=== PATIENT | male | born 1990 | race American Indian/Alaskan Native ===

== ENCOUNTER 2021-04-13 22:26 | Inpatient (IN) | payer SELFPAY ==
[2021-04-13] MEDS ORDERED: methylPREDNISolone Sod Succinate 125 MG/2 ML INJ IV ONE (22:37)
[2021-04-13] MEDS ORDERED: ALBUTEROL 2.5 MG/3 ML NEBU IH ONE (22:37)
[2021-04-13] MEDS ORDERED: SODIUM CHLORIDE 0.9% 1000 ML 1,000 ML IV ONE (22:37)
[2021-04-13] MEDS ORDERED: MAGNESIUM SULFATE 2 GM/50 ML BAG IV ONE (22:37)
[2021-04-13] MEDS ORDERED: CEFEPIME/NS 1 GM/100 ML 1 GM/100 ML BAG IV ONE (22:37)
[2021-04-13] MEDS ORDERED: IPRATROPIUM 0.02% NEBU 2.5 ML IH ONE (22:37)
[2021-04-13] MEDS ORDERED: AZITHROMYCIN/NS 500 MG/250 ML 500 MG/250 ML BAG IV ONE (22:37)
--- NOTE | 2021-04-13 22:40 | Emergency Department Report ---
ED Shortness of Breath HPI - General Chief Complaint: Dyspnea/Respdistress Stated Complaint: SOB, Time Seen by Provider: 04/13/21 22:34 Source: patient, EMS Mode of arrival: Stretcher Limitations: No Limitations - History of Present Illness Initial Comments: Patient is a 31-year-old male who presents emergency room for shortness of breath and fever and asthmatic sounds. Patient states his symptoms started 2 days ago. Patient states symptoms are worsening. Patient states his symptoms are so bad he had to call EMS to come to the hospital. Patient states he is not vaccinated against COVID-19. Patient states that his entire family has Covid at this time. Patient states he has not been tested. Patient states he has multiple sick contacts with your family members with COVID-19. While patient was in the care of EMS and waiting to be assigned a room, EMS took the patient to the bathroom and when the patient went to the standing position h e had a syncopal episode. Syncopal episode was witnessed by EMS. EMS states the caught him and helped him to the floor. EMS states the patient did not hit his head. Patient syncopal episode and loss of consciousness was per brief few seconds. After syncopal episode, the patient was answering questions appropriately. Patient was able to stand up and ambulate to the stretcher with assistance. Patient was then placed on an ER stretcher and transferred to room 20. Report received from EMS. EMS states the patient hypoxic and placed on 2 L of oxygen. Patient was also given albuterol for wheezing. Patient ox improved with albuterol. MD Complaint: shortness of breath -: Sudden Severity: severe Consistency: constant Improves With: rest, bronchodilators Worsens With: exertion Known History Of: asthma Context: recent URI Associated Symptoms: syncope Treatments Prior to Arrival: oxygen, bronchodilator - Related Data Home Oxygen Therapy: No Allergies Allergy/AdvReac Type Severity Reaction Status Date / Time No Known Allergies Allergy Verified 04/13/21 22:40 ED Review of Systems ROS: Stated complaint: SOB, Other details as noted in HPI Constitutional: chills, fever Eyes: denies: eye pain, eye discharge, vision change ENT: denies: ear pain, throat pain Respiratory: cough, shortness of breath, SOB with exertion, SOB at rest, wheezing Cardiovascular: denies: chest pain, palpitations Endocrine: no symptoms reported Gastrointestinal: denies: abdominal pain, nausea, diarrhea Genitourinary: denies: urgency, dysuria Musculoskeletal: denies: back pain, joint swelling, arthralgia Skin: denies: rash, lesions Neurological: as per HPI. denies: headache, paresthesias Psychiatric: denies: anxiety, depression Hematological/Lymphatic: denies: easy bleeding, easy bruising ED Past Medical Hx - Past Medical History Previous Medical History?: Yes Hx Asthma: Yes - Surgical History Past Surgical History?: No - Family History Family history: no significant - Social History Smoking Status: Never Smoker Substance Use Type: None ED Physical Exam - General Limitations: No Limitations General appearance: alert, in distress - Head Head exam: Present: atraumatic, normocephalic - Eye Eye exam: Present: normal appearance - ENT ENT exam: Present: mucous membranes dry - Neck Neck exam: Present: normal inspection - Respiratory Respiratory exam: Present: respiratory distress, wheezes, accessory muscle use - Cardiovascular Cardiovascular Exam: Present: regular rate, normal rhythm. Absent: systolic murmur, diastolic murmur, rubs, gallop - GI/Abdominal GI/Abdominal exam: Present: soft, normal bowel sounds - Rectal Rectal exam: Present: deferred - Extremities Exam Extremities exam: Present: normal inspection - Back Exam Back exam: Present: normal inspection - Neurological Exam Neurological exam: Present: alert, oriented X3 - Psychiatric Psychiatric exam: Present: normal affect, normal mood - Skin Skin exam: Present: warm, normal color, diaphoretic. Absent: rash ED Course Vital Signs 04/13/21 04/13/21 04/13/21 22:27 22:36 23:00 Temperature 99.5 F 100.0 F H Pulse Rate 98 H 113 H 104 H Respiratory 17 18 13 Rate Blood Pressure 102/56 115/75 Blood Pressure 124/70 [Left] O2 Sat by Pulse 94 97 97 Oximetry 04/13/21 04/14/21 04/14/21 23:30 00:00 01:31 Temperature Pulse Rate 90 82 88 Respiratory 17 11 L 17 Rate Blood Pressure 111/59 127/76 110/67 Blood Pressure [Left] O2 Sat by Pulse 96 Oximetry 04/14/21 02:32 Temperature 98.5 F Pulse Rate 86 Respiratory 21 Rate Blood Pressure Blood Pressure 117/72 [Left] O2 Sat by Pulse 98 Oximetry - Reevaluation(s) Reevaluation #1: Patient received antibiotics, breathing treatment and steroids. Patient states he is feeling a little bit better. Patient oxygen has improved. Patient still requiring oxygen support. 04/13/21 23:45 Reevaluation #2: I discussed all results with patient. I discussed plan of care with patient. Patient agrees with plan of care and admission. Patient to be admitted to the hospitalist service. 04/14/21 02:45 - Consultations Consultation #1: Hospitalist consulted for admission. Hospitalist to admit patient. 04/14/21 02:45 ED Medical Decision Making - Lab Data Result diagrams: 04/13/21 23:02 04/13/21 23:02 - EKG Data -: EKG Interpreted by Me EKG shows normal: sinus rhythm, axis, intervals, QRS complexes, ST-T waves Rate: normal - Radiology Data Radiology results: report reviewed, image reviewed interpreted by me: Chest x-ray: Bilateral pneumonia, no pneumothorax, no foreign body, no osseous findings, XR chest 1V ap INDICATION / CLINICAL INFORMATION: Dyspnea. COMPARISON: None available. FINDINGS: SUPPORT DEVICES: None. HEART /PULMONARY VASCULATURE: Cardiac silhouette is accentuated by low lung volumes. No significant pulmonary vasculature congestion. LUNGS / PLEURA: Moderate multifocal pulmonary airspace opacities are present. No sizable pleural effusion. No pneumothorax. ADDITIONAL FINDINGS: No significant additional findings. IMPRESSION: Bilateral pulmonary airspace opacities, concerning for atypical pneumonia. CT HEAD WITHOUT CONTRAST INDICATION / CLINICAL INFORMATION: syncope. TECHNIQUE: All CT scans at this location are performed using CT dose reduction for ALARA by means of automated exposure control. COMPARISON: None available. FINDINGS: BRAIN PARENCHYMA: No acute intracranial hemorrhage. No evidence of recent infarct. No mass effect or midline shift. VENTRICULAR SYSTEM/EXTRA-AXIAL SPACES: Ventricles are normal for age. No extra- axial fluid collection. ORBITS: Normal as visualized. SKELETAL SYSTEM/SOFT TISSUES: Normal bones and soft tissues. PARANASAL SINUSES/MASTOID AIR CELLS: No significant abnormality. ADDITIONAL FINDINGS: None. IMPRESSION: 1. No acute intracranial abnormality. CTA CHEST WITH CONTRAST INDICATION / CLINICAL INFORMATION: sob. hypoxia, syncope. TECHNIQUE: Axial CT images were obtained through the chest after injection of 100 cc Omnipaque 350 IV contrast. 3 plane MIP and/or 3D reconstructions were produced. All CT scans at this location are performed using CT dose reduction for ALARA by means of automated exposure control. COMPARISON: Chest radiograph from yesterday, 04/13/2021 FINDINGS: PULMONARY ARTERIES: No central or segmental pulmonary embolus. THORACIC AORTA: No significant abnormality. HEART: No significant abnormality. ADENOPATHY: Shotty mediastinal and hilar lymph nodes, likely reactive. LUNGS/PLEURA: Moderate multifocal peripheral predominant airspace consolidation. No pleural effusion. No pneumothorax. ADDITIONAL FINDINGS: None. UPPER ABDOMEN: No acute findings. SKELETAL STRUCTURES: No significant osseous abnormality. IMPRESSION: 1. No evidence for pulmonary embolism. 2. Moderate multifocal peripheral predominant airspace consolidation, most compatible with atypical pneumonia. These findings are typical for COVID. - Medical Decision Making Patient is a 31-year-old male who presents emergency room with complaints of shortness of breath. Patient brought in by EMS. Patient found to have as thmatic breathing and hypoxia by EMS and placed on oxygen given albuterol. Patient to wheeze. While patient is waiting to be seen, EMS took the patient back immediately syncopal episode. 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 After his evaluation, the patient was placed back on oxygen due to hypoxia and the patient was given IV antibiotics, IV steroids and magnesium. Patient responded well to treatment. Patient had a CT scan to rule out intracranial process due to syncopal episode. Patient CT scan of the head was negative for acute finding. Patient had a chest x-ray which shows bilateral pneumonia. Due to acidosis and elevated D-dimer, the patient had a CT a of the chest to rule out a acute pulmonary embolism. Patient CTA showed bilateral pneumonia consistent with COVID-19 and was negative for PEs. Patient was monitored for several hours. Patient's oxygen improved but still required oxygen support. Patient admitted to the hospital service for further evaluation and treatment. Critical care time documented due to the multiple reassessments, prolonged time at the bedside, interpretation of diagnostics and labs. - Differential Diagnosis Covid, pneumonia, hypoxia, respiratory failure, asthma Critical Care Time: Yes Critical care time in (mins) excluding proc time.: 45 Critical care attestation.: If time is entered above; I have spent that time in minutes in the direct care of this critically ill patient, excluding procedure time. Critical Care Time: 45 minutes ED Disposition Clinical Impression: Shortness of breath, COVID-19, Hypoxia Syncopal episodes Qualifiers: Syncope type: unspecified Qualified Code(s): R55 - Syncope and collapse Respiratory failure Qualifiers: Chronicity: acute Respiratory failure complication: hypoxia Qualified Code(s): J96.01 - Acute respiratory failure with hypoxia Status asthmaticus Qualifiers: Asthma severity: severe Asthma persistence: unspecified Qualified Code(s): J45.902 - Unspecified asthma with status asthmaticus Acute renal failure Qualifiers: Acute renal failure type: unspecified Qualified Code(s): N17.9 - Acute kidney failure, unspecified Disposition: ADMITTED INPATIENT Is pt being admited?: Yes Does the pt Need Aspirin: No Condition: Critical Instructions: Syncope (ED) Time of Disposition: 02:51
--- NOTE | 2021-04-13 23:10 | XRay Report ---
XR chest 1V ap INDICATION / CLINICAL INFORMATION: Dyspnea. COMPARISON: None available. FINDINGS: SUPPORT DEVICES: None. HEART /PULMONARY VASCULATURE: Cardiac silhouette is accentuated by low lung volumes. No significant p ulmonary vasculature congestion. LUNGS / PLEURA: Moderate multifocal pulmonary airspace opacities are present. No sizable pleural effu antwan. No pneumothorax. ADDITIONAL FINDINGS: No significant additional findings. IMPRESSION: Bilateral pulmonary airspace opacities, concerning for atypical pneumonia. Signer Name: Gael Peters MD Signed: 04/13/2021 11:05 PM Workstation Name: [id number]
[2021-04-13 23:27] LABS: Basophils % (Auto) 0.6 % (0.0-1.8); Hematocrit 40.9 % (35.5-45.6); Hemoglobin 13.2 gm/dl (11.8-15.2); Lymphocytes % (Auto) 13.9 % (13.4-35.0); Mean Corpuscular HGB Conc 32 % (32-34); Mean Corpuscular Volume 81 fl (84-94); Monocytes # (Auto) 0.4 K/mm3 (0.0-0.8); Platelet Count 195 K/mm3 (140-440); Red Blood Count 5.09 M/mm3 (3.65-5.03); Red Cell Distribution Width 14.6 % (13.2-15.2)
[2021-04-13 23:45] LABS: Albumin 3.4 g/dL (3.9-5); Calcium 8.6 mg/dL (8.4-10.2)
--- NOTE | 2021-04-14 00:47 | Cat Scan Report ---
CT HEAD WITHOUT CONTRAST INDICATION / CLINICAL INFORMATION: syncope. TECHNIQUE: All CT scans at this location are performed using CT dose reduction for ALARA by means of automated exposure control. COMPARISON: None available. FINDINGS: BRAIN PARENCHYMA: No acute intracranial hemorrhage. No evidence of recent infarct. No mass effect or midline shift. VENTRICULAR SYSTEM/EXTRA-AXIAL SPACES: Ventricles are normal for age. No extra-axial fluid collection . ORBITS: Normal as visualized. SKELETAL SYSTEM/SOFT TISSUES: Normal bones and soft tissues. PARANASAL SINUSES/MASTOID AIR CELLS: No significant abnormality. ADDITIONAL FINDINGS: None. IMPRESSION: 1. No acute intracranial abnormality. Signer Name: Gael Peters MD Signed: 04/14/2021 12:42 AM Workstation Name: [id number]
--- NOTE | 2021-04-14 02:38 | Cat Scan Report ---
CTA CHEST WITH CONTRAST INDICATION / CLINICAL INFORMATION: sob. hypoxia, syncope. TECHNIQUE: Axial CT images were obtained through the chest after injection of 100 cc Omnipaque 350 IV contrast. 3 plane MIP and/or 3D reconstructions were produced. All CT scans at this location are per formed using CT dose reduction for ALARA by means of automated exposure control. COMPARISON: Chest radiograph from yesterday, 04/13/2021 FINDINGS: PULMONARY ARTERIES: No central or segmental pulmonary embolus. THORACIC AORTA: No significant abnormality. HEART: No significant abnormality. ADENOPATHY: Shotty mediastinal and hilar lymph nodes, likely reactive. LUNGS/PLEURA: Moderate multifocal peripheral predominant airspace consolidation. No pleural effusion. No pneumothorax. ADDITIONAL FINDINGS: None. UPPER ABDOMEN: No acute findings. SKELETAL STRUCTURES: No significant osseous abnormality. IMPRESSION: 1. No evidence for pulmonary embolism. 2. Moderate multifocal peripheral predominant airspace consolidation, most compatible with atypical p neumonia. These findings are typical for COVID. Signer Name: Gael Peters MD Signed: 04/14/2021 2:33 AM Workstation Name: [id number]
[2021-04-14 02:58] LABS: C-Reactive Protein 2.5 mg/dL (0.00-1.30)
[2021-04-14] MEDS ORDERED: HYDROmorphone 1 MG/1 ML INJ IV PRN (04:31)
[2021-04-14] MEDS ORDERED: ALBUTEROL 2.5 MG/3 ML NEBU IH PRN (04:31)
[2021-04-14] MEDS ORDERED: ONDANSETRON 4 MG/2 ML INJ IV PRN (04:31)
[2021-04-14] MEDS ORDERED: MORPHINE 2 MG/1 ML INJ IV PRN (04:31)
[2021-04-14] MEDS ORDERED: hydrALAZINE 20 MG/1 ML INJ IV PRN (04:34)
--- NOTE | 2021-04-14 04:41 | History and Physical Report ---
History of Present Illness Date of examination: 04/14/21 Date of admission: 04/14/21 02:52 Chief complaint: Dyspnea Respiratory distress History of present illness: 31-year-old male with history of asthma was brought to the hospital for progressive shortness of breath and fever for the last 2 days. Patient states symptoms are worsening. Patient states his symptoms are so bad he had to call EMS to come to the hospital. Patient states he is not vaccinated against COVID- 19. Patient states that his entire family has Covid at this time. Patient states he has not been tested. Patient states he has multiple sick contacts with your family members with COVID-19. While patient was in the care of EMS and waiting to be assigned a room, EMS took the patient to the bathroom and when the patient went to the standing position he had a syncopal episode. Syncopal episode was witnessed by EMS. EMS states the caught him and helped him to the floor. EMS states the patient did not hit his head. Patient syncopal episode and loss of consciousness was per brief few seconds. After syncopal episode, the patient was answering questions appropriately. Patient was able to stand up and ambulate to the stretcher with assistance. Patient was then placed on an ER stretcher and transferred to room 20. Report received from EMS. EMS states the patient hypoxic and placed on 2 L of oxygen. Patient was also given albuterol for wheezing. Patient ox improved with albuterol. In the emergency room patient is found to have Covid pneumonia and respiratory failure.'s were going to admit the patient, we will put the patient pneumonia pathway will consult infectious disease as well as pulmonary for evaluation Past History Past Medical History: other (Asthma) Medications and Allergies Allergies Allergy/AdvReac Type Severity Reaction Status Date / Time No Known Allergies Allergy Verified 04/13/21 22:40 Active Meds: Active Medications Acetaminophen (Acetaminophen 325 Mg Tab) 650 mg PO Q4H PRN PRN Reason: Pain MILD(1-3)/Fever >100.5/SHER Albuterol (Albuterol 2.5 Mg/3 Ml Nebu) 2.5 mg IH Q4HRT PRN PRN Reason: Shortness Of Breath Albuterol/Ipratropium (Ipratropium/Albuterol Sulfate 3 Ml Ampul.Neb) 1 ampul IH Q6HRT [facility] Ascorbic Acid (Ascorbic Acid 500 Mg Tab) 500 mg PO BID [facility] Cholecalciferol (Cholecalciferol (Vit D3) 5,000 Unit Tab) 5,000 unit PO DAILY [facility] Dexamethasone (Dexamethasone 4 Mg/Ml Vial) 6 mg IV DAILY [facility] Famotidine (Famotidine 20 Mg Tab) 20 mg PO BID [facility] Heparin Sodium (Porcine) (Heparin 5,000 Unit/1 Ml Vial) 5,000 unit SUB-Q Q8HR [facility] Hydralazine HCl (Hydralazine 20 Mg/1 Ml Inj) 10 mg IV Q6H PRN PRN Reason: Blood Pressure Hydromorphone HCl (Hydromorphone 1 Mg/1 Ml Inj) 0.5 mg IV Q3H PRN PRN Reason: Pain , Severe (7-10) Ceftriaxone Sodium (Rocephin/Ns 2 Gm/100 Ml) 2 gm in 100 mls @ 200 mls/hr IV Q24H [facility]; Protocol Azithromycin (Zithromax/Ns) 500 mg in 250 mls @ 250 mls/hr IV Q24H [facility]; Protocol Morphine Sulfate (Morphine 2 Mg/1 Ml Inj) 2 mg IV Q4H PRN PRN Reason: Pain, Moderate (4-6) Ondansetron HCl (Ondansetron 4 Mg/2 Ml Inj) 4 mg IV Q8H PRN PRN Reason: Nausea And Vomiting Sodium Chloride (Sodium Chloride 0.9% 10 Ml Flush Syringe) 10 ml IV BID [facility] Sodium Chloride (Sodium Chloride 0.9% 10 Ml Flush Syringe) 10 ml IV PRN PRN PRN Reason: LINE FLUSH Zinc Sulfate (Zinc Sulfate 220 Mg Cap) 220 mg PO BID [facility] Review of Systems All systems: negative Constitutional: lethargy Cardiovascular: shortness of breath, dyspnea on exertion Respiratory: cough, shortness of breath, dyspnea on exertion Exam - Constitutional Vitals: Temp Pulse Resp BP Pulse Ox 98.5 F 72 25 H 112/62 95 04/14/21 02:32 04/14/21 04:01 04/14/21 04:01 04/14/21 04:01 04/14/21 03:31 General appearance: Present: mild distress, well-nourished - EENT Eyes: Present: PERRL ENT: hearing intact, clear oral mucosa - Neck Neck: Present: supple, normal ROM - Respiratory Respiratory effort: normal Respiratory: bilateral: diminished, wheezing - Cardiovascular Heart Sounds: Present: S1 & S2. Absent: rub, click - Extremities Extremities: pulses symmetrical, No edema Peripheral Pulses: within normal limits - Abdominal General gastrointestinal: Present: soft, non-tender, non-distended, normal bowel sounds Male genitourinary: Present: normal - Integumentary Integumentary: Present: clear, warm, dry - Musculoskeletal Musculoskeletal: gait normal, strength equal bilaterally - Psychiatric Psychiatric: appropriate mood/affect, intact judgment & insight - Neurologic Neurologic: CNII-XII intact, moves all extremities HEART Score - HEART Score Troponin: Troponin T < 0.010 ng/mL (0.00-0.029) 04/13/21 23: Results - Labs CBC & Chem 7: 04/13/21 23:02 04/13/21 23:02 Labs: Laboratory Last Values WBC 7.3 K/mm3 (4.5-11.0) 04/13/21 23: RBC 5.09 M/mm3 (3.65-5.03) H 04/13/21 23:02 Hgb 13.2 gm/dl (11.8-15.2) 04/13/21 23:02 Hct 40.9 % (35.5-45.6) 04/13/21 23:02 MCV 81 fl (84-94) L 04/13/21 23:02 MCH 26 pg (28-32) L 04/13/21 23:02 MCHC 32 % (32-34) 04/13/21 23: RDW 14.6 % (13.2-15.2) 04/13/21 23:02 Plt Count 195 K/mm3 (140-440) 04/13/21 23:02 Lymph % (Auto) 13.9 % (13.4-35.0) 04/13/21 23: Bracken % (Auto) 6.0 % (0.0-7.3) 04/13/21 23: Eos % (Auto) 0.0 % (0.0-4.3) 04/13/21 23: Baso % (Auto) 0.6 % (0.0-1.8) 04/13/21 23: Lymph # (Auto) 1.0 K/mm3 (1.2-5.4) L 04/13/21 23:02 Bracken # (Auto) 0.4 K/mm3 (0.0-0.8) 04/13/21 23:02 Eos # (Auto) 0.0 K/mm3 (0.0-0.4) 04/13/21 23:02 Baso # (Auto) 0.0 K/mm3 (0.0-0.1) 04/13/21 23:02 Seg Neutrophils % 79.5 % (40.0-70.0) H 04/13/21 23:02 Seg Neutrophils # 5.8 K/mm3 (1.8-7.7) 04/13/21 23:02 D-Dimer 440.91 ng/mlDDU (0-234) H 04/13/21 23:02 Sodium 137 mmol/L (137-145) 04/13/21 23:02 Potassium 3.9 mmol/L (3.6-5.0) 04/13/21 23:02 Chloride 99.9 mmol/L (98-107) 04/13/21 23:02 Carbon Dioxide 22 mmol/L (22-30) 04/13/21 23:02 Anion Gap 19 mmol/L 04/13/21 23:02 BUN 15 mg/dL (9-20) 04/13/21 23:02 Creatinine 2.1 mg/dL (0.8-1.3) H 04/13/21 23:02 Estimated GFR 45 ml/min 04/13/21 23:02 BUN/Creatinine Ratio 7 % 04/13/21 23:02 Glucose 123 mg/dL (75-100) H 04/13/21 23:02 Glucose 124 mg/dL (75-100) H 04/13/21 23:02 Lactic Acid 0.90 mmol/L (0.7-2.0) 04/13/21 23:02 Calcium 8.6 mg/dL (8.4-10.2) 04/13/21 23:02 Ferritin 519.6 ng/mL (30.0-300.0) H 04/13/21 23:02 Total Bilirubin 0.50 mg/dL (0.1-1.2) 04/13/21 23:02 AST 48 units/L (5-40) H 04/13/21 23:02 ALT 32 units/L (7-56) 04/13/21 23:02 Alkaline Phosphatase 73 units/L (35-129) 04/13/21 23:02 Lactate Dehydrogenase 439 units/L (91-180) H 04/13/21 23:02 Troponin T < 0.010 ng/mL (0.00-0.029) 04/13/21 23:02 C-Reactive Protein 2.50 mg/dL (0.00-1.30) H 04/13/21 23:02 Total Protein 7.5 g/dL (6.3-8.2) 04/13/21 23:02 Albumin 3.4 g/dL (3.9-5) L 04/13/21 23:02 Albumin/Globulin Ratio 0.8 % 04/13/21 23:02 Microbiology: Microbiology 04/13/21 23:38 Peripheral/Venous Blood Culture - Preliminary Culture in Progress 04/13/21 23:02 Peripheral/Venous Blood Culture - Preliminary Culture in Progress - Imaging and Cardiology Chest x-ray: report reviewed CT scan - chest: report reviewed Assessment and Plan VTE prophylaxis?: Chemical Plan of care discussed with patient/family: Yes - Patient Problems (1) Acute respiratory failure Current Visit: Yes Status: Acute Plan to address problem: Admit the patient to the IMCU. Oxygen via nasal catheter per minute. DuoNeb by nebulizer every 4 hours. Albuterol 2.5 mg by nebulizer every 4 hours as needed. Dexamethasone 6 mg IV daily. Rocephin 2 g IV daily. Zithromax 500 mg IV daily. We will do the blood cultures sputum culture vitamin C 500 mg p.o. twice daily and zinc to 20 mg p.o. twice daily. Will consult infectious disease as we ll as pulmonary for evaluation. Follow Covid inflammatory marker (2) Pneumonia Current Visit: Yes Status: Acute Plan to address problem: Oxygen via nasal catheter per minute. DuoNeb by nebulizer every 4 hours. Albuterol 2.5 mg by nebulizer every 4 hours as needed. Dexamethasone 6 mg IV daily. Rocephin 2 g IV daily. Zithromax 500 mg IV daily. We will do the blood cultures sputum culture . Will consult infectious disease as well as pulmonary for evaluation. Follow Covid inflammatory marker (3) Acute renal failure Current Visit: Yes Status: Acute Qualifiers: Acute renal failure type: unspecified Qualified Code(s): N17.9 - Acute kidney failure, unspecified Plan to address problem: Half-normal saline at the rate of 100 cc/h. Avoid nephrotoxic drug. Renally dose medication. Recheck BMP in the morning (4) COVID-19 Current Visit: Yes Status: Acute Plan to address problem: Oxygen via nasal catheter per minute. DuoNeb by nebulizer every 4 hours. Albuterol 2.5 mg by nebulizer every 4 hours as needed. Dexamethasone 6 mg IV daily. Rocephin 2 g IV daily. Zithromax 500 mg IV daily. We will do the blood cultures sputum culture vitamin C 500 mg p.o. twice daily and zinc to 20 mg p.o. twice daily. Will consult infectious disease as well as pulmonary for evaluation. Follow Covid inflammatory marker (5) Respiratory failure Current Visit: Yes Status: Acute Qualifiers: Chronicity: acute Respiratory failure complication: hypoxia Qualified Code(s): J96.01 - Acute respiratory failure with hypoxia Plan to address problem: Oxygen via nasal catheter per minute. DuoNeb by nebulizer every 4 hours. Albuterol 2.5 mg by nebulizer every 4 hours as needed. Dexamethasone 6 mg IV daily. Rocephin 2 g IV daily. Zithromax 500 mg IV daily. We will do the blood cultures sputum culture vitamin C 500 mg p.o. twice daily and zinc to 20 mg p.o. twice daily. Will consult infectious disease as well as pulmonary for evaluation. Follow Covid inflammatory marker (6) Syncopal episodes Current Visit: Yes Status: Acute Qualifiers: Syncope type: unspecified Qualified Code(s): R55 - Syncope and collapse Plan to address problem: Half-normal saline at the rate of 100 cc/h. We will monitor the patient cl osely. (7) DVT prophylaxis Current Visit: Yes Status: Acute Plan to address problem: Heparin 5000 units subcu every 8 hours. Pepcid 20 mg p.o. twice daily for GI prophylaxis. Patient is a full code
[2021-04-14] MEDS: cefTRIAXone/NS 2 GM/100 ML 2 GM/100 ML BAG IV SCH (04:56)
[2021-04-14] MEDS: HEPARIN 5,000 UNIT/1 ML VIAL SUB-Q SCH ×3 (06:05→23:32)
[2021-04-14] MEDS: AZITHROMYCIN/NS 500 MG/250 ML 500 MG/250 ML BAG IV SCH (06:30)
[2021-04-14] MEDS: IPRATROPIUM/ALBUTEROL SULFATE 3 ML AMPUL.NEB IH SCH ×3 (08:33→19:45)
[2021-04-14] MEDS ORDERED: dexAMETHasone 4 MG/ML VIAL IV SCH (10:00)
[2021-04-14] MEDS: ASCORBIC ACID 500 MG TAB PO SCH ×2 (10:59→23:34)
[2021-04-14] MEDS: FAMOTIDINE 10 MG TAB PO SCH ×2 (10:59→23:33)
[2021-04-14] MEDS: ZINC SULFATE 220 MG CAP PO SCH ×2 (10:59→23:34)
--- NOTE | 2021-04-14 13:01 | Event Note ---
Date: 04/14/21 Consulted by IMS overnight for acute respiratory failure. Per documentation patient is on 4 liters NC. Speaking with ED nurse he is now on 3 liters. Will ask IMS to downgrade patient to COVID floor. Agree with treating empirically with steroids. If positive should be a candidate for remdesivir at least. Will follow.
--- NOTE | 2021-04-14 21:51 | Progress Note ---
Assessment and Plan Assessment and plan: 31-year-old male with history of asthma was brought to the hospital for progressive shortness of breath and fever for the last 2 days. Patient states symptoms are worsening. Patient states his symptoms are so bad he had to call EMS to come to the hospital. Patient states he is not vaccinated against COVID- 19. Patient states that his entire family has Covid at this time. Patient states he has not been tested. Patient states he has multiple sick contacts with your family members with COVID-19. While patient was in the care of EMS and waiting to be assigned a room, EMS took the patient to the bathroom and when the patient went to the standing position he had a syncopal episode. Syncopal episode was witnessed by EMS. EMS states the caught him and helped him to the floor. EMS states the patient did not hit his head. Patient syncopal episode and loss of consciousness was per brief few seconds. After syncopal episode, the patient was answering questions appropriately. Patient was able to stand up and ambulate to the stretcher with assistance. Patient was then placed on an ER stretcher and transferred to room 20. Report received from EMS. EMS states the patient hypoxic and placed on 2 L of oxygen. Patient was also given albuterol for wheezing. Patient ox improved with albuterol. In the emergency room patient is found to have Covid pneumonia and respiratory failure. (1) Acute hypoxic respiratory failure Current Visit: Yes Status: Acute Plan to address problem: Admit and place under isolation as per protocol. Oxygen via nasal catheter per minute. DuoNeb by nebulizer every 4 hours. Albuterol 2.5 mg by nebulizer every 4 hours as needed. Dexamethasone 6 mg IV daily. Rocephin 2 g IV daily. Zithromax 500 mg IV daily. We will do the blood cultures sputum culture vitamin C 500 mg p.o. twice daily and zinc to 20 mg p.o. twice daily. Will consult infectious disease as well as pulmonary for evaluation. Follow Covid inflammatory marker On 04/14, patient is currently needing O2 less than 5 L. Mentating well. Not in acute respiratory distress. He is okay to go to regular medical floor rather than IM. (2) COVID-19 pneumonia Current Visit: Yes Status: Acute Plan to address problem: Oxygen via nasal catheter per minute. DuoNeb by nebulizer every 4 hours. Albuterol 2.5 mg by nebulizer every 4 hours as needed. Dexamethasone 6 mg IV daily. Rocephin 2 g IV daily. Zithromax 500 mg IV daily. We will do the blood cultures sputum culture . Will consult infectious disease as well as pulmonary for evaluation. Follow Covid inflammatory marker 04/14, we will start remdesivir (3) D-dimer 440 CTA negative for PE but did show bilateral pneumonia. (4) acute renal insufficiency, OPHELIA Current Visit: Yes Status: Acute Qualifiers: Acute renal failure type: unspecified Qualified Code(s): N17.9 - Acute kidney failure, unspecified Plan to address problem: Creatinine 2.1 with unknown baseline. Hydrating with half-normal saline at the rate of 100 cc/h. Avoid nephrotoxic drug. Renally dose medication. Recheck BMP in the morning (5) Bronchial asthma No significant exacerbation Will place him on Symbicort and proair (6) syncopal episode in ED bathroom Current Visit: Yes Status: Acute Qualifiers: Syncope type: unspecified Qualified Code(s): R55 - Syncope and collapse Plan to address problem: Likely vasovagal after walking to bathroom to ED from dehydration, hypoxia and exertional pulmonary decompensation clear conjugated Hydrating with half-normal saline at the rate of 100 cc/h. He is mentating well currently. We will monitor the patient closely. (7) DVT prophylaxis Current Visit: Yes Status: Acute Plan to address problem: Heparin 5000 units subcu every 8 hours. Pepcid 20 mg p.o. twice daily for GI prophylaxis. Patient is a full code Discussed with the patient in detail. History Interval history: Patient is alert with acute respiratory distress. Mentating well. T-max 100. Patient says that he is doing better. Remains on supplemental O2, less than 5 L currently. Tolerating diet. Hospitalist Physical - Constitutional Vitals: Temp Pulse Resp BP Pulse Ox 97.9 F 76 20 119/78 98 04/14/21 17:04 04/14/21 19:46 04/14/21 19:46 04/14/21 18:01 04/14/21 19:46 General appearance: Present: mild distress, well-nourished - EENT Eyes: Present: PERRL, EOM intact. Absent: scleral icterus ENT: clear oral mucosa - Neck Neck: Present: supple - Respiratory Respiratory effort: normal Respiratory: bilateral: diminished - Cardiovascular Rhythm: regular - Extremities Extremities: No edema - Abdominal General gastrointestinal: soft, non-tender, non-distended, normal bowel sounds - Integumentary Integumentary: Absent: rash - Psychiatric Psychiatric: appropriate mood/affect - Neurologic Neurologic: no focal deficits, moves all extremities HEART Score - HEART Score Troponin: Troponin T < 0.010 ng/mL (0.00-0.029) 04/13/21 23:02 Results - Labs CBC & Chem 7: 04/15/21 07:38 04/15/21 07:38 Labs: Laboratory Last Values WBC 7.3 K/mm3 (4.5-11.0) 04/13/21 23: RBC 5.09 M/mm3 (3.65-5.03) H 04/13/21 23:02 Hgb 13.2 gm/dl (11.8-15.2) 04/13/21 23:02 Hct 40.9 % (35.5-45.6) 04/13/21 23:02 MCV 81 fl (84-94) L 04/13/21 23:02 MCH 26 pg (28-32) L 04/13/21 23:02 MCHC 32 % (32-34) 04/13/21 23:02 RDW 14.6 % (13.2-15.2) 04/13/21 23:02 Plt Count 195 K/mm3 (140-440) 04/13/21 23:02 Lymph % (Auto) 13.9 % (13.4-35.0) 04/13/21 23:02 Walton % (Auto) 6.0 % (0.0-7.3) 04/13/21 23:02 Eos % (Auto) 0.0 % (0.0-4.3) 04/13/21 23:02 Baso % (Auto) 0.6 % (0.0-1.8) 04/13/21 23:02 Lymph # (Auto) 1.0 K/mm3 (1.2-5.4) L 04/13/21 23: Walton # (Auto) 0.4 K/mm3 (0.0-0.8) 04/13/21 23: Eos # (Auto) 0.0 K/mm3 (0.0-0.4) 04/13/21 23:02 Baso # (Auto) 0.0 K/mm3 (0.0-0.1) 04/13/21 23:02 Seg Neutrophils % 79.5 % (40.0-70.0) H 04/13/21 23:02 Seg Neutrophils # 5.8 K/mm3 (1.8-7.7) 04/13/21 23:02 D-Dimer 440.91 ng/mlDDU (0-234) H 04/13/21 23:02 Sodium 137 mmol/L (137-145) 04/13/21 23:02 Potassium 3.9 mmol/L (3.6-5.0) 04/13/21 23:02 Chloride 99.9 mmol/L (98-107) 04/13/21 23:02 Carbon Dioxide 22 mmol/L (22-30) 04/13/21 23:02 Anion Gap 19 mmol/L 04/13/21 23:02 BUN 15 mg/dL (9-20) 04/13/21 23:02 Creatinine 2.1 mg/dL (0.8-1.3) H 04/13/21 23:02 Estimated GFR 45 ml/min 04/13/21 23:02 BUN/Creatinine Ratio 7 % 04/13/21 23:02 Glucose 123 mg/dL (75-100) H 04/13/21 23:02 Glucose 124 mg/dL (75-100) H 04/13/21 23:02 Lactic Acid 0.80 mmol/L (0.7-2.0) 04/14/21 04:24 Calcium 8.6 mg/dL (8.4-10.2) 04/13/21 23:02 Ferritin 519.6 ng/mL (30.0-300.0) H 04/13/21 23:02 Total Bilirubin 0.50 mg/dL (0.1-1.2) 04/13/21 23:02 AST 48 units/L (5-40) H 04/13/21 23:02 ALT 32 units/L (7-56) 04/13/21 23:02 Alkaline Phosphatase 73 units/L (35-129) 04/13/21 23:02 Lactate Dehydrogenase 439 units/L (91-180) H 04/13/21 23:02 Troponin T < 0.010 ng/mL (0.00-0.029) 04/13/21 23:02 C-Reactive Protein 2.50 mg/dL (0.00-1.30) H 04/13/21 23:02 Total Protein 7.5 g/dL (6.3-8.2) 04/13/21 23:02 Albumin 3.4 g/dL (3.9-5) L 04/13/21 23:02 Albumin/Globulin Ratio 0.8 % 04/13/21 23:02 Procalcitonin 7.48 ng/mL (<0.15) 04/13/21 23:02 Coronavirus (PCR) Positive (Negative) A 04/14/21 08:46 Microbiology: Microbiology 04/13/21 23:38 Peripheral/Venous Blood Culture - Preliminary Culture in Progress 04/13/21 23:02 Peripheral/Venous Blood Culture - Preliminary Culture in Progress Active Medications - Current Medications Current Medications: Generic Name Dose Route Start Last Admin Trade Name Freq PRN Reason Stop Dose Admin Acetaminophen 650 mg 04/14/21 04:31 Acetaminophen 325 Mg Tab PO Q4H PRN Pain MILD(1-3)/Fever >100.5/SHER Albuterol 2.5 mg 04/14/21 04:31 Albuterol 2.5 Mg/3 Ml Nebu IH Q4HRT PRN Shortness Of Breath Albuterol/Ipratropium 1 ampul 04/14/21 08:00 04/14/21 19:45 Ipratropium/Albuterol Sulfate 3 Ml Ampul.Neb IH 1 ampul Q6HRT [facility] Administration Ascorbic Acid 500 mg 04/14/21 10:00 04/14/21 10:59 Ascorbic Acid 500 Mg Tab PO 500 mg BID [facility] Administration Cholecalciferol 5,000 unit 04/14/21 10:00 Cholecalciferol (Vit D3) 5,000 Unit Tab PO DAILY [facility] Dexamethasone 6 mg 04/14/21 10:00 04/14/21 10:58 Dexamethasone 4 Mg/Ml Vial IV 6 mg DAILY [facility] Administration Famotidine 10 mg 04/14/21 10:00 04/14/21 10:59 Famotidine 10 Mg Tab PO 10 mg BID [facility] Administration Heparin Sodium (Porcine) 5,000 unit 04/14/21 06:00 04/14/21 16:54 Heparin 5,000 Unit/1 Ml Vial SUB-Q Not Given Q8HR [facility] Hydralazine HCl 10 mg 04/14/21 04:34 Hydralazine 20 Mg/1 Ml Inj IV Q6H PRN Blood Pressure Hydromorphone HCl 0.5 mg 04/14/21 04:31 Hydromorphone 1 Mg/1 Ml Inj IV Q3H PRN Pain , Severe (7-10) Ceftriaxone Sodium 2 gm in 100 mls @ 200 mls/hr 04/14/21 05:00 04/14/21 04:56 Rocephin/Ns 2 Gm/100 Ml IV 200 mls/hr Q24H [facility] Administration Protocol Azithromycin 500 mg in 250 mls @ 250 mls/hr 04/14/21 05:00 04/14/21 07:35 Zithromax/Ns IV Infused Q24H [facility] Infusion Protocol Morphine Sulfate 2 mg 04/14/21 04:31 Morphine 2 Mg/1 Ml Inj IV Q4H PRN Pain, Moderate (4-6) Ondansetron HCl 4 mg 04/14/21 04:31 Ondansetron 4 Mg/2 Ml Inj IV Q8H PRN Nausea And Vomiting Sodium Chloride 10 ml 04/14/21 10:00 04/14/21 10:59 Sodium Chloride 0.9% 10 Ml Flush Syringe IV 10 ml BID [facility] Administration Sodium Chloride 10 ml 04/14/21 04:31 Sodium Chloride 0.9% 10 Ml Flush Syringe IV PRN PRN LINE FLUSH Zinc Sulfate 220 mg 04/14/21 10:00 04/14/21 10:59 Zinc Sulfate 220 Mg Cap PO 220 mg BID [facility] Administration
[2021-04-15] MEDS: IPRATROPIUM/ALBUTEROL SULFATE 3 ML AMPUL.NEB IH SCH (02:31)
--- NOTE | 2021-04-15 02:52 | Progress Note ---
Assessment and Plan 31 y/o male with acute respiratory failure secondary to COVID pneumonia. 1. Suggest increasing steroids to either BID dosing on Dex or Solumedrol 40q8 2. Prone as tolerated during the day and sleep prone at night 3. Should be a candidate for Remdesivir. Not sure about actemra. From what I can find out, his oxygen was only increased for dyspnea not for desaturation so not sure if this qualifies him. 4. Suggest fluid restriction 5. Guarded prognosis given diagnosis and obesity. Subjective Date of service: 04/15/21 Interval history: Spoke with nurse via phone and states that now patient is on 10 liters. Per nursing RT increased to 10 for shortness of breath but no documentation of this. No documentation of desats. No documentation of proning. Patient is COVID positive. Morbidly obese as well. Objective - Constitutional Vitals: Vital Signs - 12hr 04/14/21 04/14/21 04/14/21 15:00 15:01 16:01 Temperature 98 F Pulse Rate 77 Pulse Rate [ Anterior Bilateral Throughout] Respiratory 17 Rate Respiratory Rate [Anterior Bilateral Throughout] Blood Pressure 112/64 117/58 Blood Pressure 112/64 [Left] O2 Sat by Pulse 97 97 97 Oximetry 04/14/21 04/14/21 04/14/21 17:01 17:04 18:01 Temperature 97.9 F Pulse Rate 75 75 75 Pulse Rate [ Anterior Bilateral Throughout] Respiratory 17 17 23 Rate Respiratory Rate [Anterior Bilateral Throughout] Blood Pressure 128/69 119/78 Blood Pressure 128/69 [Left] O2 Sat by Pulse 95 97 94 Oximetry 04/14/21 04/14/21 04/14/21 18:41 18:51 19:01 Temperature Pulse Rate 74 78 76 Pulse Rate [ Anterior Bilateral Throughout] Respiratory 18 19 12 Rate Respiratory Rate [Anterior Bilateral Throughout] Blood Pressure 119/78 119/78 110/72 Blood Pressure [Left] O2 Sat by Pulse 93 99 97 Oximetry 04/14/21 04/14/21 04/14/21 19:11 19:21 19:31 Temperature Pulse Rate 74 60 60 Pulse Rate [ Anterior Bilateral Throughout] Respiratory 16 21 11 L Rate Respiratory Rate [Anterior Bilateral Throughout] Blood Pressure 110/72 110/72 110/72 Blood Pressure [Left] O2 Sat by Pulse 98 97 98 Oximetry 04/14/21 04/14/21 04/14/21 19:41 19:46 19:51 Temperature Pulse Rate 67 79 Pulse Rate [ 76 Anterior Bilateral Throughout] Respiratory 14 15 Rate Respiratory 20 Rate [Anterior Bilateral Throughout] Blood Pressure 110/72 110/72 Blood Pressure [Left] O2 Sat by Pulse 95 98 96 Oximetry 04/14/21 04/14/21 04/14/21 20:01 20:11 20:21 Temperature Pulse Rate 78 78 71 Pulse Rate [ Anterior Bilateral Throughout] Respiratory 16 19 12 Rate Respiratory Rate [Anterior Bilateral Throughout] Blood Pressure 127/65 127/65 127/65 Blood Pressure [Left] O2 Sat by Pulse 94 96 95 Oximetry 04/14/21 04/14/21 04/14/21 20:49 21:49 23:04 Temperature 97.4 F L Pulse Rate 74 Pulse Rate [ 72 Anterior Bilateral Throughout] Respiratory 20 Rate Respiratory 16 Rate [Anterior Bilateral Throughout] Blood Pressure 119/56 Blood Pressure [Left] O2 Sat by Pulse 99 100 Oximetry 04/15/21 04/15/21 00:00 02:00 Temperature Pulse Rate Pulse Rate [ 75 Anterior Bilateral Throughout] Respiratory Rate Respiratory 16 Rate [Anterior Bilateral Throughout] Blood Pressure Blood Pressure [Left] O2 Sat by Pulse 99 Oximetry - Labs CBC & Chem 7: 04/13/21 23:02 04/13/21 23:02 Labs: Abnormal lab results 04/13/21 04/13/21 04/14/21 Range/Units 23:02 23:02 08:46 Ferritin 519.6 H (30.0-300.0) ng/mL Lactate Dehydrogenase 439 H (91-180) units/L C-Reactive Protein 2.50 H (0.00-1.30) mg/dL Coronavirus (PCR) Positive A (Negative) Medications & Allergies - Medications Allergies/Adverse Reactions: Allergies No Known Allergies Allergy (Verified 04/13/21 22:40) Active Medications: Generic Name Dose Route Start Last Admin Trade Name Freq PRN Reason Stop Dose Admin Acetaminophen 650 mg 04/14/21 04:31 Acetaminophen 325 Mg Tab PO Q4H PRN Pain MILD(1-3)/Fever >100.5/SHER Albuterol 2.5 mg 04/14/21 04:31 Albuterol 2.5 Mg/3 Ml Nebu IH Q4HRT PRN Shortness Of Breath Albuterol/Ipratropium 1 ampul 04/14/21 08:00 04/15/21 02:31 Ipratropium/Albuterol Sulfate 3 Ml Ampul.Neb IH 1 ampul Q6HRT [facility] Administration Ascorbic Acid 500 mg 04/14/21 10:00 04/14/21 23:34 Ascorbic Acid 500 Mg Tab PO 500 mg BID [facility] Administration Cholecalciferol 5,000 unit 04/14/21 10:00 Cholecalciferol (Vit D3) 5,000 Unit Tab PO DAILY [facility] Dexamethasone 6 mg 04/14/21 10:00 04/14/21 10:58 Dexamethasone 4 Mg/Ml Vial IV 6 mg DAILY [facility] Administration Famotidine 10 mg 04/14/21 10:00 04/14/21 23:33 Famotidine 10 Mg Tab PO 10 mg BID [facility] Administration Heparin Sodium (Porcine) 5,000 unit 04/14/21 06:00 04/14/21 23:32 Heparin 5,000 Unit/1 Ml Vial SUB-Q Not Given Q8HR [facility] Hydralazine HCl 10 mg 04/14/21 04:34 Hydralazine 20 Mg/1 Ml Inj IV Q6H PRN Blood Pressure Ceftriaxone Sodium 2 gm in 100 mls @ 200 mls/hr 04/14/21 05:00 04/14/21 04:56 Rocephin/Ns 2 Gm/100 Ml IV 200 mls/hr Q24H [facility] Administration Protocol Azithromycin 500 mg in 250 mls @ 250 mls/hr 04/14/21 05:00 04/14/21 07:35 Zithromax/Ns IV Infused Q24H [facility] Infusion Protocol Morphine Sulfate 2 mg 04/14/21 04:31 Morphine 2 Mg/1 Ml Inj IV Q4H PRN Pain, Moderate (4-6) Ondansetron HCl 4 mg 04/14/21 04:31 Ondansetron 4 Mg/2 Ml Inj IV Q8H PRN Nausea And Vomiting Sodium Chloride 10 ml 04/14/21 10:00 04/14/21 23:34 Sodium Chloride 0.9% 10 Ml Flush Syringe IV 10 ml BID [facility] Administration Sodium Chloride 10 ml 04/14/21 04:31 Sodium Chloride 0.9% 10 Ml Flush Syringe IV PRN PRN LINE FLUSH Zinc Sulfate 220 mg 04/14/21 10:00 04/14/21 23:34 Zinc Sulfate 220 Mg Cap PO 220 mg BID [facility] Administration HEART Score - HEART Score Troponin: Troponin T < 0.010 ng/mL (0.00-0.029) 04/13/21 23:02
[2021-04-15] MEDS: cefTRIAXone/NS 2 GM/100 ML 2 GM/100 ML BAG IV SCH ×2 (05:18→05:45)
[2021-04-15] MEDS: HEPARIN 5,000 UNIT/1 ML VIAL SUB-Q SCH ×3 (05:19→22:15)
[2021-04-15] MEDS: AZITHROMYCIN/NS 500 MG/250 ML 500 MG/250 ML BAG IV SCH ×2 (05:19→05:45)
[2021-04-15 07:56] LABS: Basophils # (Auto) 0.1 K/mm3 (0.0-0.1); Basophils % (Auto) 0.8 % (0.0-1.8); Hemoglobin 14.2 gm/dl (11.8-15.2); Lymphocytes # (Auto) 0.9 K/mm3 (1.2-5.4); Lymphocytes % (Auto) 6.8 % (13.4-35.0); Monocytes # (Auto) 0.6 K/mm3 (0.0-0.8); Monocytes % (Auto) 4.2 % (0.0-7.3)
[2021-04-15 08:11] LABS: Alanine Aminotransferase 37 units/L (7-56); Albumin 3.8 g/dL (3.9-5); BUN/Creatinine Ratio 12; Blood Urea Nitrogen 15 mg/dL (9-20); Calcium 9.5 mg/dL (8.4-10.2); Hemolysis Index 3
[2021-04-15 08:27] LABS: Hematocrit 44.6 % (35.5-45.6); Mean Corpuscular HGB Conc 32 % (32-34); Mean Corpuscular Volume 82 fl (84-94); Red Blood Count 5.44 M/mm3 (3.65-5.03); Red Cell Distribution Width 15.3 % (13.2-15.2)
[2021-04-15 08:33] LABS: Platelet Count 267 K/mm3 (140-440)
[2021-04-15] MEDS ORDERED: REMDESIVIR 200 MG in SODIUM CHLORIDE 0.9% 250ML 250 ML IV ONE (08:48)
--- NOTE | 2021-04-15 09:37 | Electrocardiograph Report ---
[facility] Test Date: 2021-04-14 Test Time: 00:16:45 Pat Name: HUI MOSLEY Department: Room: A351 Gender: M [employer] Relationship Manager: KALI : 1990 Requested By: MUNIRA JACKSON III Order Number: [id number] Reading MD: Harmeet Jalloh Measurements Intervals Kyle Rate: 91 P: 38 PA: 152 QRS: 58 QRSD: 88 T: 8 QT: 365 QTc: 449 Interpretive Statements Sinus rhythm No previous ECG available for comparison Electronically Signed On 04-15-2021 9:37:09 EST by Harmeet Jalloh
[2021-04-15] MEDS ORDERED: SODIUM CHLORIDE IV SCH (10:00)
[2021-04-15] MEDS: FAMOTIDINE 10 MG TAB PO SCH ×2 (10:59→22:14)
[2021-04-15] MEDS: CHOLECALCIFEROL (VIT D3) 5,000 UNIT TAB PO SCH ×2 (10:59→11:08)
[2021-04-15] MEDS: methylPREDNISolone Sod Succinate 40 MG/1 ML INJ IV SCH ×3 (10:59→22:14)
[2021-04-15] MEDS: ZINC SULFATE 220 MG CAP PO SCH ×2 (11:00→22:14)
[2021-04-15] MEDS: ASCORBIC ACID 500 MG TAB PO SCH ×2 (11:00→22:15)
[2021-04-15] MEDS ORDERED: SODIUM CHLORIDE 0.9% 1000 ML 1,000 ML ONE (11:13)
[2021-04-15] MEDS: ACETAMINOPHEN 325 MG TAB PO PRN (18:10)
[2021-04-15] MEDS ORDERED: ZOLPIDEM 5 MG TAB PO PRN (18:24)
--- NOTE | 2021-04-15 18:29 | Progress Note ---
Assessment and Plan Assessment and plan: 31-year-old male with history of asthma was brought to the hospital for progressive shortness of breath and fever for the last 2 days. Patient states symptoms are worsening. Patient states his symptoms are so bad he had to call EMS to come to the hospital. Patient states he is not vaccinated against COVID- 19. Patient states that his entire family has Covid at this time. Patient states he has not been tested. Patient states he has multiple sick contacts with your family members with COVID-19. While patient was in the care of EMS and waiting to be assigned a room, EMS took the patient to the bathroom and when the patient went to the standing position he had a syncopal episode. Syncopal episode was witnessed by EMS. EMS states the caught him and helped him to the floor. EMS states the patient did not hit his head. Patient syncopal episode and loss of consciousness was per brief few seconds. After syncopal episode, the patient was answering questions appropriately. Patient was able to stand up and ambulate to the stretcher with assistance. Patient was then placed on an ER stretcher and transferred to room 20. Report received from EMS. EMS states the patient hypoxic and placed on 2 L of oxygen. Patient was also given albuterol for wheezing. Patient ox improved with albuterol. In the emergency room patient is found to have Covid pneumonia and respiratory failure. (1) Acute hypoxic respiratory failure Current Visit: Yes Status: Acute Plan to address problem: Patient is anxious and keeping O2 only intermittently, if he does use Ventimask. Currently O2 increased to 8 L, RT reporting saturating well. Decadron changed to Solu-Medrol. May have mild asthma exacerbation but no overt wheezing. (2) COVID-19 pneumonia Current Visit: Yes Status: Acute Plan to address problem: Oxygen via nasal catheter per minute. DuoNeb by nebulizer every 4 hours. Albuterol 2.5 mg by nebulizer every 4 hours as needed. Dexamethasone 6 mg IV daily. Rocephin 2 g IV daily. Zithromax 500 mg IV daily. We will do the blood cultures sputum culture . Will consult infectious disease as well as pulmonary for evaluation. Follow Covid inflammatory marker Tested positive for COVID-19 by PCR test. Continue isolation as per protocol, supplemental vitamins, supportive measures, incentive spirometry as tolerated, Decadron changed to Solu-Medrol and started remdesivir. Empiric antibiotic th erapy with Rocephin and azithromycin since procalcitonin elevated. Initial WBC 7.3 and afebrile. Subsequent WBC 13.5 likely related to steroid use. Continue supplemental oxygen and wean as tolerated. Pulmonary consulted. (3) D-dimer 440 CTA negative for PE but did show bilateral pneumonia. (4) acute renal insufficiency, OPHELIA, resolving Current Visit: Yes Status: Acute Qualifiers: Acute renal failure type: unspecified Qualified Code(s): N17.9 - Acute kidney failure, unspecified Plan to address problem: Creatinine 2.1 with unknown baseline. Hydrating with half-normal saline at the rate of 100 cc/h. Creatinine today 1.3. Avoid nephrotoxic drug. Renally dose medication. Recheck BMP in the morning (5) Bronchial asthma No significant exacerbation ProAir 2 puffs 4 times daily, steroid inhalers not available. On Solu-Medrol (6) syncopal episode in ED bathroom Current Visit: Yes Status: Acute Qualifiers: Syncope type: unspecified Qualified Code(s): R55 - Syncope and collapse Plan to address problem: Likely vasovagal after walking to bathroom to ED from dehydration, hypoxia and exertional pulmonary decompensation clear conjugated Hydrating with half-normal saline at the rate of 100 cc/h. He is mentating well currently. We will monitor the patient closely. (7) anxiety/insomnia Ordered Sirisha (8) morbid obesity At higher risk for poor outcomes DVT prophylaxis Current Visit: Yes Status: Acute Plan to address problem: Heparin 5000 units subcu every 8 hours. Pepcid 20 mg p.o. twice daily for GI prophylaxis. Patient is a full code Discussed with the patient, nursing staff and RT in detail. History Interval history: Patient remains very anxious and not keeping supplemental oxygen. He prefers using Ventimask but uses only intermittently. Supplemental O2 increased to 8 L, is saturating well. He continues to have dry cough but no significant wheezes. He is anorexic and has diarrhea. Patient reports dyspnea on exertion. Afebrile with stable BP. Patient is complaining of lack of sleep since 2 nights and wants a sleep aid. Hospitalist Physical - Constitutional Vitals: Temp Pulse Resp BP Pulse Ox 98.8 F 113 H 24 97/70 100 04/15/21 11:27 04/15/21 11:27 04/15/21 11:27 04/15/21 11:27 04/15/21 16:56 General appearance: Present: mild distress, obese (Morbid obesity BMI 44) - EENT Eyes: Present: PERRL, EOM intact ENT: clear oral mucosa - Neck Neck: Present: supple - Respiratory Respiratory effort: other (Anxious, mild respiratory distress but no significant increase in activity of accessory muscles.) Respiratory: bilateral: wheezing (Coarse breath sounds bilaterally but no significant wheezes or rales.) - Cardiovascular Rhythm: regular - Extremities Extremities: No edema - Abdominal General gastrointestinal: soft, non-tender, normal bowel sounds, other (Obese) - Integumentary Integumentary: Absent: rash - Psychiatric Psychiatric: other (Anxious) - Neurologic Neurologic: no focal deficits, moves all extremities HEART Score - HEART Score Troponin: Troponin T < 0.010 ng/mL (0.00-0.029) 04/13/21 23:02 Results - Labs CBC & Chem 7: 04/15/21 07:38 04/15/21 07:38 Labs: Laboratory Last Values WBC 13.5 K/mm3 (4.5-11.0) H 04/15/21 07:38 RBC 5.44 M/mm3 (3.65-5.03) H 04/15/21 07:38 Hgb 14.2 gm/dl (11.8-15.2) 04/15/21 07:38 Hct 44.6 % (35.5-45.6) 04/15/21 07:38 MCV 82 fl (84-94) L 04/15/21 07:38 MCH 26 pg (28-32) L 04/15/21 07:38 MCHC 32 % (32-34) 04/15/21 07:38 RDW 15.3 % (13.2-15.2) H 04/15/21 07:38 Plt Count 267 K/mm3 (140-440) 04/15/21 07:38 Lymph % (Auto) 6.8 % (13.4-35.0) L 04/15/21 07:38 [place] % (Auto) 4.2 % (0.0-7.3) 04/15/21 07:38 Eos % (Auto) 0.0 % (0.0-4.3) 04/15/21 07:38 Baso % (Auto) 0.8 % (0.0-1.8) 04/15/21 07:38 Lymph # (Auto) 0.9 K/mm3 (1.2-5.4) L 04/15/21 07:38 [place] # (Auto) 0.6 K/mm3 (0.0-0.8) 04/15/21 07:38 Eos # (Auto) 0.0 K/mm3 (0.0-0.4) 04/15/21 07:38 Baso # (Auto) 0.1 K/mm3 (0.0-0.1) 04/15/21 07:38 Seg Neutrophils % 88.2 % (40.0-70.0) H 04/15/21 07:38 Seg Neutrophils # 11.9 K/mm3 (1.8-7.7) H 04/15/21 07:38 D-Dimer 440.91 ng/mlDDU (0-234) H 04/13/21 23:02 Sodium 143 mmol/L (137-145) 04/15/21 07:38 Potassium 4.0 mmol/L (3.6-5.0) 04/15/21 07:38 Chloride 105.2 mmol/L (98-107) 04/15/21 07:38 Carbon Dioxide 20 mmol/L (22-30) L 04/15/21 07:38 Anion Gap 22 mmol/L 04/15/21 07:38 BUN 15 mg/dL (9-20) 04/15/21 07:38 Creatinine 1.3 mg/dL (0.8-1.3) 04/15/21 07:38 Estimated GFR > 60 ml/min 04/15/21 07:38 BUN/Creatinine Ratio 12 % 04/15/21 07:38 Glucose 137 mg/dL (75-100) H 04/15/21 07:38 Lactic Acid 0.80 mmol/L (0.7-2.0) 04/14/21 04:24 Calcium 9.5 mg/dL (8.4-10.2) 04/15/21 07:38 Ferritin 519.6 ng/mL (30.0-300.0) H 04/13/21 23:02 Total Bilirubin 0.50 mg/dL (0.1-1.2) 04/15/21 07:38 AST 47 units/L (5-40) H 04/15/21 07:38 ALT 37 units/L (7-56) 04/15/21 07:38 Alkaline Phosphatase 80 units/L (35-129) 04/15/21 07:38 Lactate Dehydrogenase 439 units/L (91-180) H 04/13/21 23:02 Troponin T < 0.010 ng/mL (0.00-0.029) 04/13/21 23:02 C-Reactive Protein 0.90 mg/dL (0.00-1.30) 04/15/21 07:38 Total Protein 8.3 g/dL (6.3-8.2) H 04/15/21 07:38 Albumin 3.8 g/dL (3.9-5) L 04/15/21 07:38 Albumin/Globulin Ratio 0.8 % 04/15/21 07:38 Procalcitonin 7.48 ng/mL (<0.15) 04/13/21 23:02 Coronavirus (PCR) Positive (Negative) A 04/14/21 08:46 Microbiology: Microbiology 04/13/21 23:38 Peripheral/Venous Blood Culture - Preliminary NO GROWTH AFTER 24 HOURS 04/13/21 23:02 Peripheral/Venous Blood Culture - Preliminary NO GROWTH AFTER 24 HOURS Tse/IV: Voiding Method Toilet Active Medications - Current Medications Current Medications: Generic Name Dose Route Start Last Admin Trade Name Freq PRN Reason Stop Dose Admin Acetaminophen 650 mg 04/14/21 04:31 04/15/21 18:10 Acetaminophen 325 Mg Tab PO 650 mg Q4H PRN Administration Pain MILD(1-3)/Fever >100.5/SHER Albuterol 2 puff 04/15/21 20:00 Albuterol 8.5 Gm Mdi Inhalation IH QIDRT [facility] Ascorbic Acid 500 mg 04/14/21 10:00 04/15/21 11:00 Ascorbic Acid 500 Mg Tab PO 500 mg BID [facility] Administration Cholecalciferol 5,000 unit 04/14/21 10:00 04/15/21 11:08 Cholecalciferol (Vit D3) 5,000 Unit Tab PO 5,000 unit DAILY [facility] Administration Famotidine 10 mg 04/14/21 10:00 04/15/21 10:59 Famotidine 10 Mg Tab PO 10 mg BID [facility] Administration Heparin Sodium (Porcine) 5,000 unit 04/14/21 06:00 04/15/21 17:38 Heparin 5,000 Unit/1 Ml Vial SUB-Q Not Given Q8HR [facility] Hydralazine HCl 10 mg 04/14/21 04:34 Hydralazine 20 Mg/1 Ml Inj IV Q6H PRN Blood Pressure Ceftriaxone Sodium 2 gm in 100 mls @ 200 mls/hr 04/14/21 05:00 04/15/21 05:45 Rocephin/Ns 2 Gm/100 Ml IV Not Given Q24H [facility] Protocol Azithromycin 500 mg in 250 mls @ 250 mls/hr 04/14/21 05:00 04/15/21 05:45 Zithromax/Ns IV Not Given Q24H [facility] Protocol REMDESIVIR 100 mg/ Sodium 250 mls @ 500 mls/hr 04/16/21 21:00 Chloride IV 04/19/21 21:29 Q24HR@2100 [facility] Sodium Chloride 0 mls @ 200 mls/hr 04/15/21 10:00 Premix 50 Ml IV ONCE [facility] Sodium Chloride 0 mls @ 200 mls/hr 04/16/21 21:00 Premix 50 Ml IV 04/19/21 21:14 Q24H [facility] Lorazepam 1 mg 04/15/21 19:00 Lorazepam 1 Mg Tab PO BID [facility] Methylprednisolone Sodium Succinate 40 mg 04/15/21 09:00 04/15/21 18:09 Methylprednisolone Sod Succinate 40 Mg/1 Ml Inj IV 40 mg Q8HR [facility] Administration Ondansetron HCl 4 mg 04/14/21 04:31 Ondansetron 4 Mg/2 Ml Inj IV Q8H PRN Nausea And Vomiting Sodium Chloride 10 ml 04/14/21 10:00 04/15/21 11:00 Sodium Chloride 0.9% 10 Ml Flush Syringe IV 10 ml BID [facility] Administration Sodium Chloride 10 ml 04/14/21 04:31 Sodium Chloride 0.9% 10 Ml Flush Syringe IV PRN PRN LINE FLUSH Zinc Sulfate 220 mg 04/14/21 10:00 04/15/21 11:00 Zinc Sulfate 220 Mg Cap PO 220 mg BID [facility] Administration Zolpidem Tartrate 10 mg 04/15/21 18:24 Zolpidem 5 Mg Tab PO QHS PRN Sleep
[2021-04-15] MEDS: LORazepam 1 MG TAB PO SCH ×2 (19:27→22:31)
[2021-04-16] MEDS: ALBUTEROL 8.5 GM MDI INHALATION IH SCH ×2 (00:20→07:42)
[2021-04-16] MEDS: AZITHROMYCIN/NS 500 MG/250 ML 500 MG/250 ML BAG IV SCH (04:43)
[2021-04-16] MEDS: cefTRIAXone/NS 2 GM/100 ML 2 GM/100 ML BAG IV SCH (04:43)
[2021-04-16] MEDS: methylPREDNISolone Sod Succinate 40 MG/1 ML INJ IV SCH ×3 (06:10→22:31)
[2021-04-16] MEDS: HEPARIN 5,000 UNIT/1 ML VIAL SUB-Q SCH ×3 (06:10→22:31)
[2021-04-16] MEDS: ASCORBIC ACID 500 MG TAB PO SCH ×2 (09:46→22:31)
[2021-04-16] MEDS: FAMOTIDINE 10 MG TAB PO SCH ×2 (09:46→22:31)
[2021-04-16] MEDS: LORazepam 1 MG TAB PO SCH ×2 (09:46→22:35)
[2021-04-16] MEDS: CHOLECALCIFEROL (VIT D3) 5,000 UNIT TAB PO SCH (09:46)
[2021-04-16] MEDS: ZINC SULFATE 220 MG CAP PO SCH ×2 (09:47→22:31)
--- NOTE | 2021-04-16 10:04 | Consultation ---
History of Present Illness - Reason for Consult Consult date: 04/16/21 - History of Present Illness 31-year-old man past medical history asthma presented to hospital complaining of shortness of breath and fever which started 2 days prior to admission. His symptoms are worsening set, and he called EMS from the hospital. He is not vaccinated against Covid. Everyone else in his family currently has COVID, and he has not yet been tested. Patient has syncopal episode after EMS presented to his house. Low-grade temperature white count of 13.5. Covid positive. Normal renal function. Elevated procalcitonin. Blood cultures no growth so far. Currently on ceftriaxone and azithromycin. Requiring Venturi mask. Imaging personally reviewed: Chest CTA: No evidence of pulmonary embolism. Moderate multifocal pneumonia Review of systems: Deferred to reduce to the risk of transmission of COVID-19 Past History Past Medical History: other (Asthma) Past Surgical History: No surgical history Social history: no significant social history Family history: other (COVID) Medications and Allergies Allergies Allergy/AdvReac Type Severity Reaction Status Date / Time No Known Allergies Allergy Verified 04/13/21 22:40 Home Medications Medication Instructions Recorded Confirmed Last Taken Type No Known Home Medications [No 04/15/21 04/15/21 Unknown History Reported Home Medications] Active Meds: Active Medications Acetaminophen (Acetaminophen 325 Mg Tab) 650 mg PO Q4H PRN PRN Reason: Pain MILD(1-3)/Fever >100.5/SHER Last Admin: 04/15/21 18:10 Dose: 650 mg Documented by: Albuterol (Albuterol 8.5 Gm Mdi Inhalation) 2 puff IH QIDRT [facility] Last Admin: 04/16/21 07:42 Dose: Not Given Documented by: Ascorbic Acid (Ascorbic Acid 500 Mg Tab) 500 mg PO BID [facility] Last Admin: 04/16/21 09:46 Dose: 500 mg Documented by: Cholecalciferol (Cholecalciferol (Vit D3) 5,000 Unit Tab) 5,000 unit PO DAILY [facility] Last Admin: 04/16/21 09:46 Dose: 5,000 unit Documented by: Famotidine (Famotidine 10 Mg Tab) 10 mg PO BID [facility] Last Admin: 04/16/21 09:46 Dose: 10 mg Documented by: Heparin Sodium (Porcine) (Heparin 5,000 Unit/1 Ml Vial) 5,000 unit SUB-Q Q8HR [facility] Last Admin: 04/16/21 06:10 Dose: 5,000 unit Documented by: Hydralazine HCl (Hydralazine 20 Mg/1 Ml Inj) 10 mg IV Q6H PRN PRN Reason: Blood Pressure Ceftriaxone Sodium (Rocephin/Ns 2 Gm/100 Ml) 2 gm in 100 mls @ 200 mls/hr IV Q24H [facility]; Protocol Last Admin: 04/16/21 04:43 Dose: 200 mls/hr Documented by: Azithromycin (Zithromax/Ns) 500 mg in 250 mls @ 250 mls/hr IV Q24H [facility]; Pr otocol Last Admin: 04/16/21 04:43 Dose: 250 mls/hr Documented by: REMDESIVIR 100 mg/ Sodium (Chloride) 250 mls @ 500 mls/hr IV Q24HR@2100 [facility] Stop: 04/19/21 21:29 Sodium Chloride (Premix 50 Ml) 0 mls @ 200 mls/hr IV ONCE [facility] Sodium Chloride (Premix 50 Ml) 0 mls @ 200 mls/hr IV Q24H [facility] Stop: 04/19/21 21:14 Lorazepam (Lorazepam 1 Mg Tab) 1 mg PO BID [facility] Last Admin: 04/16/21 09:46 Dose: 1 mg Documented by: Methylprednisolone Sodium Succinate (Methylprednisolone Sod Succinate 40 Mg/1 Ml Inj) 40 mg IV Q8HR [facility] Last Admin: 04/16/21 06:10 Dose: 40 mg Documented by: Ondansetron HCl (Ondansetron 4 Mg/2 Ml Inj) 4 mg IV Q8H PRN PRN Reason: Nausea And Vomiting Sodium Chloride (Sodium Chloride 0.9% 10 Ml Flush Syringe) 10 ml IV BID [facility] Last Admin: 04/16/21 09:47 Dose: 10 ml Documented by: Sodium Chloride (Sodium Chloride 0.9% 10 Ml Flush Syringe) 10 ml IV PRN PRN PRN Reason: LINE FLUSH Zinc Sulfate (Zinc Sulfate 220 Mg Cap) 220 mg PO BID [facility] Last Admin: 04/16/21 09:47 Dose: 220 mg Documented by: Zolpidem Tartrate (Zolpidem 5 Mg Tab) 10 mg PO QHS PRN PRN Reason: Sleep Physical Examination - Physical Exam Narrative exam: Physical exam deferred to reduce risk of transmission of COVID-19. Please refer to primary team's note. - Constitutional Vitals: Vital Signs Temp Pulse Resp BP Pulse Ox 97.9 F 77 16 135/67 100 04/16/21 04:32 04/16/21 04:32 04/16/21 04:32 04/16/21 04:32 04/16/21 07:42 Temperature -Last 24 Hours Temperature 97.9 F Temperature 99.0 F Temperature 100.3 F Temperature 98.8 F Results - Labs CBC & Chem 7: 04/15/21 07:38 04/15/21 07:38 Assessment and Plan Cultures: Blood culture no growth so far A/P: 31 yo M PMHx asthma presented with: #Severe COVID-19 pneumonia: Patient presented with a week of symptoms, chest x- ray with diffuse bilateral infiltrates, admission O2 sats decreased on room air. Inflammatory markers elevated #Acute hypoxemic respiratory failure: Likely secondary to COVID-19 infection. Currently on venti-mask #morbid obesity: associated with worse covid outcomess Recommendations: -Dexamethasone 6 mg IV/PO daily for 10 days -Remdesivir 200 mg IV q day x 1 followed by 100 mg IV q day x 4 days -CRP too low for tocilizumab at present. -Obtain q48-72h inflammatory markers - ferritin, Ddimer, CRP, LDH -Continue ceftriaxone 2 gm IV qday and azithromycin 500 mg PO qday for 5 days given elevated procalcitonin -Anticoagulation per hospital protocol -Proning as able Thank you for the consult, we will continue to follow. Vin Ramon MD [facility] O: [phone] F: [phone]
[2021-04-16 10:24] LABS: Alanine Aminotransferase 42 units/L (7-56); Albumin 3.1 g/dL (3.9-5); BUN/Creatinine Ratio 16; Blood Urea Nitrogen 16 mg/dL (9-20); Calcium 8.7 mg/dL (8.4-10.2); Hemolysis Index 6
--- NOTE | 2021-04-16 18:05 | Progress Note ---
Assessment and Plan Assessment and plan: 31-year-old male with history of asthma was brought to the hospital for progressive shortness of breath and fever for the last 2 days. Patient states symptoms are worsening. Patient states his symptoms are so bad he had to call EMS to come to the hospital. Patient states he is not vaccinated against COVID- 19. Patient states that his entire family has Covid at this time. Patient states he has not been tested. Patient states he has multiple sick contacts with your family members with COVID-19. While patient was in the care of EMS and waiting to be assigned a room, EMS took the patient to the bathroom and when the patient went to the standing position he had a syncopal episode. Syncopal episode was witnessed by EMS. EMS states the caught him and helped him to the floor. EMS states the patient did not hit his head. Patient syncopal episode and loss of consciousness was per brief few seconds. After syncopal episode, the patient was answering questions appropriately. Patient was able to stand up and ambulate to the stretcher with assistance. Patient was then placed on an ER stretcher and transferred to room 20. Report received from EMS. EMS states the patient hypoxic and placed on 2 L of oxygen. Patient was also given albuterol for wheezing. Patient ox improved with albuterol. In the emergency room patient is found to have Covid pneumonia and respiratory failure. (1) Acute hypoxic respiratory failure Current Visit: Yes Status: Acute Plan to address problem: 04/15: Patient is anxious and keeping O2 only intermittently, Ventimask. Currently O2 increased to 8 L, RT reporting saturating well. Decadron changed to Solu-Medrol. May have mild asthma exacerbation but no overt wheezing. 04/16: Anxiety improved with Ativan. Able to keep his Ventimask in place. FiO2 0.35-0.50 currently. Saturating 98 200%. HR 70-80. RR 16-20. In moderate respiratory distress but no significant use of accessory muscles of respiration. Mentation is normal to stable. ABG 7.38, 38.6, 79, on FiO2 50%. Evaluated by ID today and felt not a candidate for Actemra since CRP low 2.5 and 0.9. We will continue to monitor closely for respiratory decompensation. (2) COVID-19 pneumonia Current Visit: Yes Status: Acute Plan to address problem: Oxygen via nasal catheter per minute. DuoNeb by nebulizer every 4 hours. Albuterol 2.5 mg by nebulizer every 4 hours as needed. Dexamethasone 6 mg IV daily. Rocephin 2 g IV daily. Zithromax 500 mg IV daily. We will do the blood cultures sputum culture . Will consult infectious disease as well as pulmonary for evaluation. Follow Covid inflammatory marker Tested positive for COVID-19 by PCR test. Continue isolation as per protocol, supplemental vitamins, supportive measures, incentive spirometry as tolerated, Decadron changed to Solu-Medrol and started remdesivir. Empiric antibiotic therapy with Rocephin and azithromycin since procalcitonin elevated. Initial WBC 7.3 and afebrile. Subsequent WBC 13.5 likely related to steroid use. Continue supplemental oxygen and wean as tolerated. Pulmonary and ID consulted. 04/16: Patient has a low-grade fever, 100.3. Blood cultures negative. On empiric azithromycin and Rocephin since procalcitonin elevated. ID following. (3) D-dimer 440 CTA negative for PE but did show bilateral pneumonia. (4) acute renal insufficiency, OPHELIA, resolving Current Visit: Yes Status: Acute Qualifiers: Acute renal failure type: unspecified Qualified Code(s): N17.9 - Acute kidney failure, unspecified Plan to address problem: Creatinine 2.1 with unknown baseline. Hydrating with half-normal saline at the rate of 100 cc/h. Creatinine today 1.3. Avoid nephrotoxic drug. Renally dose medication. Recheck BMP in the morning (5) Bronchial asthma No significant exacerbation ProAir 2 puffs 4 times daily, steroid inhalers not available in pharmacy. On Solu-Medrol (6) syncopal episode in ED bathroom Current Visit: Yes Status: Acute Qualifiers: Syncope type: unspecified Qualified Code(s): R55 - Syncope and collapse Plan to address problem: Likely vasovagal after walking to bathroom to ED from dehydration, hypoxia and exertional pulmonary decompensation clear conjugated Hydrating with half-normal saline at the rate of 100 cc/h. He is mentating well currently. We will monitor the patient closely. (7) anxiety/insomnia Ordered Atraven and Delien and patient reports significant relief (8) morbid obesity At higher risk for poor outcomes DVT prophylaxis Current Visit: Yes Status: Acute Plan to address problem: Heparin 5000 units subcu every 8 hours. Pepcid 20 mg p.o. twice daily for GI prophylaxis. Patient is a full code Discussed with the patient in detail and nursing staff. History Interval history: Patient remains on a Ventimask, currently FiO2 50%. Saturating 98-100%. Has low- grade fever today, 100.3, RR 16-20, HR 70-80. BP normal. He remains in mild to moderate respiratory distress but mentating well. Anxiety better with Ativan. Slept well with Ambien last night. Appetite remains poor but seems to improving. Hospitalist Physical - Constitutional Vitals: Temp Pulse Resp BP Pulse Ox 97.9 F 77 16 135/67 100 04/16/21 04:32 04/16/21 04:32 04/16/21 04:32 04/16/21 04:32 04/16/21 07:42 General appearance: Present: mild distress (Mild to moderate respiratory distress), obese (Morbid obesity BMI 44) - EENT Eyes: Present: EOM intact ENT: clear oral mucosa - Neck Neck: Present: supple - Respiratory Respiratory effort: labored (Mild to moderate respiratory distress, no signifi cant use of accessory muscles) Respiratory: bilateral: diminished, wheezing (Coarse breath sounds without significant wheezes) - Cardiovascular Rhythm: regular - Extremities Extremities: No edema - Abdominal General gastrointestinal: soft, non-tender, non-distended, normal bowel sounds, other (Obese) - Integumentary Integumentary: Absent: rash - Psychiatric Psychiatric: other (Anxiety improved with Ativan currently calm) - Neurologic Neurologic: no focal deficits, moves all extremities HEART Score - HEART Score Troponin: Troponin T < 0.010 ng/mL (0.00-0.029) 04/13/21 23:02 Results - Labs CBC & Chem 7: 04/15/21 07:38 04/16/21 09:32 Labs: Laboratory Last Values WBC 13.5 K/mm3 (4.5-11.0) H 04/15/21 07:38 RBC 5.44 M/mm3 (3.65-5.03) H 04/15/21 07:38 Hgb 14.2 gm/dl (11.8-15.2) 04/15/21 07:38 Hct 44.6 % (35.5-45.6) 04/15/21 07:38 MCV 82 fl (84-94) L 04/15/21 07:38 MCH 26 pg (28-32) L 04/15/21 07:38 MCHC 32 % (32-34) 04/15/21 07:38 RDW 15.3 % (13.2-15.2) H 04/15/21 07:38 Plt Count 267 K/mm3 (140-440) 04/15/21 07:38 Lymph % (Auto) 6.8 % (13.4-35.0) L 04/15/21 07:38 [place] % (Auto) 4.2 % (0.0-7.3) 04/15/21 07:38 Eos % (Auto) 0.0 % (0.0-4.3) 04/15/21 07:38 Baso % (Auto) 0.8 % (0.0-1.8) 04/15/21 07:38 Lymph # (Auto) 0.9 K/mm3 (1.2-5.4) L 04/15/21 07:38 [place] # (Auto) 0.6 K/mm3 (0.0-0.8) 04/15/21 07:38 Eos # (Auto) 0.0 K/mm3 (0.0-0.4) 04/15/21 07:38 Baso # (Auto) 0.1 K/mm3 (0.0-0.1) 04/15/21 07:38 Seg Neutrophils % 88.2 % (40.0-70.0) H 04/15/21 07:38 Seg Neutrophils # 11.9 K/mm3 (1.8-7.7) H 04/15/21 07:38 D-Dimer 440.91 ng/mlDDU (0-234) H 04/13/21 23:02 ABG pH 7.387 (7.320-7.450) 04/16/21 14:32 POC ABG pCO2 38.6 mmHg (32.0-48.0) 04/16/21 14:32 POC ABG pO2 79.1 mmHg (83-108) L 04/16/21 14:32 POC ABG HCO3 22.7 04/16/21 14:32 ABG O2 Saturation 95.9 (0-100) 04/16/21 14:32 POC ABG Base Excess -2.0 04/16/21 14:32 ABG Hemoglobin 13.8 (12.0-17.5) 04/16/21 14:32 ABG Oxyhemoglobin 95.5 (94-98) 04/16/21 14:32 ABG Methemoglobin 0.3 (0.0-1.5) 04/16/21 14:32 ABG Sodium 139.8 mmol/L (136.0-145.0) 04/16/21 14:32 ABG Potassium 4.2 mmol/L (3.40-4.50) 04/16/21 14:32 ABG Chloride 108.0 mmol/L (98-107) H 04/16/21 14:32 ABG Glucose 142 mg/dL (65-95) H 04/16/21 14:32 Carboxyhemoglobin 0.1 (0.5-1.5) L 04/16/21 14:32 FiO2 % 50.0 04/16/21 14:32 Sodium 144 mmol/L (137-145) 04/16/21 09:32 Potassium 5.0 mmol/L (3.6-5.0) D 04/16/21 09:32 Chloride 108.8 mmol/L (98-107) H 04/16/21 09:32 Carbon Dioxide 20 mmol/L (22-30) L 04/16/21 09:32 Anion Gap 20 mmol/L 04/16/21 09:32 BUN 16 mg/dL (9-20) 04/16/21 09:32 Creatinine 1.0 mg/dL (0.8-1.3) 04/16/21 09:32 Estimated GFR > 60 ml/min 04/16/21 09:32 BUN/Creatinine Ratio 16 % 04/16/21 09:32 Glucose 153 mg/dL (75-100) H 04/16/21 09:32 Lactic Acid 0.80 mmol/L (0.7-2.0) 04/14/21 04:24 Calcium 8.7 mg/dL (8.4-10.2) 04/16/21 09:32 Ferritin 519.6 ng/mL (30.0-300.0) H 04/13/21 23:02 Total Bilirubin 0.30 mg/dL (0.1-1.2) 04/16/21 09:32 AST 61 units/L (5-40) H 04/16/21 09:32 ALT 42 units/L (7-56) 04/16/21 09:32 Alkaline Phosphatase 65 units/L (35-129) 04/16/21 09:32 Lactate Dehydrogenase 439 units/L (91-180) H 04/13/21 23:02 Troponin T < 0.010 ng/mL (0.00-0.029) 04/13/21 23:02 C-Reactive Protein 0.90 mg/dL (0.00-1.30) 04/15/21 07:38 Total Protein 6.2 g/dL (6.3-8.2) L D 04/16/21 09:32 Albumin 3.1 g/dL (3.9-5) L 04/16/21 09:32 Albumin/Globulin Ratio 1.0 % 04/16/21 09:32 Procalcitonin 7.48 ng/mL (<0.15) 04/13/21 23:02 Arterial Blood Glucose 142 mg/dL (65-95) H 04/16/21 14:32 Arterial Blood Ionized Calcium 5.1 mg/dL (4.6-5.3) 04/16/21 14:32 Coronavirus (PCR) Positive (Negative) A 04/14/21 08:46 Microbiology: Microbiology 04/13/21 23:38 Peripheral/Venous Blood Culture - Preliminary NO GROWTH AFTER 48 HOURS 04/13/21 23:02 Peripheral/Venous Blood Culture - Preliminary NO GROWTH AFTER 48 HOURS Tse/IV: Voiding Method Urinal Active Medications - Current Medications Current Medications: Generic Name Dose Route Start Last Admin Trade Name Freq PRN Reason Stop Dose Admin Acetaminophen 650 mg 04/14/21 04:31 04/15/21 18:10 Acetaminophen 325 Mg Tab PO 650 mg Q4H PRN Administration Pain MILD(1-3)/Fever >100.5/SHER Albuterol 2 puff 04/16/21 10:09 Albuterol 8.5 Gm Mdi Inhalation IH Q4H PRN Wheezing Ascorbic Acid 500 mg 04/14/21 10:00 04/16/21 09:46 Ascorbic Acid 500 Mg Tab PO 500 mg BID [facility] Administration Cholecalciferol 5,000 unit 04/14/21 10:00 04/16/21 09:46 Cholecalciferol (Vit D3) 5,000 Unit Tab PO 5,000 unit DAILY [facility] Administration Enoxaparin Sodium 40 mg 04/16/21 22:00 Enoxaparin 60 Mg/0.6 Ml Inj SUB-Q BID [facility] Protocol Famotidine 10 mg 04/14/21 10:00 04/16/21 09:46 Famotidine 10 Mg Tab PO 10 mg BID [facility] Administration Heparin Sodium (Porcine) 5,000 unit 04/14/21 06:00 04/16/21 06:10 Heparin 5,000 Unit/1 Ml Vial SUB-Q 5,000 unit Q8HR [facility] Administration Hydralazine HCl 10 mg 04/14/21 04:34 Hydralazine 20 Mg/1 Ml Inj IV Q6H PRN Blood Pressure Ceftriaxone Sodium 2 gm in 100 mls @ 200 mls/hr 04/14/21 05:00 04/16/21 04:43 Rocephin/Ns 2 Gm/100 Ml IV 200 mls/hr Q24H [facility] Administration Protocol Azithromycin 500 mg in 250 mls @ 250 mls/hr 04/14/21 05:00 04/16/21 04:43 Zithromax/Ns IV 250 mls/hr Q24H [facility] Administration Protocol REMDESIVIR 100 mg/ Sodium 250 mls @ 500 mls/hr 04/16/21 21:00 Chloride IV 04/19/21 21:29 Q24HR@2100 [facility] Sodium Chloride 0 mls @ 200 mls/hr 04/15/21 10:00 Premix 50 Ml IV ONCE [facility] Sodium Chloride 0 mls @ 200 mls/hr 04/16/21 21:00 Premix 50 Ml IV 04/19/21 21:14 Q24H [facility] Lorazepam 1 mg 04/15/21 19:00 04/16/21 09:46 Lorazepam 1 Mg Tab PO 1 mg BID [facility] Administration Methylprednisolone Sodium Succinate 40 mg 04/15/21 09:00 04/16/21 06:10 Methylprednisolone Sod Succinate 40 Mg/1 Ml Inj IV 40 mg Q8HR [facility] Administration Ondansetron HCl 4 mg 04/14/21 04:31 Ondansetron 4 Mg/2 Ml Inj IV Q8H PRN Nausea And Vomiting Sodium Chloride 10 ml 04/14/21 10:00 04/16/21 09:47 Sodium Chloride 0.9% 10 Ml Flush Syringe IV 10 ml BID [facility] Administration Sodium Chloride 10 ml 04/14/21 04:31 Sodium Chloride 0.9% 10 Ml Flush Syringe IV PRN PRN LINE FLUSH Zinc Sulfate 220 mg 04/14/21 10:00 04/16/21 09:47 Zinc Sulfate 220 Mg Cap PO 220 mg BID [facility] Administration Zolpidem Tartrate 10 mg 04/15/21 18:24 Zolpidem 5 Mg Tab PO QHS PRN Sleep
[2021-04-16] MEDS ORDERED: SODIUM CHLORIDE IV SCH (21:00)
[2021-04-16] MEDS ORDERED: ENOXAPARIN 60 MG/0.6 ML INJ SUB-Q SCH (22:00)
[2021-04-17] MEDS: REMDESIVIR 100 MG in SODIUM CHLORIDE 0.9% 250ML 250 ML IV SCH ×3 (02:28→22:01)
[2021-04-17] MEDS: SODIUM CHLORIDE 0.9% 50 ML IVPB IV SCH ×2 (02:28→22:02)
[2021-04-17] MEDS: AZITHROMYCIN/NS 500 MG/250 ML 500 MG/250 ML BAG IV SCH (05:47)
[2021-04-17] MEDS: cefTRIAXone/NS 2 GM/100 ML 2 GM/100 ML BAG IV SCH (05:48)
[2021-04-17 06:19] LABS: Mean Corpuscular HGB Conc 31 % (32-34); Mean Corpuscular Volume 81 fl (84-94); Platelet Count 345 K/mm3 (140-440); Red Blood Count 5.55 M/mm3 (3.65-5.03); Red Cell Distribution Width 15.1 % (13.2-15.2)
[2021-04-17] MEDS: methylPREDNISolone Sod Succinate 40 MG/1 ML INJ IV SCH ×3 (06:20→21:20)
[2021-04-17 06:31] LABS: Hemoglobin 13.9 gm/dl (11.8-15.2)
[2021-04-17 06:40] LABS: Alanine Aminotransferase 38 units/L (7-56); Albumin 2.8 g/dL (3.9-5); BUN/Creatinine Ratio 16; Blood Urea Nitrogen 18 mg/dL (9-20); Calcium 9.3 mg/dL (8.4-10.2); Hemolysis Index 23
[2021-04-17] MEDS: ALBUTEROL 8.5 GM MDI INHALATION IH PRN (09:50)
[2021-04-17] MEDS: CHOLECALCIFEROL (VIT D3) 5,000 UNIT TAB PO SCH (09:52)
[2021-04-17] MEDS: ZINC SULFATE 220 MG CAP PO SCH ×2 (09:52→21:20)
[2021-04-17] MEDS: FAMOTIDINE 20 MG TAB PO SCH ×2 (09:53→21:20)
[2021-04-17] MEDS: LORazepam 1 MG TAB PO SCH ×2 (09:53→21:20)
[2021-04-17] MEDS: ENOXAPARIN 40 MG/0.4 ML INJ SUB-Q SCH ×2 (09:53→21:20)
[2021-04-17] MEDS: ASCORBIC ACID 500 MG TAB PO SCH ×2 (09:53→21:20)
[2021-04-17 11:01] LABS: Total Cells Counted 100
[2021-04-17 11:02] LABS: Hypochromasia Few; Myelocytes # (Manual) 0.1 K/mm3; Platelet Clumps Rare; Platelet Estimate Consistent w Auto
--- NOTE | 2021-04-17 11:22 | Progress Note ---
Assessment and Plan 31 y/o male with acute respiratory failure secondary to COVID pneumonia. 04/17/21: Please document if patient is proning or refusing to do so. COntinue IV steroids with solumedrol. Wean FiO2 for sats >88%. May consider some lasix therapy tomorrow. Not a candidate for Actemra 1. Suggest increasing steroids to either BID dosing on Dex or Solumedrol 40q8 2. Prone as tolerated during the day and sleep prone at night 3. Should be a candidate for Remdesivir. Not sure about actemra. From what I can find out, his oxygen was only increased for dyspnea not for desaturation so not sure if this qualifies him. 4. Suggest fluid restriction 5. Guarded prognosis given diagnosis and obesity. Subjective Date of service: 04/17/21 Interval history: Still on venti mask. Good sats. IMS ordered an ABG yesterday, not sure why. No documentation of proning. Objective Vital Signs - 12hr 04/17/21 04/17/21 04:14 09:50 Temperature 98.7 F Pulse Rate 84 Pulse Rate [ 123 H Anterior Bilateral Throughout] Respiratory 20 Rate Respiratory 18 Rate [Anterior Bilateral Throughout] Blood Pressure 127/86 O2 Sat by Pulse 99 97 Oximetry CBC and BMP: 04/17/21 04:27 04/17/21 04:27 ABG, PT/INR, D-dimer: ABG ABG pH 7.387 (7.320-7.450) 04/16/21 14:32 POC ABG pCO2 38.6 mmHg (32.0-48.0) 04/16/21 14:32 POC ABG pO2 79.1 mmHg (83-108) L 04/16/21 14:32 POC ABG HCO3 22.7 04/16/21 14:32 ABG O2 Saturation 95.9 (0-100) 04/16/21 14:32 PT/INR, D-dimer D-Dimer 339.80 ng/mlDDU (0-234) H 04/17/21 04:27 Abnormal lab findings: Abnormal Labs 04/13/21 04/13/21 04/13/21 23:02 23:02 23:02 WBC RBC 5.09 H MCV 81 L MCH 26 L MCHC RDW Lymph % (Auto) Lymph # (Auto) 1.0 L Seg Neutrophils % 79.5 H Seg Neuts % (Manual) Seg Neutrophils # Seg Neutrophils # Man Lymphocytes # (Manual) D-Dimer 440.91 H POC ABG pO2 ABG Chloride ABG Glucose Carboxyhemoglobin Chloride Carbon Dioxide Creatinine 2.1 H Glucose 123 H Ferritin AST 48 H Lactate Dehydrogenase C-Reactive Protein Total Protein Albumin 3.4 L Arterial Blood Glucose Coronavirus (PCR) 04/13/21 04/13/21 04/14/21 23:02 23:02 08:46 WBC RBC MCV MCH MCHC RDW Lymph % (Auto) Lymph # (Auto) Seg Neutrophils % Seg Neuts % (Manual) Seg Neutrophils # Seg Neutrophils # Man Lymphocytes # (Manual) D-Dimer POC ABG pO2 ABG Chloride ABG Glucose Carboxyhemoglobin Chloride Carbon Dioxide Creatinine Glucose 124 H Ferritin 519.6 H AST Lactate Dehydrogenase 439 H C-Reactive Protein 2.50 H Total Protein Albumin Arterial Blood Glucose Coronavirus (PCR) Positive A 04/15/21 04/15/21 04/16/21 07:38 07:38 09:32 WBC 13.5 H RBC 5.44 H MCV 82 L MCH 26 L MCHC RDW 15.3 H Lymph % (Auto) 6.8 L Lymph # (Auto) 0.9 L Seg Neutrophils % 88.2 H Seg Neuts % (Manual) Seg Neutrophils # 11.9 H Seg Neutrophils # Man Lymphocytes # (Manual) D-Dimer POC ABG pO2 ABG Chloride ABG Glucose Carboxyhemoglobin Chloride 108.8 H Carbon Dioxide 20 L 20 L Creatinine Glucose 137 H 153 H Ferritin AST 47 H 61 H Lactate Dehydrogenase C-Reactive Protein Total Protein 8.3 H 6.2 L D Albumin 3.8 L 3.1 L Arterial Blood Glucose Coronavirus (PCR) 04/16/21 04/17/21 04/17/21 14:32 04:27 04:27 WBC 14.0 H RBC 5.55 H MCV 81 L MCH 25 L MCHC 31 L RDW Lymph % (Auto) Lymph # (Auto) Seg Neutrophils % Seg Neuts % (Manual) 91.0 H Seg Neutrophils # Seg Neutrophils # Man 12.7 H Lymphocytes # (Manual) 0.0 L D-Dimer POC ABG pO2 79.1 L ABG Chloride 108.0 H ABG Glucose 142 H Carboxyhemoglobin 0.1 L Chloride 107.8 H Carbon Dioxide 20 L Creatinine Glucose 150 H Ferritin AST 47 H Lactate Dehydrogenase C-Reactive Protein Total Protein Albumin 2.8 L Arterial Blood Glucose 142 H Coronavirus (PCR) 04/17/21 04:27 WBC RBC MCV MCH MCHC RDW Lymph % (Auto) Lymph # (Auto) Seg Neutrophils % Seg Neuts % (Manual) Seg Neutrophils # Seg Neutrophils # Man Lymphocytes # (Manual) D-Dimer 339.80 H POC ABG pO2 ABG Chloride ABG Glucose Carboxyhemoglobin Chloride Carbon Dioxide Creatinine Glucose Ferritin AST Lactate Dehydrogenase C-Reactive Protein Total Protein Albumin Arterial Blood Glucose Coronavirus (PCR)
--- NOTE | 2021-04-17 12:23 | Progress Note ---
Assessment and Plan Cultures: Blood culture no growth so far A/P: 31 yo M PMHx asthma presented with: #Severe COVID-19 pneumonia: Patient presented with a week of symptoms, chest x- ray with diffuse bilateral infiltrates, admission O2 sats decreased on room air. Inflammatory markers elevated #Acute hypoxemic respiratory failure: Likely secondary to COVID-19 infection. Currently on venti-mask #Transaminitis: improving. Likely secondary to COVID. #morbid obesity: associated with worse covid outcomes Recommendations: -Dexamethasone 6 mg IV/PO daily for 10 days -Remdesivir 200 mg IV q day x 1 followed by 100 mg IV q day x 4 days -CRP too low for tocilizumab at present/now normal. -Obtain q48-72h inflammatory markers - ferritin, Ddimer, CRP, LDH -Continue ceftriaxone 2 gm IV qday and azithromycin 500 mg PO qday for 5 days given elevated procalcitonin -Anticoagulation per hospital protocol -Proning as able All labs reviewed. Thank you for the consult, we will continue to follow. Vin Ramon MD [facility] ([facility] O: [phone] F: [phone] Subjective Date of service: 04/17/21 Interval history: Afebrile overnight, white count 14. Currently requiring Venturi mask. Improving inflammatory markers. Objective - Exam Narrative Exam: Physical exam deferred to reduce risk of transmission of COVID-19. Please refer to primary team's note. - Constitutional Vitals: Vital Signs Temp Pulse Resp BP Pulse Ox 98.7 F 123 H 18 127/86 97 04/17/21 04:14 04/17/21 09:50 04/17/21 09:50 04/17/21 04:14 04/17/21 09:50 Temperature -Last 24 Hours Temperature 98.7 F Temperature 98.6 F Temperature 99.2 F - Labs CBC & Chem 7: 04/17/21 04:27 04/17/21 04:27 Labs: Abnormal lab results 04/16/21 04/17/21 04/17/21 Range/Units 14:32 04:27 04:27 WBC 14.0 H (4.5-11.0) K/mm3 RBC 5.55 H (3.65-5.03) M/mm3 MCV 81 L (84-94) fl MCH 25 L (28-32) pg MCHC 31 L (32-34) % Seg Neuts % (Manual) 91.0 H (40.0-70.0) % Seg Neutrophils # Man 12.7 H (1.8-7.7) K/mm3 Lymphocytes # (Manual) 0.0 L (1.2-5.4) K/mm3 D-Dimer (0-234) ng/mlDDU POC ABG pO2 79.1 L (83-108) mmHg ABG Chloride 108.0 H (98-107) mmol/L ABG Glucose 142 H (65-95) mg/dL Carboxyhemoglobin 0.1 L (0.5-1.5) Chloride 107.8 H (98-107) mmol/L Carbon Dioxide 20 L (22-30) mmol/L Glucose 150 H (75-100) mg/dL AST 47 H (5-40) units/L Albumin 2.8 L (3.9-5) g/dL Arterial Blood Glucose 142 H (65-95) mg/dL 04/17/21 Range/Units 04:27 WBC (4.5-11.0) K/mm3 RBC (3.65-5.03) M/mm3 MCV (84-94) fl MCH (28-32) pg MCHC (32-34) % Seg Neuts % (Manual) (40.0-70.0) % Seg Neutrophils # Man (1.8-7.7) K/mm3 Lymphocytes # (Manual) (1.2-5.4) K/mm3 D-Dimer 339.80 H (0-234) ng/mlDDU POC ABG pO2 (83-108) mmHg ABG Chloride (98-107) mmol/L ABG Glucose (65-95) mg/dL Carboxyhemoglobin (0.5-1.5) Chloride (98-107) mmol/L Carbon Dioxide (22-30) mmol/L Glucose (75-100) mg/dL AST (5-40) units/L Albumin (3.9-5) g/dL Arterial Blood Glucose (65-95) mg/dL
--- NOTE | 2021-04-17 15:35 | Progress Note ---
Assessment and Plan Brief history: 31-year-old male with history of asthma was brought to the hospital by EMS for progressive shortness of breath and fever for the last 2 days. Patient states he is not vaccinated against COVID-19. While patient was in the care of EMS and waiting to be assigned a room, EMS took the patient to the bathroom and when the patient went to the standing position he had a syncopal episode. EMS states the caught him and helped him to the floor and did not hit his head. EMS states the patient did not hit his head. In the emergency room patient is found to have Covid pneumonia and respiratory failure. Assessment and plan: -- Acute hypoxic respiratory failure Due to COVID-19 pneumonia, remains on Ventimask's Albuterol inhalers as needed, empiric steroid Continue to treat for COVID-19 pneumonia -- COVID-19 pneumonia Tested positive for COVID-19 by PCR test. Continue isolation as per protocol, supplemental vitamins, supportive measures, incentive spirometry as tolerated, Decadron changed to Solu-Medrol and started remdesivir. Empiric antibiotic therapy with Rocephin and azithromycin since procalcitonin elevated. Continue supplemental oxygen and wean as tolerated. Pulmonary and ID consulted. -- D-dimer 440 CTA negative for PE but did show bilateral pneumonia. -- acute renal insufficiency, OPHELIA, resolving presented with Creatinine 2.1 with unknown baseline. Hydrating with half-normal saline at the rate of 100 cc/h. Avoid nephrotoxic drug. Renally dose medication. follow BMP -- Bronchial asthma No significant exacerbation ProAir 2 puffs 4 times daily, steroid inhalers not available in pharmacy. On Solu-Medrol -- syncopal episode in ED bathroom Likely vasovagal after walking to bathroom to ED from dehydration, hypoxia and exertional pulmonary decompensation clear conjugated Hydrating with half-normal saline at the rate of 100 cc/h. He is mentating well currently. We will monitor the patient closely. -- anxiety/insomnia Ordered Josselyn and Codey and patient reports significant relief -- morbid obesity At higher risk for poor outcomes --DVT prophylaxis Heparin 5000 units subcu every 8 hours. Pepcid 20 mg p.o. twice daily for GI prophylaxis. Patient is a full code Discussed with the patient in detail and nursing staff. Daily clinical course: 04/15: Patient is anxious and keeping O2 only intermittently, Ventimask. Currently O2 increased to 8 L, RT reporting saturating well. Decadron changed to Solu-Medrol. May have mild asthma exacerbation but no overt wheezing. Oxygen via nasal catheter per minute. Albuterol 2.5 mg by nebulizer every 4 hours as needed. Dexamethasone 6 mg IV daily. Rocephin 2 g IV daily. Zithromax 500 mg IV daily. We will do the blood cultures sputum culture . Will consult infectious disease as well as pulmonary for evaluation. Follow Covid inflammatory marker 04/16: Anxiety improved with Ativan. Able to keep his Ventimask in place. FiO2 0.35-0.50 currently. Saturating 98 200%. HR 70-80. RR 16-20. In moderate respiratory distress but no significant use of accessory muscles of respiration. Mentation is normal to stable. ABG 7.38, 38.6, 79, on FiO2 50%. Evaluated by ID today and felt not a candidate for Actemra since CRP low 2.5 and 0.9. We will continue to monitor closely for respiratory decompensation. Patient has a low-grade fever, 100.3. Blood cultures negative. On empiric azithromycin and Rocephin since procalcitonin elevated. ID following. 04/17: Remains on 15 L Ventimask, ID and pulmonary following. Noted to have low- grade temp but clinically seems to be improving. Wean off O2 as tolerated Subjective Date of service: 04/17/21 Interval history: Patient remains on a Ventimask 15L, Saturating 98-100%. vitals noted, no acute o/n event Appetite seems to improving Objective - Exam Narrative Exam: Limited physical exam due to COVID-19 pandemic to minimize transmission of the disease and to preserve PPE. Vital reviewed and stable. GENERAL: well-developed well-nourished lying on bed appeared to be in no discomfort. HEENT: Normocephalic. Atraumatic. NECK: Supple. CHEST/LUNGS: breathing on ventimask. HEART/CARDIOVASCULAR: Heart rate stable on telemetry ABDOMEN: Visibly not distended SKIN: There is no rash NEURO: No focal motor deficit. Follows command. MUSCULOSKELETAL: No joint effusion EXTRIMITY: No swelling, no cyanosis or clubbing. PSYCH: Cooperative. - Constitutional Vitals: Vital Signs - 12hr 04/17/21 04/17/21 04:14 09:50 Temperature 98.7 F Pulse Rate 84 Pulse Rate [ 123 H Anterior Bilateral Throughout] Respiratory 20 Rate Respiratory 18 Rate [Anterior Bilateral Throughout] Blood Pressure 127/86 O2 Sat by Pulse 99 97 Oximetry - Labs CBC & Chem 7: 04/17/21 04:27 04/18/21 04:43 Labs: Abnormal lab results 04/17/21 04/17/21 04/17/21 Range/Units 04:27 04:27 04:27 WBC 14.0 H (4.5-11.0) K/mm3 RBC 5.55 H (3.65-5.03) M/mm3 MCV 81 L (84-94) fl MCH 25 L (28-32) pg MCHC 31 L (32-34) % Seg Neuts % (Manual) 91.0 H (40.0-70.0) % Seg Neutrophils # Man 12.7 H (1.8-7.7) K/mm3 Lymphocytes # (Manual) 0.0 L (1.2-5.4) K/mm3 D-Dimer 339.80 H (0-234) ng/mlDDU Chloride 107.8 H (98-107) mmol/L Carbon Dioxide 20 L (22-30) mmol/L Glucose 150 H (75-100) mg/dL AST 47 H (5-40) units/L Albumin 2.8 L (3.9-5) g/dL HEART Score - HEART Score Troponin: Troponin T < 0.010 ng/mL (0.00-0.029) 04/13/21 23:02
[2021-04-18] MEDS: methylPREDNISolone Sod Succinate 40 MG/1 ML INJ IV SCH ×3 (05:30→22:36)
[2021-04-18] MEDS: AZITHROMYCIN/NS 500 MG/250 ML 500 MG/250 ML BAG IV SCH (05:30)
[2021-04-18] MEDS: cefTRIAXone/NS 2 GM/100 ML 2 GM/100 ML BAG IV SCH (05:31)
[2021-04-18 06:41] LABS: Alanine Aminotransferase 37 units/L (7-56); Albumin 3.1 g/dL (3.9-5); BUN/Creatinine Ratio 20; Blood Urea Nitrogen 20 mg/dL (9-20); Calcium 9.2 mg/dL (8.4-10.2); Hemolysis Index 24
[2021-04-18] MEDS: ALBUTEROL 8.5 GM MDI INHALATION IH PRN (08:47)
[2021-04-18] MEDS: FAMOTIDINE 20 MG TAB PO SCH ×2 (09:55→22:36)
[2021-04-18] MEDS: ASCORBIC ACID 500 MG TAB PO SCH ×2 (09:55→22:36)
[2021-04-18] MEDS: ZINC SULFATE 220 MG CAP PO SCH ×2 (09:55→22:36)
[2021-04-18] MEDS: LORazepam 1 MG TAB PO SCH ×2 (09:55→22:36)
[2021-04-18] MEDS: CHOLECALCIFEROL (VIT D3) 5,000 UNIT TAB PO SCH (09:55)
[2021-04-18] MEDS: ENOXAPARIN 40 MG/0.4 ML INJ SUB-Q SCH ×2 (09:55→22:38)
--- NOTE | 2021-04-18 10:57 | Progress Note ---
Assessment and Plan Cultures: Blood culture no growth so far A/P: 31 yo M PMHx asthma presented with: #Severe COVID-19 pneumonia: Patient presented with a week of symptoms, chest x- ray with diffuse bilateral infiltrates, admission O2 sats decreased on room air. Inflammatory markers elevated #Acute hypoxemic respiratory failure: Likely secondary to COVID-19 infection. Currently on venti-mask #Transaminitis: improving. Likely secondary to COVID. #morbid obesity: associated with worse covid outcomes Recommendations: -Dexamethasone 6 mg IV/PO daily for 10 days -Remdesivir 200 mg IV q day x 1 followed by 100 mg IV q day x 4 days -CRP too low for tocilizumab at present/now normal. -Obtain q48-72h inflammatory markers - ferritin, Ddimer, CRP, LDH -Continue ceftriaxone 2 gm IV qday and azithromycin 500 mg PO qday for 5 days given elevated procalcitonin -Anticoagulation per hospital protocol -Proning as able All labs reviewed. Thank you for the consult, we will continue to follow. Vin Ramon MD [facility] ([facility] O: [phone] F: [phone] Subjective Date of service: 04/18/21 Interval history: Afebrile, white count remains elevated at 14. On Venturi mask, 15L. Objective - Exam Narrative Exam: Physical exam deferred to reduce risk of transmission of COVID-19. Please refer to primary team's note. - Constitutional Vitals: Vital Signs Temp Pulse Resp BP Pulse Ox 98.4 F 96 H 18 129/90 96 04/18/21 04:22 04/18/21 08:47 04/18/21 08:47 04/18/21 04:22 04/18/21 04:22 Temperature -Last 24 Hours Temperature 98.4 F Temperature 98.5 F Temperature 97.9 F - Labs CBC & Chem 7: 04/17/21 04:27 04/18/21 04:43 Labs: Abnormal lab results 04/17/21 04/18/21 04/18/21 Range/Units 04:27 04:42 04:43 Seg Neuts % (Manual) 91.0 H (40.0-70.0) % Seg Neutrophils # Man 12.7 H (1.8-7.7) K/mm3 Lymphocytes # (Manual) 0.0 L (1.2-5.4) K/mm3 Sodium 147 H (137-145) mmol/L Chloride 111.3 H (98-107) mmol/L Carbon Dioxide 21 L (22-30) mmol/L Glucose 151 H (75-100) mg/dL C-Reactive Protein 1.40 H (0.00-1.30) mg/dL Albumin 3.1 L (3.9-5) g/dL
--- NOTE | 2021-04-18 11:56 | Progress Note ---
Assessment and Plan 31 y/o male with acute respiratory failure secondary to COVID pneumonia. 04/18/21: will give 20 of lasix IV x1 today. Please check BMP in am. Continue with steroids. Will speak with nursing about proning order and proper documentation if patient is refusing. 04/17/21: Please document if patient is proning or refusing to do so. COntinue IV steroids with solumedrol. Wean FiO2 for sats >88%. May consider some lasix therapy tomorrow. Not a candidate for Actemra 1. Suggest increasing steroids to either BID dosing on Dex or Solumedrol 40q8 2. Prone as tolerated during the day and sleep prone at night 3. Should be a candidate for Remdesivir. Not sure about actemra. From what I can find out, his oxygen was only increased for dyspnea not for desaturation so not sure if this qualifies him. 4. Suggest fluid restriction 5. Guarded prognosis given diagnosis and obesity. Subjective Date of service: 04/18/21 Interval history: Still on venti with good sats. No documentation of proning. Objective Vital Signs - 12hr 04/18/21 04/18/21 04:22 08:47 Temperature 98.4 F Pulse Rate 95 H Pulse Rate [ 96 H Anterior Bilateral Throughout] Respiratory 18 Rate Respiratory 18 Rate [Anterior Bilateral Throughout] Blood Pressure 129/90 O2 Sat by Pulse 96 Oximetry CBC and BMP: 04/17/21 04:27 04/18/21 04:43 ABG, PT/INR, D-dimer: ABG ABG pH 7.387 (7.320-7.450) 04/16/21 14:32 POC ABG pCO2 38.6 mmHg (32.0-48.0) 04/16/21 14:32 POC ABG pO2 79.1 mmHg (83-108) L 04/16/21 14:32 POC ABG HCO3 22.7 04/16/21 14:32 ABG O2 Saturation 95.9 (0-100) 04/16/21 14:32 PT/INR, D-dimer D-Dimer 339.80 ng/mlDDU (0-234) H 04/17/21 04:27 Abnormal lab findings: Abnormal Labs 04/13/21 04/13/21 04/13/21 23:02 23:02 23:02 WBC RBC 5.09 H MCV 81 L MCH 26 L MCHC RDW Lymph % (Auto) Lymph # (Auto) 1.0 L Seg Neutrophils % 79.5 H Seg Neuts % (Manual) Seg Neutrophils # Seg Neutrophils # Man Lymphocytes # (Manual) D-Dimer 440.91 H POC ABG pO2 ABG Chloride ABG Glucose Carboxyhemoglobin Sodium Chloride Carbon Dioxide Creatinine 2.1 H Glucose 123 H Ferritin AST 48 H Lactate Dehydrogenase C-Reactive Protein Total Protein Albumin 3.4 L Arterial Blood Glucose Coronavirus (PCR) 04/13/21 04/13/21 04/14/21 23:02 23:02 08:46 WBC RBC MCV MCH MCHC RDW Lymph % (Auto) Lymph # (Auto) Seg Neutrophils % Seg Neuts % (Manual) Seg Neutrophils # Seg Neutrophils # Man Lymphocytes # (Manual) D-Dimer POC ABG pO2 ABG Chloride ABG Glucose Carboxyhemoglobin Sodium Chloride Carbon Dioxide Creatinine Glucose 124 H Ferritin 519.6 H AST Lactate Dehydrogenase 439 H C-Reactive Protein 2.50 H Total Protein Albumin Arterial Blood Glucose Coronavirus (PCR) Positive A 04/15/21 04/15/21 04/16/21 07:38 07:38 09:32 WBC 13.5 H RBC 5.44 H MCV 82 L MCH 26 L MCHC RDW 15.3 H Lymph % (Auto) 6.8 L Lymph # (Auto) 0.9 L Seg Neutrophils % 88.2 H Seg Neuts % (Manual) Seg Neutrophils # 11.9 H Seg Neutrophils # Man Lymphocytes # (Manual) D-Dimer POC ABG pO2 ABG Chloride ABG Glucose Carboxyhemoglobin Sodium Chloride 108.8 H Carbon Dioxide 20 L 20 L Creatinine Glucose 137 H 153 H Ferritin AST 47 H 61 H Lactate Dehydrogenase C-Reactive Protein Total Protein 8.3 H 6.2 L D Albumin 3.8 L 3.1 L Arterial Blood Glucose Coronavirus (PCR) 04/16/21 04/17/21 04/17/21 14:32 04:27 04:27 WBC 14.0 H RBC 5.55 H MCV 81 L MCH 25 L MCHC 31 L RDW Lymph % (Auto) Lymph # (Auto) Seg Neutrophils % Seg Neuts % (Manual) 91.0 H Seg Neutrophils # Seg Neutrophils # Man 12.7 H Lymphocytes # (Manual) 0.0 L D-Dimer POC ABG pO2 79.1 L ABG Chloride 108.0 H ABG Glucose 142 H Carboxyhemoglobin 0.1 L Sodium Chloride 107.8 H Carbon Dioxide 20 L Creatinine Glucose 150 H Ferritin AST 47 H Lactate Dehydrogenase C-Reactive Protein Total Protein Albumin 2.8 L Arterial Blood Glucose 142 H Coronavirus (PCR) 04/17/21 04/18/21 04/18/21 04:27 04:42 04:43 WBC RBC MCV MCH MCHC RDW Lymph % (Auto) Lymph # (Auto) Seg Neutrophils % Seg Neuts % (Manual) Seg Neutrophils # Seg Neutrophils # Man Lymphocytes # (Manual) D-Dimer 339.80 H POC ABG pO2 ABG Chloride ABG Glucose Carboxyhemoglobin Sodium 147 H Chloride 111.3 H Carbon Dioxide 21 L Creatinine Glucose 151 H Ferritin AST Lactate Dehydrogenase C-Reactive Protein 1.40 H Total Protein Albumin 3.1 L Arterial Blood Glucose Coronavirus (PCR)
[2021-04-18] MEDS ORDERED: FUROSEMIDE 20 MG/2 ML INJ IV NR (12:30)
--- NOTE | 2021-04-18 17:03 | Progress Note ---
Assessment and Plan Brief history: 31-year-old male with history of asthma was brought to the hospital by EMS for progressive shortness of breath and fever for the last 2 days. Patient states he is not vaccinated against COVID-19. While patient was in the care of EMS and waiting to be assigned a room, EMS took the patient to the bathroom and when the patient went to the standing position he had a syncopal episode. EMS states the caught him and helped him to the floor and did not hit his head. EMS states the patient did not hit his head. In the emergency room patient is found to have Covid pneumonia and respiratory failure. Assessment and plan: -- Acute hypoxic respiratory failure Due to COVID-19 pneumonia, remains on Ventimask's Albuterol inhalers as needed, empiric steroid Continue to treat for COVID-19 pneumonia -- COVID-19 pneumonia Tested positive for COVID-19 by PCR test. Continue isolation as per protocol, supplemental vitamins, supportive measures, incentive spirometry as tolerated, Decadron changed to Solu-Medrol and started remdesivir. Empiric antibiotic therapy with Rocephin and azithromycin since procalcitonin elevated. Continue supplemental oxygen and wean as tolerated. Pulmonary and ID consulted. -- D-dimer 440 CTA negative for PE but did show bilateral pneumonia. -- acute renal insufficiency, OPHELIA, resolving presented with Creatinine 2.1 with unknown baseline. Hydrating with half-normal saline at the rate of 100 cc/h. Avoid nephrotoxic drug. Renally dose medication. follow BMP -- Bronchial asthma No significant exacerbation ProAir 2 puffs 4 times daily, steroid inhalers not available in pharmacy. On Solu-Medrol -- syncopal episode in ED bathroom Likely vasovagal after walking to bathroom to ED from dehydration, hypoxia and exertional pulmonary decompensation clear conjugated Hydrating with half-normal saline at the rate of 100 cc/h. He is mentating well currently. We will monitor the patient closely. -- anxiety/insomnia Ordered Josselyn and Codey and patient reports significant relief -- morbid obesity At higher risk for poor outcomes --DVT prophylaxis Heparin 5000 units subcu every 8 hours. Pepcid 20 mg p.o. twice daily for GI prophylaxis. Patient is a full code Discussed with the patient in detail and nursing staff. Daily clinical course: 04/15: Patient is anxious and keeping O2 only intermittently, Ventimask. Currently O2 increased to 8 L, RT reporting saturating well. Decadron changed to Solu-Medrol. May have mild asthma exacerbation but no overt wheezing. Oxygen via nasal catheter per minute. Albuterol 2.5 mg by nebulizer every 4 hours as needed. Dexamethasone 6 mg IV daily. Rocephin 2 g IV daily. Zithromax 500 mg IV daily. We will do the blood cultures sputum culture . Will consult infectious disease as well as pulmonary for evaluation. Follow Covid inflammatory marker 04/16: Anxiety improved with Ativan. Able to keep his Ventimask in place. FiO2 0.35-0.50 currently. Saturating 98 200%. HR 70-80. RR 16-20. In moderate respiratory distress but no significant use of accessory muscles of respiration. Mentation is normal to stable. ABG 7.38, 38.6, 79, on FiO2 50%. Evaluated by ID today and felt not a candidate for Actemra since CRP low 2.5 and 0.9. We will continue to monitor closely for respiratory decompensation. Patient has a low-grade fever, 100.3. Blood cultures negative. On empiric azithromycin and Rocephin since procalcitonin elevated. ID following. 04/17: Remains on 15 L Ventimask, ID and pulmonary following. Noted to have low- grade temp but clinically seems to be improving. Wean off O2 as tolerated 04/18: cont solumedrol for 10 days and Remdesivir 200 mg IV q day x 1 followed by 100 mg IV q day x 4 days -CRP too low for tocilizumab at present/now normal. -Obtain q48-72h inflammatory markers - ferritin, Ddimer, CRP, LDH -Continue ceftriaxone 2 gm IV qday and azithromycin 500 mg PO qday for 5 days given elevated procalcitonin -remains on 15L venti mask Subjective Date of service: 04/18/21 Interval history: Patient remains on a Ventimask 15L, Saturating 98-100%. vitals noted, no acute o/n event Appetite seems to improving Objective - Exam Narrative Exam: Limited physical exam due to COVID-19 pandemic to minimize transmission of the disease and to preserve PPE. Vital reviewed and stable. GENERAL: well-developed well-nourished lying on bed appeared to be in no discomfort. HEENT: Normocephalic. Atraumatic. NECK: Supple. CHEST/LUNGS: breathing on ventimask. HEART/CARDIOVASCULAR: Heart rate stable on telemetry ABDOMEN: Visibly not distended SKIN: There is no rash NEURO: No focal motor deficit. Follows command. MUSCULOSKELETAL: No joint effusion EXTRIMITY: No swelling, no cyanosis or clubbing. PSYCH: Cooperative. - Constitutional Vitals: Vital Signs - 12hr 04/18/21 04/18/21 08:47 11:29 Temperature 97.9 F Pulse Rate 90 Pulse Rate [ 96 H Anterior Bilateral Throughout] Respiratory 18 Rate Respiratory 18 Rate [Anterior Bilateral Throughout] Blood Pressure 126/78 O2 Sat by Pulse 95 Oximetry - Labs CBC & Chem 7: 04/17/21 04:27 04/18/21 04:43 Labs: Abnormal lab results 04/18/21 04/18/21 Range/Units 04:42 04:43 Sodium 147 H (137-145) mmol/L Chloride 111.3 H (98-107) mmol/L Carbon Dioxide 21 L (22-30) mmol/L Glucose 151 H (75-100) mg/dL C-Reactive Protein 1.40 H (0.00-1.30) mg/dL Albumin 3.1 L (3.9-5) g/dL HEART Score - HEART Score Troponin: Troponin T < 0.010 ng/mL (0.00-0.029) 04/13/21 23:02
[2021-04-18] MEDS: REMDESIVIR 100 MG in SODIUM CHLORIDE 0.9% 250ML 250 ML IV SCH (21:06)
[2021-04-18] MEDS: SODIUM CHLORIDE 0.9% 50 ML IVPB IV SCH (22:38)
[2021-04-19] MEDS: methylPREDNISolone Sod Succinate 40 MG/1 ML INJ IV SCH ×3 (06:07→21:08)
[2021-04-19] MEDS: LORazepam 1 MG TAB PO SCH ×2 (09:31→21:08)
[2021-04-19] MEDS: FAMOTIDINE 20 MG TAB PO SCH ×2 (09:31→21:08)
[2021-04-19] MEDS: CHOLECALCIFEROL (VIT D3) 5,000 UNIT TAB PO SCH (09:31)
[2021-04-19] MEDS: ZINC SULFATE 220 MG CAP PO SCH ×2 (09:31→21:08)
[2021-04-19] MEDS: ASCORBIC ACID 500 MG TAB PO SCH ×2 (09:31→21:08)
[2021-04-19] MEDS: ENOXAPARIN 40 MG/0.4 ML INJ SUB-Q SCH ×2 (09:31→21:08)
--- NOTE | 2021-04-19 09:54 | Progress Note ---
Assessment and Plan 31 y/o male with acute respiratory failure secondary to COVID pneumonia. 04/19/21: Will give lasix 40 IV today. Chemistry is ok. Order placed to RT for more aggressive weaning. Still no documentation of proning or refusal. 04/18/21: will give 20 of lasix IV x1 today. Please check BMP in am. Continue with steroids. Will speak with nursing about proning order and proper documentation if patient is refusing. 04/17/21: Please document if patient is proning or refusing to do so. COntinue IV steroids with solumedrol. Wean FiO2 for sats >88%. May consider some lasix therapy tomorrow. Not a candidate for Actemra 1. Suggest increasing steroids to either BID dosing on Dex or Solumedrol 40q8 2. Prone as tolerated during the day and sleep prone at night 3. Should be a candidate for Remdesivir. Not sure about actemra. From what I can find out, his oxygen was only increased for dyspnea not for desaturation so not sure if this qualifies him. 4. Suggest fluid restriction 5. Guarded prognosis given diagnosis and obesity. Subjective Date of service: 04/19/21 Interval history: Responded to lasix but still positive. No weaning of venti mask Objective Vital Signs - 12hr 04/18/21 04/19/21 04/19/21 22:00 00:37 04:54 Temperature 97.5 F L 98.7 F Pulse Rate 72 87 Respiratory 16 18 Rate Blood Pressure 124/83 Blood Pressure 145/94 [Left] O2 Sat by Pulse 97 97 98 Oximetry CBC and BMP: 04/17/21 04:27 04/18/21 04:43 ABG, PT/INR, D-dimer: ABG ABG pH 7.387 (7.320-7.450) 04/16/21 14:32 POC ABG pCO2 38.6 mmHg (32.0-48.0) 04/16/21 14:32 POC ABG pO2 79.1 mmHg (83-108) L 04/16/21 14:32 POC ABG HCO3 22.7 04/16/21 14:32 ABG O2 Saturation 95.9 (0-100) 04/16/21 14:32 PT/INR, D-dimer D-Dimer 339.80 ng/mlDDU (0-234) H 04/17/21 04:27 Abnormal lab findings: Abnormal Labs 04/13/21 04/13/21 04/13/21 23:02 23:02 23:02 WBC RBC 5.09 H MCV 81 L MCH 26 L MCHC RDW Lymph % (Auto) Lymph # (Auto) 1.0 L Seg Neutrophils % 79.5 H Seg Neuts % (Manual) Seg Neutrophils # Seg Neutrophils # Man Lymphocytes # (Manual) D-Dimer 440.91 H POC ABG pO2 ABG Chloride ABG Glucose Carboxyhemoglobin Sodium Chloride Carbon Dioxide Creatinine 2.1 H Glucose 123 H Ferritin AST 48 H Lactate Dehydrogenase C-Reactive Protein Total Protein Albumin 3.4 L Arterial Blood Glucose Coronavirus (PCR) 04/13/21 04/13/21 04/14/21 23:02 23:02 08:46 WBC RBC MCV MCH MCHC RDW Lymph % (Auto) Lymph # (Auto) Seg Neutrophils % Seg Neuts % (Manual) Seg Neutrophils # Seg Neutrophils # Man Lymphocytes # (Manual) D-Dimer POC ABG pO2 ABG Chloride ABG Glucose Carboxyhemoglobin Sodium Chloride Carbon Dioxide Creatinine Glucose 124 H Ferritin 519.6 H AST Lactate Dehydrogenase 439 H C-Reactive Protein 2.50 H Total Protein Albumin Arterial Blood Glucose Coronavirus (PCR) Positive A 04/15/21 04/15/21 04/16/21 07:38 07:38 09:32 WBC 13.5 H RBC 5.44 H MCV 82 L MCH 26 L MCHC RDW 15.3 H Lymph % (Auto) 6.8 L Lymph # (Auto) 0.9 L Seg Neutrophils % 88.2 H Seg Neuts % (Manual) Seg Neutrophils # 11.9 H Seg Neutrophils # Man Lymphocytes # (Manual) D-Dimer POC ABG pO2 ABG Chloride ABG Glucose Carboxyhemoglobin Sodium Chloride 108.8 H Carbon Dioxide 20 L 20 L Creatinine Glucose 137 H 153 H Ferritin AST 47 H 61 H Lactate Dehydrogenase C-Reactive Protein Total Protein 8.3 H 6.2 L D Albumin 3.8 L 3.1 L Arterial Blood Glucose Coronavirus (PCR) 04/16/21 04/17/21 04/17/21 14:32 04:27 04:27 WBC 14.0 H RBC 5.55 H MCV 81 L MCH 25 L MCHC 31 L RDW Lymph % (Auto) Lymph # (Auto) Seg Neutrophils % Seg Neuts % (Manual) 91.0 H Seg Neutrophils # Seg Neutrophils # Man 12.7 H Lymphocytes # (Manual) 0.0 L D-Dimer POC ABG pO2 79.1 L ABG Chloride 108.0 H ABG Glucose 142 H Carboxyhemoglobin 0.1 L Sodium Chloride 107.8 H Carbon Dioxide 20 L Creatinine Glucose 150 H Ferritin AST 47 H Lactate Dehydrogenase C-Reactive Protein Total Protein Albumin 2.8 L Arterial Blood Glucose 142 H Coronavirus (PCR) 04/17/21 04/18/21 04/18/21 04:27 04:42 04:43 WBC RBC MCV MCH MCHC RDW Lymph % (Auto) Lymph # (Auto) Seg Neutrophils % Seg Neuts % (Manual) Seg Neutrophils # Seg Neutrophils # Man Lymphocytes # (Manual) D-Dimer 339.80 H POC ABG pO2 ABG Chloride ABG Glucose Carboxyhemoglobin Sodium 147 H Chloride 111.3 H Carbon Dioxide 21 L Creatinine Glucose 151 H Ferritin AST Lactate Dehydrogenase C-Reactive Protein 1.40 H Total Protein Albumin 3.1 L Arterial Blood Glucose Coronavirus (PCR)
[2021-04-19] MEDS ORDERED: FUROSEMIDE 40 MG/4 ML INJ IV SCH (10:00)
--- NOTE | 2021-04-19 11:36 | Progress Note ---
Assessment and Plan Cultures: Blood culture no growth so far A/P: 31 yo M PMHx asthma presented with: #Severe COVID-19 pneumonia: Patient presented with a week of symptoms, chest x- ray with diffuse bilateral infiltrates, admission O2 sats decreased on room air. Inflammatory markers elevated #Acute hypoxemic respiratory failure: Likely secondary to COVID-19 infection. Currently on venti-mask #Transaminitis: improving. Likely secondary to COVID. #morbid obesity: associated with worse covid outcomes Recommendations: -Dexamethasone 6 mg IV/PO daily for 10 days -Remdesivir 200 mg IV q day x 1 followed by 100 mg IV q day x 4 days -CRP too low for tocilizumab at present/now normal. -Obtain q48-72h inflammatory markers - ferritin, Ddimer, CRP, LDH -Continue ceftriaxone 2 gm IV qday and azithromycin 500 mg PO qday for 5 days given elevated procalcitonin -Anticoagulation per hospital protocol -Proning as able All labs reviewed. Thank you for the consult, we will continue to follow. Vin Ramon MD [facility] ([facility] O: [phone] F: [phone] Subjective Date of service: 04/19/21 Interval history: Afebrile, no acute changes. Currently on Venturi mask. Objective - Exam Narrative Exam: Physical exam deferred to reduce risk of transmission of COVID-19. Please refer to primary team's note. - Constitutional Vitals: Vital Signs Temp Pulse Resp BP Pulse Ox 98.7 F 87 18 124/83 96 04/19/21 04:54 04/19/21 04:54 04/19/21 04:54 04/19/21 04:54 04/19/21 09:25 Temperature -Last 24 Hours Temperature 98.7 F Temperature 97.5 F Temperature 98.3 F Temperature 98.1 F - Labs CBC & Chem 7: 04/17/21 04:27 04/18/21 04:43
--- NOTE | 2021-04-19 15:05 | Progress Note ---
Assessment and Plan Brief history: 31-year-old male with history of asthma was brought to the hospital by EMS for progressive shortness of breath and fever for the last 2 days. Patient states he is not vaccinated against COVID-19. While patient was in the care of EMS and waiting to be assigned a room, EMS took the patient to the bathroom and when the patient went to the standing position he had a syncopal episode. EMS states the caught him and helped him to the floor and did not hit his head. EMS states the patient did not hit his head. In the emergency room patient is found to have Covid pneumonia and respiratory failure. Assessment and plan: -- Acute hypoxic respiratory failure Due to COVID-19 pneumonia, remains on Ventimask's Albuterol inhalers as needed, empiric steroid Continue to treat for COVID-19 pneumonia -- COVID-19 pneumonia Tested positive for COVID-19 by PCR test. Continue isolation as per protocol, supplemental vitamins, supportive measures, incentive spirometry as tolerated, Decadron changed to Solu-Medrol and started remdesivir. Empiric antibiotic therapy with Rocephin and azithromycin since procalcitonin elevated. Continue supplemental oxygen and wean as tolerated. Pulmonary and ID consulted. -- D-dimer 440 CTA negative for PE but did show bilateral pneumonia. -- acute renal insufficiency, OPHELIA, resolving presented with Creatinine 2.1 with unknown baseline. Hydrating with half-normal saline at the rate of 100 cc/h. Avoid nephrotoxic drug. Renally dose medication. follow BMP -- Bronchial asthma No significant exacerbation ProAir 2 puffs 4 times daily, steroid inhalers not available in pharmacy. On Solu-Medrol -- syncopal episode in ED bathroom Likely vasovagal after walking to bathroom to ED from dehydration, hypoxia and exertional pulmonary decompensation clear conjugated Hydrating with half-normal saline at the rate of 100 cc/h. He is mentating well currently. We will monitor the patient closely. -- anxiety/insomnia Ordered Josselyn and Codey and patient reports significant relief -- morbid obesity At higher risk for poor outcomes --DVT prophylaxis Heparin 5000 units subcu every 8 hours. Pepcid 20 mg p.o. twice daily for GI prophylaxis. Patient is a full code Discussed with the patient in detail and nursing staff. Daily clinical course: 04/15: Patient is anxious and keeping O2 only intermittently, Ventimask. Currently O2 increased to 8 L, RT reporting saturating well. Decadron changed to Solu-Medrol. May have mild asthma exacerbation but no overt wheezing. Oxygen via nasal catheter per minute. Albuterol 2.5 mg by nebulizer every 4 hours as needed. Dexamethasone 6 mg IV daily. Rocephin 2 g IV daily. Zithromax 500 mg IV daily. We will do the blood cultures sputum culture . Will consult infectious disease as well as pulmonary for evaluation. Follow Covid inflammatory marker 04/16: Anxiety improved with Ativan. Able to keep his Ventimask in place. FiO2 0.35-0.50 currently. Saturating 98 200%. HR 70-80. RR 16-20. In moderate respiratory distress but no significant use of accessory muscles of respiration. Mentation is normal to stable. ABG 7.38, 38.6, 79, on FiO2 50%. Evaluated by ID today and felt not a candidate for Actemra since CRP low 2.5 and 0.9. We will continue to monitor closely for respiratory decompensation. Patient has a low-grade fever, 100.3. Blood cultures negative. On empiric azithromycin and Rocephin since procalcitonin elevated. ID following. 04/17: Remains on 15 L Ventimask, ID and pulmonary following. Noted to have low- grade temp but clinically seems to be improving. Wean off O2 as tolerated 04/18: cont solumedrol for 10 days and Remdesivir 200 mg IV q day x 1 followed by 100 mg IV q day x 4 days -CRP too low for tocilizumab at present/now normal. -Obtain q48-72h inflammatory markers - ferritin, Ddimer, CRP, LDH -Continue ceftriaxone 2 gm IV qday and azithromycin 500 mg PO qday for 5 days given elevated procalcitonin -remains on 15L venti mask 04/19: Patient stable with faint 10 L Ventimask, wean off oxygen as tolerated, complete 5 days of remdesivir along with Rocephin and Zithromax. Continue Solu- Medrol. Subjective Date of service: 04/19/21 Interval history: Patient remains on a Ventimask 15L, Saturating 98-100%. vitals noted, no acute o/n event Appetite seems to improving Objective - Exam Narrative Exam: Limited physical exam due to COVID-19 pandemic to minimize transmission of the disease and to preserve PPE. Vital reviewed and stable. GENERAL: well-developed well-nourished lying on bed appeared to be in no discomfort. HEENT: Normocephalic. Atraumatic. NECK: Supple. CHEST/LUNGS: breathing on ventimask. HEART/CARDIOVASCULAR: Heart rate stable on telemetry ABDOMEN: Visibly not distended SKIN: There is no rash NEURO: No focal motor deficit. Follows command. MUSCULOSKELETAL: No joint effusion EXTRIMITY: No swelling, no cyanosis or clubbing. PSYCH: Cooperative. - Constitutional Vitals: Vital Signs - 12hr 04/19/21 04/19/21 04/19/21 04:54 09:25 10:00 Temperature 98.7 F Pulse Rate 87 Respiratory 18 Rate Blood Pressure 124/83 O2 Sat by Pulse 98 96 95 Oximetry 04/19/21 11:49 Temperature 98.4 F Pulse Rate 77 Respiratory 20 Rate Blood Pressure 137/71 O2 Sat by Pulse 94 Oximetry - Labs CBC & Chem 7: 04/17/21 04:27 04/18/21 04:43 HEART Score - HEART Score Troponin: Troponin T < 0.010 ng/mL (0.00-0.029) 04/13/21 23:02
[2021-04-19] MEDS: REMDESIVIR 100 MG in SODIUM CHLORIDE 0.9% 250ML 250 ML IV SCH (21:01)
[2021-04-19] MEDS: SODIUM CHLORIDE 0.9% 50 ML IVPB IV SCH (21:56)
[2021-04-20] MEDS: ACETAMINOPHEN 325 MG TAB PO PRN ×2 (04:33→08:10)
[2021-04-20] MEDS: methylPREDNISolone Sod Succinate 40 MG/1 ML INJ IV SCH ×3 (05:07→21:31)
[2021-04-20] MEDS: LORazepam 1 MG TAB PO SCH ×2 (09:52→21:31)
[2021-04-20] MEDS: CHOLECALCIFEROL (VIT D3) 5,000 UNIT TAB PO SCH (09:52)
[2021-04-20] MEDS: ZINC SULFATE 220 MG CAP PO SCH ×2 (09:52→21:31)
[2021-04-20] MEDS: ASCORBIC ACID 500 MG TAB PO SCH ×2 (09:52→21:31)
[2021-04-20] MEDS: FAMOTIDINE 20 MG TAB PO SCH ×2 (09:52→21:31)
[2021-04-20] MEDS: ENOXAPARIN 40 MG/0.4 ML INJ SUB-Q SCH ×2 (09:52→21:31)
--- NOTE | 2021-04-20 10:57 | Progress Note ---
Assessment and Plan Cultures: Blood culture no growth so far A/P: 31 yo M PMHx asthma presented with: #Severe COVID-19 pneumonia: Patient presented with a week of symptoms, chest x- ray with diffuse bilateral infiltrates, admission O2 sats decreased on room air. Inflammatory markers elevated #Acute hypoxemic respiratory failure: Likely secondary to COVID-19 infection. Currently on venturi-mask #Transaminitis: improving. Likely secondary to COVID. #morbid obesity: associated with worse covid outcomes Recommendations: -Steroids per pulmonary, recommend 10 days. -Completed Remdesivir -CRP too low for tocilizumab at present/now normal. -Obtain q48-72h inflammatory markers - ferritin, Ddimer, CRP, LDH -Completed empiric antibiotics given elevated procalcitonin -Anticoagulation per hospital protocol -Proning as able All labs reviewed. Thank you for the consult, we will continue to follow. Dr. Montes taking over Friday Vin Ramon MD [facility] ([facility]) O: [phone] F: [phone] Subjective Date of service: 04/20/21 Interval history: Afebrile, no acute change. Remains on Venturi mask Objective - Exam Narrative Exam: Physical exam deferred to reduce risk of transmission of COVID-19. Please refer to primary team's note. - Constitutional Vitals: Vital Signs Temp Pulse Resp BP Pulse Ox 98.1 F 94 H 18 127/77 93 04/20/21 04:40 04/20/21 04:40 04/20/21 04:40 04/20/21 04:40 04/20/21 10:00 Temperature -Last 24 Hours Temperature 98.1 F Temperature 97.5 F Temperature 98.4 F - Labs CBC & Chem 7: 04/17/21 04:27 04/18/21 04:43 Labs: Abnormal lab results 04/19/21 Range/Units 23:32 POC Glucose 171 H (70-105) mg/dL
--- NOTE | 2021-04-20 11:20 | Progress Note ---
Assessment and Plan Brief history: 31-year-old male with history of asthma was brought to the hospital by EMS for progressive shortness of breath and fever for the last 2 days. Patient states he is not vaccinated against COVID-19. While patient was in the care of EMS and waiting to be assigned a room, EMS took the patient to the bathroom and when the patient went to the standing position he had a syncopal episode. EMS states the caught him and helped him to the floor and did not hit his head. EMS states the patient did not hit his head. In the emergency room patient is found to have Covid pneumonia and respiratory failure. Assessment and plan: -- Acute hypoxic respiratory failure Due to COVID-19 pneumonia, remains on Ventimask's Albuterol inhalers as needed, empiric steroid Continue to treat for COVID-19 pneumonia -- COVID-19 pneumonia Tested positive for COVID-19 by PCR test. Continue isolation as per protocol, supplemental vitamins, supportive measures, incentive spirometry as tolerated, Decadron changed to Solu-Medrol and started remdesivir. s/p Empiric antibiotic therapy with Rocephin and azithromycin since procalcitonin elevated. Completed remdesivir, not a candidate for Actemra Continue supplemental oxygen and wean as tolerated. Pulmonary and ID consulted. -- D-dimer 440 CTA negative for PE but did show bilateral pneumonia. -- acute renal insufficiency, OPHELIA, resolving presented with Creatinine 2.1 with unknown baseline. Hydrating with half-normal saline at the rate of 100 cc/h. Avoid nephrotoxic drug. Renally dose medication. follow BMP -- Bronchial asthma No significant exacerbation ProAir 2 puffs 4 times daily, steroid inhalers not available in pharmacy. On Solu-Medrol -- syncopal episode in ED bathroom Likely vasovagal after walking to bathroom to ED from dehydration, hypoxia and exertional pulmonary decompensation clear conjugated Hydrating with half-normal saline at the rate of 100 cc/h. He is mentating well currently. We will monitor the patient closely. -- anxiety/insomnia Ordered Atraven and Delien and patient reports significant relief -- morbid obesity At higher risk for poor outcomes --DVT prophylaxis Heparin 5000 units subcu every 8 hours. Pepcid 20 mg p.o. twice daily for GI prophylaxis. Patient is a full code Discussed with the patient in detail and nursing staff. Daily clinical course: 04/15: Patient is anxious and keeping O2 only intermittently, Ventimask. Currently O2 increased to 8 L, RT reporting saturating well. Decadron changed to Solu-Medrol. May have mild asthma exacerbation but no overt wheezing. Oxygen via nasal catheter per minute. Albuterol 2.5 mg by nebulizer every 4 hours as needed. Dexamethasone 6 mg IV daily. Rocephin 2 g IV daily. Zithromax 500 mg IV daily. We will do the blood cultures sputum culture . Will consult infectious disease as well as pulmonary for evaluation. Follow Covid inflammatory marker 04/16: Anxiety improved with Ativan. Able to keep his Ventimask in place. FiO2 0.35-0.50 currently. Saturating 98 200%. HR 70-80. RR 16-20. In moderate respiratory distress but no significant use of accessory muscles of respiration. Mentation is normal to stable. ABG 7.38, 38.6, 79, on FiO2 50%. Evaluated by ID today and felt not a candidate for Actemra since CRP low 2.5 and 0.9. We will continue to monitor closely for respiratory decompensation. Patient has a low-grade fever, 100.3. Blood cultures negative. On empiric azithromycin and Rocephin since procalcitonin elevated. ID following. 04/17: Remains on 15 L Ventimask, ID and pulmonary following. Noted to have low- grade temp but clinically seems to be improving. Wean off O2 as tolerated 04/18: cont solumedrol for 10 days and Remdesivir 200 mg IV q day x 1 followed by 100 mg IV q day x 4 days -CRP too low for tocilizumab at present/now normal. -Obtain q48-72h inflammatory markers - ferritin, Ddimer, CRP, LDH -Continue ceftriaxone 2 gm IV qday and azithromycin 500 mg PO qday for 5 days given elevated procalcitonin -remains on 15L venti mask 04/19: Patient stable with faint 10 L Ventimask, wean off oxygen as tolerated, complete 5 days of remdesivir along with Rocephin and Zithromax. Continue Solu- Medrol. 04/20: Completed Zithromax Rocephin and remdesivir. Continue Solu-Medrol IV per pulmonary. Continue to wean off O2 as tolerated, remains on 15 L Ventimask's. Subjective Date of service: 04/20/21 Interval history: Patient remains on a Ventimask 15L, Saturating 98-100%. vitals noted, no acute o/n event Appetite seems to improving Objective - Exam Narrative Exam: Limited physical exam due to COVID-19 pandemic to minimize transmission of the disease and to preserve PPE. Vital reviewed and stable. GENERAL: well-developed well-nourished lying on bed appeared to be in no discomfort. HEENT: Normocephalic. Atraumatic. NECK: Supple. CHEST/LUNGS: breathing on ventimask. HEART/CARDIOVASCULAR: Heart rate stable on telemetry ABDOMEN: Visibly not distended SKIN: There is no rash NEURO: No focal motor deficit. Follows command. MUSCULOSKELETAL: No joint effusion EXTRIMITY: No swelling, no cyanosis or clubbing. PSYCH: Cooperative. - Constitutional Vitals: Vital Signs - 12hr 04/20/21 04/20/21 04:40 10:00 Temperature 98.1 F Pulse Rate 94 H Respiratory 18 Rate Blood Pressure 127/77 O2 Sat by Pulse 96 93 Oximetry - Labs CBC & Chem 7: 04/17/21 04:27 04/18/21 04:43 Labs: Abnormal lab results 04/19/21 Range/Units 23:32 POC Glucose 171 H (70-105) mg/dL HEART Score - HEART Score Troponin: Troponin T < 0.010 ng/mL (0.00-0.029) 04/13/21 23:02
--- NOTE | 2021-04-20 12:59 | Progress Note ---
Assessment and Plan 31 y/o male with acute respiratory failure secondary to COVID pneumonia. 04/20/21: Hold on lasix today. No chemistry checked yesterday or this morning. Suggest checking one tomorrow. Will speak with RT about weaning process. Guarded prognosis 04/19/21: Will give lasix 40 IV today. Chemistry is ok. Order placed to RT for more aggressive weaning. Still no documentation of proning or refusal. 04/18/21: will give 20 of lasix IV x1 today. Please check BMP in am. Continue with steroids. Will speak with nursing about proning order and proper documentation if patient is refusing. 04/17/21: Please document if patient is proning or refusing to do so. COntinue IV steroids with solumedrol. Wean FiO2 for sats >88%. May consider some lasix therapy tomorrow. Not a candidate for Actemra 1. Suggest increasing steroids to either BID dosing on Dex or Solumedrol 40q8 2. Prone as tolerated during the day and sleep prone at night 3. Should be a candidate for Remdesivir. Not sure about actemra. From what I can find out, his oxygen was only increased for dyspnea not for desaturation so not sure if this qualifies him. 4. Suggest fluid restriction 5. Guarded prognosis given diagnosis and obesity. Subjective Date of service: 04/20/21 Interval history: Still no weaning, still no documentation of proning or refusal Objective Vital Signs - 12hr 04/20/21 04/20/21 04/20/21 04:40 10:00 11:58 Temperature 98.1 F 97.3 F L Pulse Rate 94 H 78 Respiratory 18 18 Rate Blood Pressure 127/77 120/82 O2 Sat by Pulse 96 98 99 Oximetry CBC and BMP: 04/17/21 04:27 04/18/21 04:43 ABG, PT/INR, D-dimer: ABG ABG pH 7.387 (7.320-7.450) 04/16/21 14:32 POC ABG pCO2 38.6 mmHg (32.0-48.0) 04/16/21 14:32 POC ABG pO2 79.1 mmHg (83-108) L 04/16/21 14:32 POC ABG HCO3 22.7 04/16/21 14:32 ABG O2 Saturation 95.9 (0-100) 04/16/21 14:32 PT/INR, D-dimer D-Dimer 339.80 ng/mlDDU (0-234) H 04/17/21 04:27 Abnormal lab findings: Abnormal Labs 04/13/21 04/13/21 04/13/21 23:02 23:02 23:02 WBC RBC 5.09 H MCV 81 L MCH 26 L MCHC RDW Lymph % (Auto) Lymph # (Auto) 1.0 L Seg Neutrophils % 79.5 H Seg Neuts % (Manual) Seg Neutrophils # Seg Neutrophils # Man Lymphocytes # (Manual) D-Dimer 440.91 H POC ABG pO2 ABG Chloride ABG Glucose Carboxyhemoglobin Sodium Chloride Carbon Dioxide Creatinine 2.1 H Glucose 123 H POC Glucose Ferritin AST 48 H Lactate Dehydrogenase C-Reactive Protein Total Protein Albumin 3.4 L Arterial Blood Glucose Coronavirus (PCR) 04/13/21 04/13/21 04/14/21 23:02 23:02 08:46 WBC RBC MCV MCH MCHC RDW Lymph % (Auto) Lymph # (Auto) Seg Neutrophils % Seg Neuts % (Manual) Seg Neutrophils # Seg Neutrophils # Man Lymphocytes # (Manual) D-Dimer POC ABG pO2 ABG Chloride ABG Glucose Carboxyhemoglobin Sodium Chloride Carbon Dioxide Creatinine Glucose 124 H POC Glucose Ferritin 519.6 H AST Lactate Dehydrogenase 439 H C-Reactive Protein 2.50 H Total Protein Albumin Arterial Blood Glucose Coronavirus (PCR) Positive A 04/15/21 04/15/21 04/16/21 07:38 07:38 09:32 WBC 13.5 H RBC 5.44 H MCV 82 L MCH 26 L MCHC RDW 15.3 H Lymph % (Auto) 6.8 L Lymph # (Auto) 0.9 L Seg Neutrophils % 88.2 H Seg Neuts % (Manual) Seg Neutrophils # 11.9 H Seg Neutrophils # Man Lymphocytes # (Manual) D-Dimer POC ABG pO2 ABG Chloride ABG Glucose Carboxyhemoglobin Sodium Chloride 108.8 H Carbon Dioxide 20 L 20 L Creatinine Glucose 137 H 153 H POC Glucose Ferritin AST 47 H 61 H Lactate Dehydrogenase C-Reactive Protein Total Protein 8.3 H 6.2 L D Albumin 3.8 L 3.1 L Arterial Blood Glucose Coronavirus (PCR) 04/16/21 04/17/21 04/17/21 14:32 04:27 04:27 WBC 14.0 H RBC 5.55 H MCV 81 L MCH 25 L MCHC 31 L RDW Lymph % (Auto) Lymph # (Auto) Seg Neutrophils % Seg Neuts % (Manual) 91.0 H Seg Neutrophils # Seg Neutrophils # Man 12.7 H Lymphocytes # (Manual) 0.0 L D-Dimer POC ABG pO2 79.1 L ABG Chloride 108.0 H ABG Glucose 142 H Carboxyhemoglobin 0.1 L Sodium Chloride 107.8 H Carbon Dioxide 20 L Creatinine Glucose 150 H POC Glucose Ferritin AST 47 H Lactate Dehydrogenase C-Reactive Protein Total Protein Albumin 2.8 L Arterial Blood Glucose 142 H Coronavirus (PCR) 04/17/21 04/18/21 04/18/21 04:27 04:42 04:43 WBC RBC MCV MCH MCHC RDW Lymph % (Auto) Lymph # (Auto) Seg Neutrophils % Seg Neuts % (Manual) Seg Neutrophils # Seg Neutrophils # Man Lymphocytes # (Manual) D-Dimer 339.80 H POC ABG pO2 ABG Chloride ABG Glucose Carboxyhemoglobin Sodium 147 H Chloride 111.3 H Carbon Dioxide 21 L Creatinine Glucose 151 H POC Glucose Ferritin AST Lactate Dehydrogenase C-Reactive Protein 1.40 H Total Protein Albumin 3.1 L Arterial Blood Glucose Coronavirus (PCR) 04/19/21 23:32 WBC RBC MCV MCH MCHC RDW Lymph % (Auto) Lymph # (Auto) Seg Neutrophils % Seg Neuts % (Manual) Seg Neutrophils # Seg Neutrophils # Man Lymphocytes # (Manual) D-Dimer POC ABG pO2 ABG Chloride ABG Glucose Carboxyhemoglobin Sodium Chloride Carbon Dioxide Creatinine Glucose POC Glucose 171 H Ferritin AST Lactate Dehydrogenase C-Reactive Protein Total Protein Albumin Arterial Blood Glucose Coronavirus (PCR)
[2021-04-21] MEDS: methylPREDNISolone Sod Succinate 40 MG/1 ML INJ IV SCH ×3 (05:09→21:19)
[2021-04-21] MEDS: FAMOTIDINE 20 MG TAB PO SCH ×2 (10:20→21:19)
[2021-04-21] MEDS: ENOXAPARIN 40 MG/0.4 ML INJ SUB-Q SCH ×2 (10:20→21:19)
[2021-04-21] MEDS: ASCORBIC ACID 500 MG TAB PO SCH ×2 (10:20→21:19)
[2021-04-21] MEDS: CHOLECALCIFEROL (VIT D3) 5,000 UNIT TAB PO SCH (10:20)
[2021-04-21] MEDS: ZINC SULFATE 220 MG CAP PO SCH ×2 (10:20→21:19)
[2021-04-21] MEDS: LORazepam 1 MG TAB PO SCH ×2 (10:20→21:22)
--- NOTE | 2021-04-21 12:09 | Progress Note ---
Assessment and Plan 31 y/o male with acute respiratory failure secondary to COVID pneumonia. 04/21/2021: Seems to be fairly stable on Ventimask. Denied any shortness of breath. No chemistries were done. Will order BMP for tomorrow. 04/20/21: Hold on lasix today. No chemistry checked yesterday or this morning. Suggest checking one tomorrow. Will speak with RT about weaning process. Guarded prognosis 04/19/21: Will give lasix 40 IV today. Chemistry is ok. Order placed to RT for more aggressive weaning. Still no documentation of proning or refusal. 04/18/21: will give 20 of lasix IV x1 today. Please check BMP in am. Continue with steroids. Will speak with nursing about proning order and proper documentation if patient is refusing. 04/17/21: Please document if patient is proning or refusing to do so. COntinue IV steroids with solumedrol. Wean FiO2 for sats >88%. May consider some lasix therapy tomorrow. Not a candidate for Actemra 1. Suggest increasing steroids to either BID dosing on Dex or Solumedrol 40q8 2. Prone as tolerated during the day and sleep prone at night 3. Should be a candidate for Remdesivir. Not sure about actemra. From what I can find out, his oxygen was only increased for dyspnea not for desaturation so not sure if this qualifies him. 4. Suggest fluid restriction 5. Guarded prognosis given diagnosis and obesity. Subjective Date of service: 04/21/21 Interval history: No new complaints. Currently on Ventimask at 40% Objective - Exam Narrative Exam: Physical exam deferred to reduce risk of transmission of COVID-19. Please refer to primary team's note. Vital Signs - 12hr 04/21/21 04/21/21 04/21/21 04:53 07:28 07:29 Temperature 99.0 F Pulse Rate 79 81 Respiratory 20 18 Rate Blood Pressure O2 Sat by Pulse 96 98 98 Oximetry 04/21/21 04/21/21 10:00 11:10 Temperature 98.7 F Pulse Rate 81 Respiratory 22 Rate Blood Pressure 126/86 O2 Sat by Pulse 97 97 Oximetry CBC and BMP: 04/17/21 04:27 04/18/21 04:43 ABG, PT/INR, D-dimer: ABG ABG pH 7.387 (7.320-7.450) 04/16/21 14:32 POC ABG pCO2 38.6 mmHg (32.0-48.0) 04/16/21 14:32 POC ABG pO2 79.1 mmHg (83-108) L 04/16/21 14:32 POC ABG HCO3 22.7 04/16/21 14:32 ABG O2 Saturation 95.9 (0-100) 04/16/21 14:32 PT/INR, D-dimer D-Dimer 339.80 ng/mlDDU (0-234) H 04/17/21 04:27 Abnormal lab findings: Abnormal Labs 04/13/21 04/13/21 04/13/21 23:02 23:02 23:02 WBC RBC 5.09 H MCV 81 L MCH 26 L MCHC RDW Lymph % (Auto) Lymph # (Auto) 1.0 L Seg Neutrophils % 79.5 H Seg Neuts % (Manual) Seg Neutrophils # Seg Neutrophils # Man Lymphocytes # (Manual) D-Dimer 440.91 H POC ABG pO2 ABG Chloride ABG Glucose Carboxyhemoglobin Sodium Chloride Carbon Dioxide Creatinine 2.1 H Glucose 123 H POC Glucose Ferritin AST 48 H Lactate Dehydrogenase C-Reactive Protein Total Protein Albumin 3.4 L Arterial Blood Glucose Coronavirus (PCR) 04/13/21 04/13/21 04/14/21 23:02 23:02 08:46 WBC RBC MCV MCH MCHC RDW Lymph % (Auto) Lymph # (Auto) Seg Neutrophils % Seg Neuts % (Manual) Seg Neutrophils # Seg Neutrophils # Man Lymphocytes # (Manual) D-Dimer POC ABG pO2 ABG Chloride ABG Glucose Carboxyhemoglobin Sodium Chloride Carbon Dioxide Creatinine Glucose 124 H POC Glucose Ferritin 519.6 H AST Lactate Dehydrogenase 439 H C-Reactive Protein 2.50 H Total Protein Albumin Arterial Blood Glucose Coronavirus (PCR) Positive A 04/15/21 04/15/21 04/16/21 07:38 07:38 09:32 WBC 13.5 H RBC 5.44 H MCV 82 L MCH 26 L MCHC RDW 15.3 H Lymph % (Auto) 6.8 L Lymph # (Auto) 0.9 L Seg Neutrophils % 88.2 H Seg Neuts % (Manual) Seg Neutrophils # 11.9 H Seg Neutrophils # Man Lymphocytes # (Manual) D-Dimer POC ABG pO2 ABG Chloride ABG Glucose Carboxyhemoglobin Sodium Chloride 108.8 H Carbon Dioxide 20 L 20 L Creatinine Glucose 137 H 153 H POC Glucose Ferritin AST 47 H 61 H Lactate Dehydrogenase C-Reactive Protein Total Protein 8.3 H 6.2 L D Albumin 3.8 L 3.1 L Arterial Blood Glucose Coronavirus (PCR) 04/16/21 04/17/21 04/17/21 14:32 04:27 04:27 WBC 14.0 H RBC 5.55 H MCV 81 L MCH 25 L MCHC 31 L RDW Lymph % (Auto) Lymph # (Auto) Seg Neutrophils % Seg Neuts % (Manual) 91.0 H Seg Neutrophils # Seg Neutrophils # Man 12.7 H Lymphocytes # (Manual) 0.0 L D-Dimer POC ABG pO2 79.1 L ABG Chloride 108.0 H ABG Glucose 142 H Carboxyhemoglobin 0.1 L Sodium Chloride 107.8 H Carbon Dioxide 20 L Creatinine Glucose 150 H POC Glucose Ferritin AST 47 H Lactate Dehydrogenase C-Reactive Protein Total Protein Albumin 2.8 L Arterial Blood Glucose 142 H Coronavirus (PCR) 04/17/21 04/18/21 04/18/21 04:27 04:42 04:43 WBC RBC MCV MCH MCHC RDW Lymph % (Auto) Lymph # (Auto) Seg Neutrophils % Seg Neuts % (Manual) Seg Neutrophils # Seg Neutrophils # Man Lymphocytes # (Manual) D-Dimer 339.80 H POC ABG pO2 ABG Chloride ABG Glucose Carboxyhemoglobin Sodium 147 H Chloride 111.3 H Carbon Dioxide 21 L Creatinine Glucose 151 H POC Glucose Ferritin AST Lactate Dehydrogenase C-Reactive Protein 1.40 H Total Protein Albumin 3.1 L Arterial Blood Glucose Coronavirus (PCR) 04/19/21 23:32 WBC RBC MCV MCH MCHC RDW Lymph % (Auto) Lymph # (Auto) Seg Neutrophils % Seg Neuts % (Manual) Seg Neutrophils # Seg Neutrophils # Man Lymphocytes # (Manual) D-Dimer POC ABG pO2 ABG Chloride ABG Glucose Carboxyhemoglobin Sodium Chloride Carbon Dioxide Creatinine Glucose POC Glucose 171 H Ferritin AST Lactate Dehydrogenase C-Reactive Protein Total Protein Albumin Arterial Blood Glucose Coronavirus (PCR)
--- NOTE | 2021-04-21 14:06 | Progress Note ---
Assessment and Plan Brief history: 31-year-old male with history of asthma was brought to the hospital by EMS for progressive shortness of breath and fever for the last 2 days. Patient states he is not vaccinated against COVID-19. While patient was in the care of EMS and waiting to be assigned a room, EMS took the patient to the bathroom and when the patient went to the standing position he had a syncopal episode. EMS states the caught him and helped him to the floor and did not hit his head. EMS states the patient did not hit his head. In the emergency room patient is found to have Covid pneumonia and respiratory failure. Assessment and plan: -- Acute hypoxic respiratory failure Due to COVID-19 pneumonia, remains on Ventimask's Albuterol inhalers as needed, empiric steroid Continue to treat for COVID-19 pneumonia -- COVID-19 pneumonia Tested positive for COVID-19 by PCR test. Continue isolation as per protocol, supplemental vitamins, supportive measures, incentive spirometry as tolerated, Decadron changed to Solu-Medrol and started remdesivir. s/p Empiric antibiotic therapy with Rocephin and azithromycin since procalcitonin elevated. Completed remdesivir, not a candidate for Actemra Continue supplemental oxygen and wean as tolerated. Pulmonary and ID consulted. -- D-dimer 440 CTA negative for PE but did show bilateral pneumonia. -- acute renal insufficiency, OPHELIA, resolving presented with Creatinine 2.1 with unknown baseline. Hydrating with half-normal saline at the rate of 100 cc/h. Avoid nephrotoxic drug. Renally dose medication. follow BMP -- Bronchial asthma No significant exacerbation ProAir 2 puffs 4 times daily, steroid inhalers not available in pharmacy. On Solu-Medrol -- syncopal episode in ED bathroom Likely vasovagal after walking to bathroom to ED from dehydration, hypoxia and exertional pulmonary decompensation clear conjugated Hydrating with half-normal saline at the rate of 100 cc/h. He is mentating well currently. We will monitor the patient closely. -- anxiety/insomnia Ordered Atraven and Delien and patient reports significant relief -- morbid obesity At higher risk for poor outcomes --DVT prophylaxis Heparin 5000 units subcu every 8 hours. Pepcid 20 mg p.o. twice daily for GI prophylaxis. Patient is a full code Discussed with the patient in detail and nursing staff. Daily clinical course: 04/15: Patient is anxious and keeping O2 only intermittently, Ventimask. Currently O2 increased to 8 L, RT reporting saturating well. Decadron changed to Solu-Medrol. May have mild asthma exacerbation but no overt wheezing. Oxygen via nasal catheter per minute. Albuterol 2.5 mg by nebulizer every 4 hours as needed. Dexamethasone 6 mg IV daily. Rocephin 2 g IV daily. Zithromax 500 mg IV daily. We will do the blood cultures sputum culture . Will consult infectious disease as well as pulmonary for evaluation. Follow Covid inflammatory marker 04/16: Anxiety improved with Ativan. Able to keep his Ventimask in place. FiO2 0.35-0.50 currently. Saturating 98 200%. HR 70-80. RR 16-20. In moderate respiratory distress but no significant use of accessory muscles of respiration. Mentation is normal to stable. ABG 7.38, 38.6, 79, on FiO2 50%. Evaluated by ID today and felt not a candidate for Actemra since CRP low 2.5 and 0.9. We will continue to monitor closely for respiratory decompensation. Patient has a low-grade fever, 100.3. Blood cultures negative. On empiric azithromycin and Rocephin since procalcitonin elevated. ID following. 04/17: Remains on 15 L Ventimask, ID and pulmonary following. Noted to have low- grade temp but clinically seems to be improving. Wean off O2 as tolerated 04/18: cont solumedrol for 10 days and Remdesivir 200 mg IV q day x 1 followed by 100 mg IV q day x 4 days -CRP too low for tocilizumab at present/now normal. -Obtain q48-72h inflammatory markers - ferritin, Ddimer, CRP, LDH -Continue ceftriaxone 2 gm IV qday and azithromycin 500 mg PO qday for 5 days given elevated procalcitonin -remains on 15L venti mask 04/19: Patient stable with faint 10 L Ventimask, wean off oxygen as tolerated, complete 5 days of remdesivir along with Rocephin and Zithromax. Continue Solu- Medrol. 04/20: Completed Zithromax Rocephin and remdesivir. Continue Solu-Medrol IV per pulmonary. Continue to wean off O2 as tolerated, remains on 15 L Ventimask's. 04/21; continue to wean off O2 as tolerated, vitals noted and stable. DC planning when O2 requirement less than 5 L/min Subjective Date of service: 04/21/21 Interval history: Patient remains on a Ventimask 15L, Saturating 98-100%. vitals noted, no acute o/n event Appetite seems to improving Objective - Exam Narrative Exam: Limited physical exam due to COVID-19 pandemic to minimize transmission of the disease and to preserve PPE. Vital reviewed and stable. GENERAL: well-developed well-nourished lying on bed appeared to be in no discomfort. HEENT: Normocephalic. Atraumatic. NECK: Supple. CHEST/LUNGS: breathing on ventimask. HEART/CARDIOVASCULAR: Heart rate stable on telemetry ABDOMEN: Visibly not distended SKIN: There is no rash NEURO: No focal motor deficit. Follows command. MUSCULOSKELETAL: No joint effusion EXTRIMITY: No swelling, no cyanosis or clubbing. PSYCH: Cooperative. - Constitutional Vitals: Vital Signs - 12hr 04/21/21 04/21/21 04/21/21 04:53 07:28 07:29 Temperature 99.0 F Pulse Rate 79 81 Respiratory 20 18 Rate Blood Pressure O2 Sat by Pulse 96 98 98 Oximetry 04/21/21 04/21/21 10:00 11:10 Temperature 98.7 F Pulse Rate 81 Respiratory 22 Rate Blood Pressure 126/86 O2 Sat by Pulse 97 97 Oximetry - Labs CBC & Chem 7: 04/17/21 04:27 04/22/21 00:22 HEART Score - HEART Score Troponin: Troponin T < 0.010 ng/mL (0.00-0.029) 04/13/21 23:02
[2021-04-22 01:23] LABS: BUN/Creatinine Ratio 26; Blood Urea Nitrogen 26 mg/dL (9-20); Hemolysis Index 5
[2021-04-22] MEDS: methylPREDNISolone Sod Succinate 40 MG/1 ML INJ IV SCH ×3 (05:48→21:47)
--- NOTE | 2021-04-22 10:22 | Progress Note ---
Assessment and Plan Brief history: 31-year-old male with history of asthma was brought to the hospital by EMS for progressive shortness of breath and fever for the last 2 days. Patient states he is not vaccinated against COVID-19. While patient was in the care of EMS and waiting to be assigned a room, EMS took the patient to the bathroom and when the patient went to the standing position he had a syncopal episode. EMS states the caught him and helped him to the floor and did not hit his head. EMS states the patient did not hit his head. In the emergency room patient is found to have Covid pneumonia and respiratory failure. Assessment and plan: -- Acute hypoxic respiratory failure Due to COVID-19 pneumonia, remains on Ventimask's Albuterol inhalers as needed, empiric steroid Continue to treat for COVID-19 pneumonia -- COVID-19 pneumonia Tested positive for COVID-19 by PCR test. Continue isolation as per protocol, supplemental vitamins, supportive measures, incentive spirometry as tolerated, Decadron changed to Solu-Medrol and started remdesivir. s/p Empiric antibiotic therapy with Rocephin and azithromycin since procalcitonin was elevated. Completed remdesivir, not a candidate for Actemra Continue supplemental oxygen and wean as tolerated. Pulmonary and ID consulted. -- D-dimer 440 CTA negative for PE but did show bilateral pneumonia. -- acute renal insufficiency, OPHELIA, resolving presented with Creatinine 2.1 with unknown baseline. Hydrating with half-normal saline at the rate of 100 cc/h. Avoid nephrotoxic drug. Renally dose medication. follow BMP -- Bronchial asthma No significant exacerbation ProAir 2 puffs 4 times daily, steroid inhalers not available in pharmacy. On Solu-Medrol -- syncopal episode in ED bathroom Likely vasovagal after walking to bathroom to ED from dehydration, hypoxia and exertional pulmonary decompensation clear conjugated Hydrating with half-normal saline at the rate of 100 cc/h. He is mentating well currently. We will monitor the patient closely. -- anxiety/insomnia Ordered Atraven and Delien and patient reports significant relief -- morbid obesity At higher risk for poor outcomes --DVT prophylaxis Heparin 5000 units subcu every 8 hours. Pepcid 20 mg p.o. twice daily for GI prophylaxis. Patient is a full code Discussed with the patient in detail and nursing staff. Daily clinical course: 04/15: Patient is anxious and keeping O2 only intermittently, Ventimask. Currently O2 increased to 8 L, RT reporting saturating well. Decadron changed to Solu-Medrol. May have mild asthma exacerbation but no overt wheezing. Oxygen via nasal catheter per minute. Albuterol 2.5 mg by nebulizer every 4 hours as needed. Dexamethasone 6 mg IV daily. Rocephin 2 g IV daily. Zithromax 500 mg IV daily. We will do the blood cultures sputum culture . Will consult infectious disease as well as pulmonary for evaluation. Follow Covid inflammatory marker 04/16: Anxiety improved with Ativan. Able to keep his Ventimask in place. FiO2 0.35-0.50 currently. Saturating 98 200%. HR 70-80. RR 16-20. In moderate respiratory distress but no significant use of accessory muscles of respiration. Mentation is normal to stable. ABG 7.38, 38.6, 79, on FiO2 50%. Evaluated by ID today and felt not a candidate for Actemra since CRP low 2.5 and 0.9. We will continue to monitor closely for respiratory decompensation. Patient has a low-grade fever, 100.3. Blood cultures negative. On empiric azithromycin and Rocephin since procalcitonin elevated. ID following. 04/17: Remains on 15 L Ventimask, ID and pulmonary following. Noted to have low- grade temp but clinically seems to be improving. Wean off O2 as tolerated 04/18: cont solumedrol for 10 days and Remdesivir 200 mg IV q day x 1 followed by 100 mg IV q day x 4 days -CRP too low for tocilizumab at present/now normal. -Obtain q48-72h inflammatory markers - ferritin, Ddimer, CRP, LDH -Continue ceftriaxone 2 gm IV qday and azithromycin 500 mg PO qday for 5 days given elevated procalcitonin -remains on 15L venti mask 04/19: Patient stable with faint 10 L Ventimask, wean off oxygen as tolerated, complete 5 days of remdesivir along with Rocephin and Zithromax. Continue Solu- Medrol. 04/20: Completed Zithromax Rocephin and remdesivir. Continue Solu-Medrol IV per pulmonary. Continue to wean off O2 as tolerated, remains on 15 L Ventimask's. 04/21; continue to wean off O2 as tolerated, vitals noted and stable. DC planning when O2 requirement less than 5 L/min 04/22: Patient remains on 15-12L O2. cont to wean off as tolerated. cont sup portive care. Subjective Date of service: 04/22/21 Interval history: Patient seen and examined Patient remains on a Ventimask 12L, Saturating 98-100%. vitals noted, no acute o/n event Appetite seems to improving Objective - Exam Narrative Exam: Limited physical exam due to COVID-19 pandemic to minimize transmission of the disease and to preserve PPE. Vital reviewed and stable. GENERAL: well-developed well-nourished lying on bed appeared to be in no di scomfort. HEENT: Normocephalic. Atraumatic. NECK: Supple. CHEST/LUNGS: breathing on ventimask. HEART/CARDIOVASCULAR: Heart rate stable on telemetry ABDOMEN: Visibly not distended SKIN: There is no rash NEURO: No focal motor deficit. Follows command. MUSCULOSKELETAL: No joint effusion EXTRIMITY: No swelling, no cyanosis or clubbing. PSYCH: Cooperative. - Constitutional Vitals: Vital Signs - 12hr 04/22/21 04:34 Temperature 97.6 F Pulse Rate 62 Respiratory 18 Rate Blood Pressure 114/79 O2 Sat by Pulse 97 Oximetry - Labs CBC & Chem 7: 04/17/21 04:27 04/22/21 00:22 Labs: Abnormal lab results 04/22/21 Range/Units 00:22 BUN 26 H (9-20) mg/dL Glucose 173 H (75-100) mg/dL HEART Score - HEART Score Troponin: Troponin T < 0.010 ng/mL (0.00-0.029) 04/13/21 23:02
[2021-04-22] MEDS: ZINC SULFATE 220 MG CAP PO SCH ×2 (10:25→21:48)
[2021-04-22] MEDS: ASCORBIC ACID 500 MG TAB PO SCH ×2 (10:25→21:48)
[2021-04-22] MEDS: LORazepam 1 MG TAB PO SCH ×2 (10:25→21:48)
[2021-04-22] MEDS: FAMOTIDINE 20 MG TAB PO SCH ×2 (10:25→21:48)
[2021-04-22] MEDS: CHOLECALCIFEROL (VIT D3) 5,000 UNIT TAB PO SCH (10:25)
[2021-04-22] MEDS: ENOXAPARIN 40 MG/0.4 ML INJ SUB-Q SCH ×2 (10:25→21:47)
[2021-04-23] MEDS: methylPREDNISolone Sod Succinate 40 MG/1 ML INJ IV SCH ×3 (05:24→22:46)
[2021-04-23] MEDS: ACETAMINOPHEN 325 MG TAB PO PRN ×2 (05:45→22:46)
[2021-04-23] MEDS: FAMOTIDINE 20 MG TAB PO SCH ×2 (09:29→22:47)
[2021-04-23] MEDS: LORazepam 1 MG TAB PO SCH ×2 (09:29→22:47)
[2021-04-23] MEDS: ZINC SULFATE 220 MG CAP PO SCH ×2 (09:29→22:47)
[2021-04-23] MEDS: ASCORBIC ACID 500 MG TAB PO SCH ×2 (09:29→22:46)
[2021-04-23] MEDS: CHOLECALCIFEROL (VIT D3) 5,000 UNIT TAB PO SCH (09:29)
[2021-04-23] MEDS: ENOXAPARIN 40 MG/0.4 ML INJ SUB-Q SCH ×2 (09:29→22:48)
--- NOTE | 2021-04-23 10:06 | Progress Note ---
Assessment and Plan Cultures: Blood culture no growth 04/14/2021 COVID-19 PCR: Positive A/P: 31 yo M PMHx asthma presented with: #Severe COVID-19 pneumonia: Patient presented with a week of symptoms, chest x- ray with diffuse bilateral infiltrates, admission O2 sats decreased on room air. Inflammatory markers elevated #Acute hypoxemic respiratory failure: secondary to COVID-19 infection. Currently on venturi-mask #Transaminitis: improving. Likely secondary to COVID. #Morbid obesity: associated with worse covid outcomes Recommendations: -Steroids per pulmonary, recommend 10 days at least -Completed Remdesivir, antibiotics -CRP improved -Anticoagulation per hospital protocol -Continue oxygen weaning as tolerated ID will sign off. Please call with questions. Juan Montes MD, FACP, [facility] ([facility]) O: [phone] F: [phone] Subjective Date of service: 04/23/21 Interval history: No fever. Remains on Venturi mask. Objective - Exam Narrative Exam: Physical Exam (reviewed in chart to minimize risk of transmission) Constitutional: deferred Head, Ears, Nose: deferred Eyes: deferred Neck: deferred Oral: deferred Cardiovascular: deferred Respiratory: deferred GI: deferred Musculoskeletal: deferred Skin: deferred Hem/Lymphatic: deferred Psych: deferred Neurological: deferred - Constitutional Vitals: Vital Signs Temp Pulse Resp BP Pulse Ox 97.3 F L 65 20 136/75 96 04/23/21 05:33 04/23/21 05:33 04/23/21 08:16 04/23/21 05:33 04/23/21 08:16 Temperature -Last 24 Hours Temperature 97.3 F Temperature 97.7 F Temperature 98.1 F Temperature 97.8 F - Labs CBC & Chem 7: 04/17/21 04:27 04/22/21 00:22
--- NOTE | 2021-04-23 11:05 | Progress Note ---
Assessment and Plan 31 y/o male with acute respiratory failure secondary to COVID pneumonia. 04/23/21: Suggest lasix today. Please continue to wean FiO2 and encourage proning. Weight loss. Steroids for 10 says. 04/20/21: Hold on lasix today. No chemistry checked yesterday or this morning. Suggest checking one tomorrow. Will speak with RT about weaning process. Guarded prognosis 04/19/21: Will give lasix 40 IV today. Chemistry is ok. Order placed to RT for more aggressive weaning. Still no documentation of proning or refusal. 04/18/21: will give 20 of lasix IV x1 today. Please check BMP in am. Continue with steroids. Will speak with nursing about proning order and proper documentation if patient is refusing. 04/17/21: Please document if patient is proning or refusing to do so. COntinue IV steroids with solumedrol. Wean FiO2 for sats >88%. May consider some lasix therapy tomorrow. Not a candidate for Actemra 1. Suggest increasing steroids to either BID dosing on Dex or Solumedrol 40q8 2. Prone as tolerated during the day and sleep prone at night 3. Should be a candidate for Remdesivir. Not sure about actemra. From what I can find out, his oxygen was only increased for dyspnea not for desaturation so not sure if this qualifies him. 4. Suggest fluid restriction 5. Guarded prognosis given diagnosis and obesity. Subjective Date of service: 04/23/21 Interval history: No acute events. Still on venti but at 12 now. Still with sats in the high 90's. Objective Vital Signs - 12hr 04/23/21 04/23/21 05:33 08:16 Temperature 97.3 F L Pulse Rate 65 Respiratory 18 20 Rate Blood Pressure 136/75 O2 Sat by Pulse 100 96 Oximetry CBC and BMP: 04/17/21 04:27 04/22/21 00:22 ABG, PT/INR, D-dimer: ABG ABG pH 7.387 (7.320-7.450) 04/16/21 14:32 POC ABG pCO2 38.6 mmHg (32.0-48.0) 04/16/21 14:32 POC ABG pO2 79.1 mmHg (83-108) L 04/16/21 14:32 POC ABG HCO3 22.7 04/16/21 14:32 ABG O2 Saturation 95.9 (0-100) 04/16/21 14:32 PT/INR, D-dimer D-Dimer 339.80 ng/mlDDU (0-234) H 04/17/21 04:27 Abnormal lab findings: Abnormal Labs 04/13/21 04/13/21 04/13/21 23:02 23:02 23:02 WBC RBC 5.09 H MCV 81 L MCH 26 L MCHC RDW Lymph % (Auto) Lymph # (Auto) 1.0 L Seg Neutrophils % 79.5 H Seg Neuts % (Manual) Seg Neutrophils # Seg Neutrophils # Man Lymphocytes # (Manual) D-Dimer 440.91 H POC ABG pO2 ABG Chloride ABG Glucose Carboxyhemoglobin Sodium Chloride Carbon Dioxide BUN Creatinine 2.1 H Glucose 123 H POC Glucose Ferritin AST 48 H Lactate Dehydrogenase C-Reactive Protein Total Protein Albumin 3.4 L Arterial Blood Glucose Coronavirus (PCR) 04/13/21 04/13/21 04/14/21 23:02 23:02 08:46 WBC RBC MCV MCH MCHC RDW Lymph % (Auto) Lymph # (Auto) Seg Neutrophils % Seg Neuts % (Manual) Seg Neutrophils # Seg Neutrophils # Man Lymphocytes # (Manual) D-Dimer POC ABG pO2 ABG Chloride ABG Glucose Carboxyhemoglobin Sodium Chloride Carbon Dioxide BUN Creatinine Glucose 124 H POC Glucose Ferritin 519.6 H AST Lactate Dehydrogenase 439 H C-Reactive Protein 2.50 H Total Protein Albumin Arterial Blood Glucose Coronavirus (PCR) Positive A 04/15/21 04/15/21 04/16/21 07:38 07:38 09:32 WBC 13.5 H RBC 5.44 H MCV 82 L MCH 26 L MCHC RDW 15.3 H Lymph % (Auto) 6.8 L Lymph # (Auto) 0.9 L Seg Neutrophils % 88.2 H Seg Neuts % (Manual) Seg Neutrophils # 11.9 H Seg Neutrophils # Man Lymphocytes # (Manual) D-Dimer POC ABG pO2 ABG Chloride ABG Glucose Carboxyhemoglobin Sodium Chloride 108.8 H Carbon Dioxide 20 L 20 L BUN Creatinine Glucose 137 H 153 H POC Glucose Ferritin AST 47 H 61 H Lactate Dehydrogenase C-Reactive Protein Total Protein 8.3 H 6.2 L D Albumin 3.8 L 3.1 L Arterial Blood Glucose Coronavirus (PCR) 04/16/21 04/17/21 04/17/21 14:32 04:27 04:27 WBC 14.0 H RBC 5.55 H MCV 81 L MCH 25 L MCHC 31 L RDW Lymph % (Auto) Lymph # (Auto) Seg Neutrophils % Seg Neuts % (Manual) 91.0 H Seg Neutrophils # Seg Neutrophils # Man 12.7 H Lymphocytes # (Manual) 0.0 L D-Dimer POC ABG pO2 79.1 L ABG Chloride 108.0 H ABG Glucose 142 H Carboxyhemoglobin 0.1 L Sodium Chloride 107.8 H Carbon Dioxide 20 L BUN Creatinine Glucose 150 H POC Glucose Ferritin AST 47 H Lactate Dehydrogenase C-Reactive Protein Total Protein Albumin 2.8 L Arterial Blood Glucose 142 H Coronavirus (PCR) 04/17/21 04/18/21 04/18/21 04:27 04:42 04:43 WBC RBC MCV MCH MCHC RDW Lymph % (Auto) Lymph # (Auto) Seg Neutrophils % Seg Neuts % (Manual) Seg Neutrophils # Seg Neutrophils # Man Lymphocytes # (Manual) D-Dimer 339.80 H POC ABG pO2 ABG Chloride ABG Glucose Carboxyhemoglobin Sodium 147 H Chloride 111.3 H Carbon Dioxide 21 L BUN Creatinine Glucose 151 H POC Glucose Ferritin AST Lactate Dehydrogenase C-Reactive Protein 1.40 H Total Protein Albumin 3.1 L Arterial Blood Glucose Coronavirus (PCR) 04/19/21 04/22/21 23:32 00:22 WBC RBC MCV MCH MCHC RDW Lymph % (Auto) Lymph # (Auto) Seg Neutrophils % Seg Neuts % (Manual) Seg Neutrophils # Seg Neutrophils # Man Lymphocytes # (Manual) D-Dimer POC ABG pO2 ABG Chloride ABG Glucose Carboxyhemoglobin Sodium Chloride Carbon Dioxide BUN 26 H Creatinine Glucose 173 H POC Glucose 171 H Ferritin AST Lactate Dehydrogenase C-Reactive Protein Total Protein Albumin Arterial Blood Glucose Coronavirus (PCR)
[2021-04-23] MEDS ORDERED: FUROSEMIDE 20 MG/2 ML INJ IV ONE ×2 (12:00→15:00)
--- NOTE | 2021-04-23 13:33 | Progress Note ---
Assessment and Plan Assessment and plan: #Acute hypoxic respiratory failure #COVID-19 pneumonia -Completed remdesivir; continue empiric steroids for 10 days per infectious disease -Completed empiric azithromycin and Rocephin -Infectious disease consulted; appreciate recs -Wean oxygen as tolerated. Continue contact and droplet isolation -Pulmonology consulted; appreciate recs. Receiving IV Lasix 40 mg x 1 per pulmonology. -Continue albuterol nebs as needed -Continue to monitor #Elevated D-dimer -D-dimer 440 -CTA chest negative for pulmonary embolism. Likely secondary to Covid pneumonia #Bronchial asthma -No significant exacerbation noted during hospitalization -Continue proair inhaler with 2 puffs 4 times daily #OPHELIA-resolved -Etiology unknown. -Creatinine 1.0 (presented with creatinine 2.1) -Avoid nephrotoxic medications. Continue to monitor. #Syncope and in the ED bathroom -Likely secondary to vasovagal from dehydration, hypoxia, and exertional pulmonary decompensation #Anxiety #Insomnia -continue Ativan as needed and Ambien as needed #Morbid obesity #Weight loss counseling #Exercise counseling -BMI 44 -Counseled patient about importance of overall weight loss, dietary changes, and incorporating exercise. Patient expressed understanding. -Time: +15 minutes #Advanced care planning -Disease education conducted, care plan discussed, diagnoses discussed, prognosis discussed, and patient acknowledges understanding with care plan -Time: +30 minutes Disposition Plan: Continue medical management Total Time Spent with Patient (Minutes): 45 minutes History Interval history: No acute events overnight. Hospitalist Physical - Constitutional Vitals: Temp Pulse Resp BP Pulse Ox 97.8 F 58 L 18 128/71 97 04/23/21 11:03 04/23/21 11:03 04/23/21 11:03 04/23/21 11:03 04/23/21 11:03 General appearance: Present: no acute distress, well-nourished, obese (Morbid obesity BMI 44) - EENT Eyes: Present: PERRL, EOM intact ENT: hearing intact, clear oral mucosa - Neck Neck: Present: supple, normal ROM - Respiratory Respiratory effort: normal Respiratory: negative: diminished (On high flow nasal cannula 15 L) - Cardiovascular Rhythm: regular Heart Sounds: Present: S1 & S2 - Extremities Extremities: no ischemia, pulses intact, pulses symmetrical, normal temperature, normal color, Full ROM Peripheral Pulses: within normal limits - Abdominal General gastrointestinal: soft, non-tender, non-distended, normal bowel sounds - Integumentary Integumentary: Present: clear, warm, dry - Psychiatric Psychiatric: appropriate mood/affect, intact judgment & insight, memory intact - Neurologic Neurologic: CNII-XII intact - Allied Health Allied health notes reviewed: nursing HEART Score - HEART Score Troponin: Troponin T < 0.010 ng/mL (0.00-0.029) 04/13/21 23:02 Results - Labs CBC & Chem 7: 04/17/21 04:27 04/22/21 00:22 Labs: Laboratory Last Values WBC 14.0 K/mm3 (4.5-11.0) H 04/17/21 04:27 RBC 5.55 M/mm3 (3.65-5.03) H 04/17/21 04:27 Hgb 13.9 gm/dl (11.8-15.2) 04/17/21 04:27 Hct 45.0 % (35.5-45.6) 04/17/21 04:27 MCV 81 fl (84-94) L 04/17/21 04:27 MCH 25 pg (28-32) L 04/17/21 04:27 MCHC 31 % (32-34) L 04/17/21 04:27 RDW 15.1 % (13.2-15.2) 04/17/21 04:27 Plt Count 345 K/mm3 (140-440) 04/17/21 04:27 Lymph % (Auto) 6.8 % (13.4-35.0) L 04/15/21 07:38 Robertson % (Auto) 4.2 % (0.0-7.3) 04/15/21 07:38 Eos % (Auto) 0.0 % (0.0-4.3) 04/15/21 07:38 Baso % (Auto) 0.8 % (0.0-1.8) 04/15/21 07:38 Lymph # (Auto) 0.9 K/mm3 (1.2-5.4) L 04/15/21 07:38 Robertson # (Auto) 0.6 K/mm3 (0.0-0.8) 04/15/21 07:38 Eos # (Auto) 0.0 K/mm3 (0.0-0.4) 04/15/21 07:38 Baso # (Auto) 0.1 K/mm3 (0.0-0.1) 04/15/21 07:38 Add Manual Diff Complete 04/17/21 04:27 Total Counted 100 04/17/21 04:27 Seg Neutrophils % 88.2 % (40.0-70.0) H 04/15/21 07:38 Seg Neuts % (Manual) 91.0 % (40.0-70.0) H 04/17/21 04:27 Reactive Lymphs % (Man) 1.0 % 04/17/21 04:27 Monocytes % (Manual) 6.0 % (0.0-7.3) 04/17/21 04:27 Metamyelocytes % 1.0 % 04/17/21 04:27 Myelocytes % 1.0 % 04/17/21 04:27 Nucleated RBC % Not Reportable 04/17/21 04:27 Seg Neutrophils # 11.9 K/mm3 (1.8-7.7) H 04/15/21 07:38 Seg Neutrophils # Man 12.7 K/mm3 (1.8-7.7) H 04/17/21 04:27 Band Neutrophils # 0.0 K/mm3 04/17/21 04:27 Lymphocytes # (Manual) 0.0 K/mm3 (1.2-5.4) L 04/17/21 04:27 Abs React Lymphs (Man) 0.1 K/mm3 04/17/21 04:27 Monocytes # (Manual) 0.8 K/mm3 (0.0-0.8) 04/17/21 04:27 Eosinophils # (Manual) 0.0 K/mm3 (0.0-0.4) 04/17/21 04:27 Basophils # (Manual) 0.0 K/mm3 (0.0-0.1) 04/17/21 04:27 Metamyelocytes # 0.1 K/mm3 04/17/21 04:27 Myelocytes # 0.1 K/mm3 04/17/21 04:27 Promyelocytes # 0.0 K/mm3 04/17/21 04:27 Blast Cells # 0.0 K/mm3 04/17/21 04:27 WBC Morphology Not Reportable 04/17/21 04:27 Hypersegmented Neuts Not Reportable 04/17/21 04:27 Hyposegmented Neuts Not Reportable 04/17/21 04:27 Hypogranular Neuts Not Reportable 04/17/21 04:27 Smudge Cells Not Reportable 04/17/21 04:27 Toxic Granulation Not Reportable 04/17/21 04:27 Toxic Vacuolation Not Reportable 04/17/21 04:27 Dohle Bodies Not Reportable 04/17/21 04:27 Pelger-Huet Anomaly Not Reportable 04/17/21 04:27 Mauricio Rods Not Reportable 04/17/21 04:27 Platelet Estimate Consistent w auto 04/17/21 04:27 Clumped Platelets Rare 04/17/21 04:27 Plt Clumps, EDTA Not Reportable 04/17/21 04:27 Large Platelets Not Reportable 04/17/21 04:27 Giant Platelets Not Reportable 04/17/21 04:27 Platelet Satelliting Not Reportable 04/17/21 04:27 Plt Morphology Comment Not Reportable 04/17/21 04:27 RBC Morphology Not Reportable 04/17/21 04:27 Dimorphic RBCs Not Reportable 04/17/21 04:27 Polychromasia Not Reportable 04/17/21 04:27 Hypochromasia Few 04/17/21 04:27 Poikilocytosis Not Reportable 04/17/21 04:27 Anisocytosis Not Reportable 04/17/21 04:27 Microcytosis Not Reportable 04/17/21 04:27 Macrocytosis Not Reportable 04/17/21 04:27 Spherocytes Not Reportable 04/17/21 04:27 Pappenheimer Bodies Not Reportable 04/17/21 04:27 Sickle Cells Not Reportable 04/17/21 04:27 Target Cells Not Reportable 04/17/21 04:27 Tear Drop Cells Not Reportable 04/17/21 04:27 Ovalocytes Not Reportable 04/17/21 04:27 Helmet Cells Not Reportable 04/17/21 04:27 [place] Bodies Not Reportable 04/17/21 04:27 [place] Rings Not Reportable 04/17/21 04:27 Michele Cells Not Reportable 04/17/21 04:27 Bite Cells Not Reportable 04/17/21 04:27 Crenated Cell Not Reportable 04/17/21 04:27 Elliptocytes Not Reportable 04/17/21 04:27 Acanthocytes (Spur) Not Reportable 04/17/21 04:27 Rouleaux Not Reportable 04/17/21 04:27 Hemoglobin C Crystals Not Reportable 04/17/21 04:27 Schistocytes Not Reportable 04/17/21 04:27 Malaria parasites Not Reportable 04/17/21 04:27 Jona Bodies Not Reportable 04/17/21 04:27 Hem Pathologist Commnt No 04/17/21 04:27 D-Dimer 339.80 ng/mlDDU (0-234) H 04/17/21 04:27 ABG pH 7.387 (7.320-7.450) 04/16/21 14:32 POC ABG pCO2 38.6 mmHg (32.0-48.0) 04/16/21 14:32 POC ABG pO2 79.1 mmHg (83-108) L 04/16/21 14:32 POC ABG HCO3 22.7 04/16/21 14:32 ABG O2 Saturation 95.9 (0-100) 04/16/21 14:32 POC ABG Base Excess -2.0 04/16/21 14:32 ABG Hemoglobin 13.8 (12.0-17.5) 04/16/21 14:32 ABG Oxyhemoglobin 95.5 (94-98) 04/16/21 14:32 ABG Methemoglobin 0.3 (0.0-1.5) 04/16/21 14:32 ABG Sodium 139.8 mmol/L (136.0-145.0) 04/16/21 14:32 ABG Potassium 4.2 mmol/L (3.40-4.50) 04/16/21 14:32 ABG Chloride 108.0 mmol/L (98-107) H 04/16/21 14:32 ABG Glucose 142 mg/dL (65-95) H 04/16/21 14:32 Carboxyhemoglobin 0.1 (0.5-1.5) L 04/16/21 14:32 FiO2 % 50.0 04/16/21 14:32 Sodium 138 mmol/L (137-145) D 04/22/21 00:22 Potassium 4.6 mmol/L (3.6-5.0) 04/22/21 00:22 Chloride 102.8 mmol/L (98-107) 04/22/21 00:22 Carbon Dioxide 24 mmol/L (22-30) 04/22/21 00:22 Anion Gap 16 mmol/L 04/22/21 00:22 BUN 26 mg/dL (9-20) H 04/22/21 00:22 Creatinine 1.0 mg/dL (0.8-1.3) 04/22/21 00:22 Estimated GFR > 60 ml/min 04/22/21 00:22 BUN/Creatinine Ratio 26 % 04/22/21 00:22 Glucose 173 mg/dL (75-100) H 04/22/21 00:22 POC Glucose 171 mg/dL (70-105) H 04/19/21 23:32 Lactic Acid 0.80 mmol/L (0.7-2.0) 04/14/21 04:24 Calcium 9.0 mg/dL (8.4-10.2) 04/22/21 00:22 Ferritin 519.6 ng/mL (30.0-300.0) H 04/13/21 23:02 Total Bilirubin 0.20 mg/dL (0.1-1.2) 04/18/21 04:43 AST 37 units/L (5-40) 04/18/21 04:43 ALT 37 units/L (7-56) 04/18/21 04:43 Alkaline Phosphatase 66 units/L (35-129) 04/18/21 04:43 Lactate Dehydrogenase 439 units/L (91-180) H 04/13/21 23:02 Troponin T < 0.010 ng/mL (0.00-0.029) 04/13/21 23:02 C-Reactive Protein 1.40 mg/dL (0.00-1.30) H 04/18/21 04:42 Total Protein 6.9 g/dL (6.3-8.2) 04/18/21 04:43 Albumin 3.1 g/dL (3.9-5) L 04/18/21 04:43 Albumin/Globulin Ratio 0.8 % 04/18/21 04:43 Procalcitonin 7.48 ng/mL (<0.15) 04/13/21 23:02 Arterial Blood Glucose 142 mg/dL (65-95) H 04/16/21 14:32 Arterial Blood Ionized Calcium 5.1 mg/dL (4.6-5.3) 04/16/21 14:32 Coronavirus (PCR) Positive (Negative) A 04/14/21 08:46 Tse/IV: Voiding Method Urinal Active Medications - Current Medications Current Medications: Generic Name Dose Route Start Last Admin Trade Name Freq PRN Reason Stop Dose Admin Acetaminophen 650 mg 04/14/21 04:31 04/23/21 05:45 Acetaminophen 325 Mg Tab PO 650 mg Q4H PRN Administration Pain MILD(1-3)/Fever >100.5/SHER Albuterol 2 puff 04/16/21 10:09 04/18/21 08:47 Albuterol 8.5 Gm Mdi Inhalation IH 2 inh Q4H PRN Administration Wheezing Ascorbic Acid 500 mg 04/14/21 10:00 04/23/21 09:29 Ascorbic Acid 500 Mg Tab PO 500 mg BID [facility] Administration Cholecalciferol 5,000 unit 04/14/21 10:00 04/23/21 09:29 Cholecalciferol (Vit D3) 5,000 Unit Tab PO 5,000 unit DAILY [facility] Administration Enoxaparin Sodium 40 mg 04/17/21 10:00 04/23/21 09:29 Enoxaparin 40 Mg/0.4 Ml Inj SUB-Q 40 mg BID [facility] Administration Famotidine 20 mg 04/17/21 10:00 04/23/21 09:29 Famotidine 20 Mg Tab PO 20 mg BID [facility] Administration Hydralazine HCl 10 mg 04/14/21 04:34 Hydralazine 20 Mg/1 Ml Inj IV Q6H PRN Blood Pressure Lorazepam 1 mg 04/15/21 19:00 04/23/21 09:29 Lorazepam 1 Mg Tab PO 1 mg BID [facility] Administration Methylprednisolone Sodium Succinate 40 mg 04/15/21 09:00 04/23/21 05:24 Methylprednisolone Sod Succinate 40 Mg/1 Ml Inj IV 40 mg Q8HR [facility] Administration Ondansetron HCl 4 mg 04/14/21 04:31 04/18/21 07:04 Ondansetron 4 Mg/2 Ml Inj IV 4 mg Q8H PRN Administration Nausea And Vomiting Sodium Chloride 10 ml 04/14/21 10:00 04/23/21 09:30 Sodium Chloride 0.9% 10 Ml Flush Syringe IV 10 ml BID MECRY Administration Sodium Chloride 10 ml 04/14/21 04:31 Sodium Chloride 0.9% 10 Ml Flush Syringe IV PRN PRN LINE FLUSH Zinc Sulfate 220 mg 04/14/21 10:00 04/23/21 09:29 Zinc Sulfate 220 Mg Cap PO 220 mg BID [facility] Administration Zolpidem Tartrate 10 mg 04/15/21 18:24 Zolpidem 5 Mg Tab PO QHS PRN Sleep Nutrition/Malnutrition Assess - Dietary Evaluation Nutrition/Malnutrition Findings: Nutrition Notes Start: 04/23/21 11:39 Freq: Status: Active Protocol: Document 04/23/21 11:40 MISSY (Rec: 04/23/21 11:43 [email or web address] [id number]) Nutrition Notes Need for Assessment generated from: LOS Initial or Follow up Brief Note Other Pertinent Diagnosis COVID-19 pneu Current Diet Cardiac Subjective/Other Information Pt screened for LOS. He has consumed 100% of meals since 04/19. He refused meals when first admitted. Minimum of two criteria No Nutrition Intervention Follow-Up By: 04/30/21 Additional Comments F/U: stable intakes
[2021-04-24] MEDS: methylPREDNISolone Sod Succinate 40 MG/1 ML INJ IV SCH ×3 (05:53→22:18)
[2021-04-24 06:22] LABS: Mean Corpuscular HGB Conc 31 % (32-34); Mean Corpuscular Volume 82 fl (84-94); Platelet Count 535 K/mm3 (140-440); Red Blood Count 5.53 M/mm3 (3.65-5.03); Red Cell Distribution Width 15.5 % (13.2-15.2)
[2021-04-24 06:26] LABS: Hemoglobin 13.8 gm/dl (11.8-15.2)
[2021-04-24 06:27] LABS: Hematocrit 45.2 % (35.5-45.6)
[2021-04-24 06:31] LABS: BUN/Creatinine Ratio 26; Blood Urea Nitrogen 29 mg/dL (9-20); Calcium 9.4 mg/dL (8.4-10.2); Hemolysis Index 13
[2021-04-24 07:27] LABS: Total Cells Counted 100
[2021-04-24 07:36] LABS: Band Neutrophils # (Manual) 0.2 K/mm3; Myelocytes # (Manual) 0.4 K/mm3; Promyelocytes # (Manual) 0.2 K/mm3
[2021-04-24 07:40] LABS: Hypochromasia Few
[2021-04-24 07:41] LABS: Anisocytosis 1+; Large Platelets 1+; Platelet Estimate Consistent w Auto
--- NOTE | 2021-04-24 11:30 | Progress Note ---
Assessment and Plan 31 y/o male with acute respiratory failure secondary to COVID pneumonia. 04/24/21: Continue steroids. Will do lasix again today. Weight loss. Steroids for 10 days. May need prolonged taper given patient body habitus. 04/23/21: Suggest lasix today. Please continue to wean FiO2 and encourage proning. Weight loss. Steroids for 10 says. 04/20/21: Hold on lasix today. No chemistry checked yesterday or this morning. Suggest checking one tomorrow. Will speak with RT about weaning process. Guarded prognosis 04/19/21: Will give lasix 40 IV today. Chemistry is ok. Order placed to RT for more aggressive weaning. Still no documentation of proning or refusal. 04/18/21: will give 20 of lasix IV x1 today. Please check BMP in am. Continue with steroids. Will speak with nursing about proning order and proper documentation if patient is refusing. 04/17/21: Please document if patient is proning or refusing to do so. COntinue IV steroids with solumedrol. Wean FiO2 for sats >88%. May consider some lasix therapy tomorrow. Not a candidate for Actemra 1. Suggest increasing steroids to either BID dosing on Dex or Solumedrol 40q8 2. Prone as tolerated during the day and sleep prone at night 3. Should be a candidate for Remdesivir. Not sure about actemra. From what I can find out, his oxygen was only increased for dyspnea not for desaturation so not sure if this qualifies him. 4. Suggest fluid restriction 5. Guarded prognosis given diagnosis and obesity. Subjective Date of service: 04/24/21 Interval history: no acute events. still on venti mask but sats are very very good. Objective Vital Signs - 12hr 04/23/21 04/24/21 04/24/21 23:46 10:00 10:31 Temperature 97.6 F Pulse Rate 66 Respiratory 18 19 Rate Blood Pressure 134/69 [Left] O2 Sat by Pulse 95 96 Oximetry CBC and BMP: 04/24/21 04:44 04/24/21 04:44 ABG, PT/INR, D-dimer: ABG ABG pH 7.387 (7.320-7.450) 04/16/21 14:32 POC ABG pCO2 38.6 mmHg (32.0-48.0) 04/16/21 14:32 POC ABG pO2 79.1 mmHg (83-108) L 04/16/21 14:32 POC ABG HCO3 22.7 04/16/21 14:32 ABG O2 Saturation 95.9 (0-100) 04/16/21 14:32 PT/INR, D-dimer D-Dimer 339.80 ng/mlDDU (0-234) H 04/17/21 04:27 Abnormal lab findings: Abnormal Labs 04/13/21 04/13/21 04/13/21 23:02 23:02 23:02 WBC RBC 5.09 H MCV 81 L MCH 26 L MCHC RDW Plt Count Lymph % (Auto) Lymph # (Auto) 1.0 L Seg Neutrophils % 79.5 H Seg Neuts % (Manual) Lymphocytes % (Manual) Seg Neutrophils # Seg Neutrophils # Man Lymphocytes # (Manual) D-Dimer 440.91 H POC ABG pO2 ABG Chloride ABG Glucose Carboxyhemoglobin Sodium Chloride Carbon Dioxide BUN Creatinine 2.1 H Glucose 123 H POC Glucose Ferritin AST 48 H Lactate Dehydrogenase C-Reactive Protein Total Protein Albumin 3.4 L Arterial Blood Glucose Coronavirus (PCR) 04/13/21 04/13/21 04/14/21 23:02 23:02 08:46 WBC RBC MCV MCH MCHC RDW Plt Count Lymph % (Auto) Lymph # (Auto) Seg Neutrophils % Seg Neuts % (Manual) Lymphocytes % (Manual) Seg Neutrophils # Seg Neutrophils # Man Lymphocytes # (Manual) D-Dimer POC ABG pO2 ABG Chloride ABG Glucose Carboxyhemoglobin Sodium Chloride Carbon Dioxide BUN Creatinine Glucose 124 H POC Glucose Ferritin 519.6 H AST Lactate Dehydrogenase 439 H C-Reactive Protein 2.50 H Total Protein Albumin Arterial Blood Glucose Coronavirus (PCR) Positive A 04/15/21 04/15/21 04/16/21 07:38 07:38 09:32 WBC 13.5 H RBC 5.44 H MCV 82 L MCH 26 L MCHC RDW 15.3 H Plt Count Lymph % (Auto) 6.8 L Lymph # (Auto) 0.9 L Seg Neutrophils % 88.2 H Seg Neuts % (Manual) Lymphocytes % (Manual) Seg Neutrophils # 11.9 H Seg Neutrophils # Man Lymphocytes # (Manual) D-Dimer POC ABG pO2 ABG Chloride ABG Glucose Carboxyhemoglobin Sodium Chloride 108.8 H Carbon Dioxide 20 L 20 L BUN Creatinine Glucose 137 H 153 H POC Glucose Ferritin AST 47 H 61 H Lactate Dehydrogenase C-Reactive Protein Total Protein 8.3 H 6.2 L D Albumin 3.8 L 3.1 L Arterial Blood Glucose Coronavirus (PCR) 04/16/21 04/17/21 04/17/21 14:32 04:27 04:27 WBC 14.0 H RBC 5.55 H MCV 81 L MCH 25 L MCHC 31 L RDW Plt Count Lymph % (Auto) Lymph # (Auto) Seg Neutrophils % Seg Neuts % (Manual) 91.0 H Lymphocytes % (Manual) Seg Neutrophils # Seg Neutrophils # Man 12.7 H Lymphocytes # (Manual) 0.0 L D-Dimer POC ABG pO2 79.1 L ABG Chloride 108.0 H ABG Glucose 142 H Carboxyhemoglobin 0.1 L Sodium Chloride 107.8 H Carbon Dioxide 20 L BUN Creatinine Glucose 150 H POC Glucose Ferritin AST 47 H Lactate Dehydrogenase C-Reactive Protein Total Protein Albumin 2.8 L Arterial Blood Glucose 142 H Coronavirus (PCR) 04/17/21 04/18/21 04/18/21 04:27 04:42 04:43 WBC RBC MCV MCH MCHC RDW Plt Count Lymph % (Auto) Lymph # (Auto) Seg Neutrophils % Seg Neuts % (Manual) Lymphocytes % (Manual) Seg Neutrophils # Seg Neutrophils # Man Lymphocytes # (Manual) D-Dimer 339.80 H POC ABG pO2 ABG Chloride ABG Glucose Carboxyhemoglobin Sodium 147 H Chloride 111.3 H Carbon Dioxide 21 L BUN Creatinine Glucose 151 H POC Glucose Ferritin AST Lactate Dehydrogenase C-Reactive Protein 1.40 H Total Protein Albumin 3.1 L Arterial Blood Glucose Coronavirus (PCR) 04/19/21 04/22/21 04/24/21 23:32 00:22 04:44 WBC 18.9 H RBC 5.53 H MCV 82 L MCH 25 L MCHC 31 L RDW 15.5 H Plt Count 535 H Lymph % (Auto) Lymph # (Auto) Seg Neutrophils % Seg Neuts % (Manual) 91.0 H Lymphocytes % (Manual) 3.0 L Seg Neutrophils # Seg Neutrophils # Man 17.2 H Lymphocytes # (Manual) 0.6 L D-Dimer POC ABG pO2 ABG Chloride ABG Glucose Carboxyhemoglobin Sodium Chloride Carbon Dioxide BUN 26 H Creatinine Glucose 173 H POC Glucose 171 H Ferritin AST Lactate Dehydrogenase C-Reactive Protein Total Protein Albumin Arterial Blood Glucose Coronavirus (PCR) 04/24/21 04:44 WBC RBC MCV MCH MCHC RDW Plt Count Lymph % (Auto) Lymph # (Auto) Seg Neutrophils % Seg Neuts % (Manual) Lymphocytes % (Manual) Seg Neutrophils # Seg Neutrophils # Man Lymphocytes # (Manual) D-Dimer POC ABG pO2 ABG Chloride ABG Glucose Carboxyhemoglobin Sodium Chloride Carbon Dioxide BUN 29 H Creatinine Glucose 128 H POC Glucose Ferritin AST Lactate Dehydrogenase C-Reactive Protein Total Protein Albumin Arterial Blood Glucose Coronavirus (PCR)
[2021-04-24] MEDS: ENOXAPARIN 40 MG/0.4 ML INJ SUB-Q SCH ×2 (11:51→22:17)
[2021-04-24] MEDS: FAMOTIDINE 20 MG TAB PO SCH ×2 (11:57→22:17)
[2021-04-24] MEDS: LORazepam 1 MG TAB PO SCH ×2 (11:57→22:17)
[2021-04-24] MEDS: CHOLECALCIFEROL (VIT D3) 5,000 UNIT TAB PO SCH (11:58)
[2021-04-24] MEDS: ASCORBIC ACID 500 MG TAB PO SCH ×2 (11:58→22:17)
[2021-04-24] MEDS: ZINC SULFATE 220 MG CAP PO SCH ×2 (11:58→22:17)
--- NOTE | 2021-04-24 14:58 | Progress Note ---
Assessment and Plan Assessment and plan: #Acute hypoxic respiratory failure #COVID-19 pneumonia -Completed remdesivir; continue empiric steroids for 10 days per infectious disease -Completed empiric azithromycin and Rocephin -Infectious disease consulted; appreciate recs -Currently on high flow nasal cannula 10 L. Wean oxygen as tolerated. Continue contact and droplet isolation -Pulmonology consulted; appreciate recs. Receiving IV Lasix 40 mg x 1 per pulmonology. -Continue albuterol nebs as needed -Continue to monitor #Elevated D-dimer -D-dimer 440 -CTA chest negative for pulmonary embolism. Likely secondary to Covid pneumonia #Bronchial asthma -No significant exacerbation noted during hospitalization -Continue proair inhaler with 2 puffs 4 times daily #OPHELIA-resolved -Etiology unknown. -Creatinine 1.0 (presented with creatinine 2.1) -Avoid nephrotoxic medications. Continue to monitor. #Syncope and in the ED bathroom -Likely secondary to vasovagal from dehydration, hypoxia, and exertional pulmonary decompensation #Anxiety #Insomnia -continue Ativan as needed and Ambien as needed #Morbid obesity #Weight loss counseling #Exercise counseling -BMI 44 -Counseled patient about importance of overall weight loss, dietary changes, and incorporating exercise. Patient expressed understanding. -Time: +15 minutes #Advanced care planning -Disease education conducted, care plan discussed, diagnoses discussed, prognosis discussed, and patient acknowledges understanding with care plan -Time: +30 minutes #Discharge planning 1 patient requires <4 L nasal cannula (even with exertion) patient will be safe for discharge home. Disposition Plan: Continue medical management Total Time Spent with Patient (Minutes): 45 minutes History Interval history: No acute events overnight. Hospitalist Physical - Constitutional Vitals: Temp Pulse Resp BP Pulse Ox 97.6 F 66 19 134/69 96 04/24/21 10:31 04/24/21 10:31 04/24/21 10:31 04/24/21 10:31 04/24/21 10:31 General appearance: Present: no acute distress, well-nourished, obese (Morbid obesity BMI 44) - EENT Eyes: Present: PERRL, EOM intact ENT: hearing intact, clear oral mucosa, dentition normal - Neck Neck: Present: supple, normal ROM - Respiratory Respiratory effort: normal Respiratory: bilateral: diminished - Cardiovascular Rhythm: regular Heart Sounds: Present: S1 & S2 - Extremities Extremities: no ischemia, pulses intact, pulses symmetrical, No edema, normal temperature, normal color, Full ROM Peripheral Pulses: within normal limits - Abdominal General gastrointestinal: soft, non-tender, non-distended, normal bowel sounds - Integumentary Integumentary: Present: clear, warm, dry - Psychiatric Psychiatric: appropriate mood/affect, intact judgment & insight, memory intact, cooperative - Neurologic Neurologic: CNII-XII intact, moves all extremities - Allied Health Allied health notes reviewed: nursing HEART Score - HEART Score Troponin: Troponin T < 0.010 ng/mL (0.00-0.029) 04/13/21 23:02 Results - Labs CBC & Chem 7: 04/24/21 04:44 04/24/21 04:44 Labs: Laboratory Last Values WBC 18.9 K/mm3 (4.5-11.0) H 04/24/21 04:44 RBC 5.53 M/mm3 (3.65-5.03) H 04/24/21 04:44 Hgb 13.8 gm/dl (11.8-15.2) 04/24/21 04:44 Hct 45.2 % (35.5-45.6) 04/24/21 04:44 MCV 82 fl (84-94) L 04/24/21 04:44 MCH 25 pg (28-32) L 04/24/21 04:44 MCHC 31 % (32-34) L 04/24/21 04:44 RDW 15.5 % (13.2-15.2) H 04/24/21 04:44 Plt Count 535 K/mm3 (140-440) H 04/24/21 04:44 Lymph % (Auto) 6.8 % (13.4-35.0) L 04/15/21 07:38 [place] % (Auto) 4.2 % (0.0-7.3) 04/15/21 07:38 Eos % (Auto) 0.0 % (0.0-4.3) 04/15/21 07:38 Baso % (Auto) 0.8 % (0.0-1.8) 04/15/21 07:38 Lymph # (Auto) 0.9 K/mm3 (1.2-5.4) L 04/15/21 07:38 [place] # (Auto) 0.6 K/mm3 (0.0-0.8) 04/15/21 07:38 Eos # (Auto) 0.0 K/mm3 (0.0-0.4) 04/15/21 07:38 Baso # (Auto) 0.1 K/mm3 (0.0-0.1) 04/15/21 07:38 Add Manual Diff Complete 04/24/21 04:44 Total Counted 100 04/24/21 04:44 Seg Neutrophils % 88.2 % (40.0-70.0) H 04/15/21 07:38 Seg Neuts % (Manual) 91.0 % (40.0-70.0) H 04/24/21 04:44 Band Neutrophils % 1.0 % 04/24/21 04:44 Lymphocytes % (Manual) 3.0 % (13.4-35.0) L 04/24/21 04:44 Reactive Lymphs % (Man) 1.0 % 04/17/21 04:27 Monocytes % (Manual) 2.0 % (0.0-7.3) 04/24/21 04:44 Metamyelocytes % 1.0 % 04/17/21 04:27 Myelocytes % 2.0 % 04/24/21 04:44 Promyelocytes % 1.0 % 04/24/21 04:44 Nucleated RBC % Not Reportable 04/24/21 04:44 Seg Neutrophils # 11.9 K/mm3 (1.8-7.7) H 04/15/21 07:38 Seg Neutrophils # Man 17.2 K/mm3 (1.8-7.7) H 04/24/21 04:44 Band Neutrophils # 0.2 K/mm3 04/24/21 04:44 Lymphocytes # (Manual) 0.6 K/mm3 (1.2-5.4) L 04/24/21 04:44 Abs React Lymphs (Man) 0.0 K/mm3 04/24/21 04:44 Monocytes # (Manual) 0.4 K/mm3 (0.0-0.8) 04/24/21 04:44 Eosinophils # (Manual) 0.0 K/mm3 (0.0-0.4) 04/24/21 04:44 Basophils # (Manual) 0.0 K/mm3 (0.0-0.1) 04/24/21 04:44 Metamyelocytes # 0.0 K/mm3 04/24/21 04:44 Myelocytes # 0.4 K/mm3 04/24/21 04:44 Promyelocytes # 0.2 K/mm3 04/24/21 04:44 Blast Cells # 0.0 K/mm3 04/24/21 04:44 Pathologist Review 04/24/21 04:44 WBC Morphology Not Reportable 04/17/21 04:27 Hypersegmented Neuts Not Reportable 04/24/21 04:44 Hyposegmented Neuts Not Reportable 04/24/21 04:44 Hypogranular Neuts Not Reportable 04/24/21 04:44 Smudge Cells Not Reportable 04/24/21 04:44 Toxic Granulation Not Reportable 04/24/21 04:44 Toxic Vacuolation Not Reportable 04/24/21 04:44 Dohle Bodies Not Reportable 04/24/21 04:44 Pelger-Huet Anomaly Not Reportable 04/24/21 04:44 Mauricio Rods Not Reportable 04/24/21 04:44 Platelet Estimate Consistent w auto 04/24/21 04:44 Clumped Platelets Not Reportable 04/24/21 04:44 Plt Clumps, EDTA Not Reportable 04/24/21 04:44 Large Platelets 1+ 04/24/21 04:44 Giant Platelets Not Reportable 04/24/21 04:44 Platelet Satelliting Not Reportable 04/24/21 04:44 Plt Morphology Comment Not Reportable 04/24/21 04:44 RBC Morphology Not Reportable 04/24/21 04:44 Dimorphic RBCs Not Reportable 04/24/21 04:44 Polychromasia Not Reportable 04/24/21 04:44 Hypochromasia Few 04/24/21 04:44 Poikilocytosis Not Reportable 04/24/21 04:44 Anisocytosis 1+ 04/24/21 04:44 Microcytosis Not Reportable 04/24/21 04:44 Macrocytosis Not Reportable 04/24/21 04:44 Spherocytes Not Reportable 04/24/21 04:44 Pappenheimer Bodies Not Reportable 04/24/21 04:44 Sickle Cells Not Reportable 04/24/21 04:44 Target Cells Not Reportable 04/24/21 04:44 Tear Drop Cells Not Reportable 04/24/21 04:44 Ovalocytes Not Reportable 04/24/21 04:44 Helmet Cells Not Reportable 04/24/21 04:44 [place] Bodies Not Reportable 04/24/21 04:44 [place] Rings Not Reportable 04/24/21 04:44 [place] Cells Not Reportable 04/24/21 04:44 Bite Cells Not Reportable 04/24/21 04:44 Crenated Cell Not Reportable 04/24/21 04:44 Elliptocytes Few 04/24/21 04:44 Acanthocytes (Spur) Not Reportable 04/24/21 04:44 Rouleaux Not Reportable 04/24/21 04:44 Hemoglobin C Crystals Not Reportable 04/24/21 04:44 Schistocytes Not Reportable 04/24/21 04:44 Malaria parasites Not Reportable 04/24/21 04:44 [place]ona Bodies Not Reportable 04/24/21 04:44 Hem Pathologist Commnt Sent to pathology 04/24/21 04:44 D-Dimer 339.80 ng/mlDDU (0-234) H 04/17/21 04:27 ABG pH 7.387 (7.320-7.450) 04/16/21 14:32 POC ABG pCO2 38.6 mmHg (32.0-48.0) 04/16/21 14:32 POC ABG pO2 79.1 mmHg (83-108) L 04/16/21 14:32 POC ABG HCO3 22.7 04/16/21 14:32 ABG O2 Saturation 95.9 (0-100) 04/16/21 14:32 POC ABG Base Excess -2.0 04/16/21 14:32 ABG Hemoglobin 13.8 (12.0-17.5) 04/16/21 14:32 ABG Oxyhemoglobin 95.5 (94-98) 04/16/21 14:32 ABG Methemoglobin 0.3 (0.0-1.5) 04/16/21 14:32 ABG Sodium 139.8 mmol/L (136.0-145.0) 04/16/21 14:32 ABG Potassium 4.2 mmol/L (3.40-4.50) 04/16/21 14:32 ABG Chloride 108.0 mmol/L (98-107) H 04/16/21 14:32 ABG Glucose 142 mg/dL (65-95) H 04/16/21 14:32 Carboxyhemoglobin 0.1 (0.5-1.5) L 04/16/21 14:32 FiO2 % 50.0 04/16/21 14:32 Sodium 137 mmol/L (137-145) 04/24/21 04:44 Potassium 4.9 mmol/L (3.6-5.0) 04/24/21 04:44 Chloride 101.2 mmol/L (98-107) 04/24/21 04:44 Carbon Dioxide 26 mmol/L (22-30) 04/24/21 04:44 Anion Gap 15 mmol/L 04/24/21 04:44 BUN 29 mg/dL (9-20) H 04/24/21 04:44 Creatinine 1.1 mg/dL (0.8-1.3) 04/24/21 04:44 Estimated GFR > 60 ml/min 04/24/21 04:44 BUN/Creatinine Ratio 26 % 04/24/21 04:44 Glucose 128 mg/dL (75-100) H 04/24/21 04:44 POC Glucose 171 mg/dL (70-105) H 04/19/21 23:32 Lactic Acid 0.80 mmol/L (0.7-2.0) 04/14/21 04:24 Calcium 9.4 mg/dL (8.4-10.2) 04/24/21 04:44 Phosphorus 4.30 mg/dL (2.5-4.5) 04/24/21 04:44 Magnesium 2.30 mg/dL (1.7-2.3) 04/24/21 04:44 Ferritin 519.6 ng/mL (30.0-300.0) H 04/13/21 23:02 Total Bilirubin 0.20 mg/dL (0.1-1.2) 04/18/21 04:43 AST 37 units/L (5-40) 04/18/21 04:43 ALT 37 units/L (7-56) 04/18/21 04:43 Alkaline Phosphatase 66 units/L (35-129) 04/18/21 04:43 Lactate Dehydrogenase 439 units/L (91-180) H 04/13/21 23:02 Troponin T < 0.010 ng/mL (0.00-0.029) 04/13/21 23:02 C-Reactive Protein 1.40 mg/dL (0.00-1.30) H 04/18/21 04:42 Total Protein 6.9 g/dL (6.3-8.2) 04/18/21 04:43 Albumin 3.1 g/dL (3.9-5) L 04/18/21 04:43 Albumin/Globulin Ratio 0.8 % 04/18/21 04:43 Procalcitonin 7.48 ng/mL (<0.15) 04/13/21 23:02 Arterial Blood Glucose 142 mg/dL (65-95) H 04/16/21 14:32 Arterial Blood Ionized Calcium 5.1 mg/dL (4.6-5.3) 04/16/21 14:32 Coronavirus (PCR) Positive (Negative) A 04/14/21 08:46 Tse/IV: Voiding Method Urinal Active Medications - Current Medications Current Medications: Generic Name Dose Route Start Last Admin Trade Name Freq PRN Reason Stop Dose Admin Acetaminophen 650 mg 04/14/21 04:31 04/23/21 22:46 Acetaminophen 325 Mg Tab PO 650 mg Q4H PRN Administration Pain MILD(1-3)/Fever >100.5/SHER Albuterol 2 puff 04/16/21 10:09 04/18/21 08:47 Albuterol 8.5 Gm Mdi Inhalation IH 2 inh Q4H PRN Administration Wheezing Ascorbic Acid 500 mg 04/14/21 10:00 04/23/21 22:46 Ascorbic Acid 500 Mg Tab PO 500 mg BID [facility] Administration Cholecalciferol 5,000 unit 04/14/21 10:00 04/23/21 09:29 Cholecalciferol (Vit D3) 5,000 Unit Tab PO 5,000 unit DAILY [facility] Administration Enoxaparin Sodium 40 mg 04/17/21 10:00 04/23/21 22:48 Enoxaparin 40 Mg/0.4 Ml Inj SUB-Q 40 mg BID [facility] Administration Famotidine 20 mg 04/17/21 10:00 04/23/21 22:47 Famotidine 20 Mg Tab PO 20 mg BID [facility] Administration Hydralazine HCl 10 mg 04/14/21 04:34 Hydralazine 20 Mg/1 Ml Inj IV Q6H PRN Blood Pressure Lorazepam 1 mg 04/15/21 19:00 04/23/21 22:47 Lorazepam 1 Mg Tab PO 1 mg BID [facility] Administration Methylprednisolone Sodium Succinate 40 mg 04/15/21 09:00 04/24/21 05:53 Methylprednisolone Sod Succinate 40 Mg/1 Ml Inj IV 40 mg Q8HR [facility] Administration Ondansetron HCl 4 mg 04/14/21 04:31 04/18/21 07:04 Ondansetron 4 Mg/2 Ml Inj IV 4 mg Q8H PRN Administration Nausea And Vomiting Sodium Chloride 10 ml 04/14/21 10:00 04/23/21 22:47 Sodium Chloride 0.9% 10 Ml Flush Syringe IV 10 ml BID [facility] Administration Sodium Chloride 10 ml 04/14/21 04:31 Sodium Chloride 0.9% 10 Ml Flush Syringe IV PRN PRN LINE FLUSH Zinc Sulfate 220 mg 04/14/21 10:00 04/23/21 22:47 Zinc Sulfate 220 Mg Cap PO 220 mg BID [facility] Administration Zolpidem Tartrate 10 mg 04/15/21 18:24 Zolpidem 5 Mg Tab PO QHS PRN Sleep Nutrition/Malnutrition Assess - Dietary Evaluation Nutrition/Malnutrition Findings: Nutrition Notes Start: 04/23/21 11:39 Freq: Status: Active Protocol: Document 04/23/21 11:40 NHALL (Rec: 04/23/21 11:43 NHALL [id number]) Nutrition Notes Need for Assessment generated from: LOS Initial or Follow up Brief Note Other Pertinent Diagnosis COVID-19 pneu Current Diet Cardiac Subjective/Other Information Pt screened for LOS. He has consumed 100% of meals since 04/19. He refused meals when first admitted. Minimum of two criteria No Nutrition Intervention Follow-Up By: 04/30/21 Additional Comments F/U: stable intakes
[2021-04-25 06:08] LABS: Hematocrit 44.8 % (35.5-45.6); Hemoglobin 14.3 gm/dl (11.8-15.2); Mean Corpuscular HGB Conc 32 % (32-34); Mean Corpuscular Volume 82 fl (84-94); Platelet Count 543 K/mm3 (140-440); Red Blood Count 5.45 M/mm3 (3.65-5.03); Red Cell Distribution Width 14.8 % (13.2-15.2)
[2021-04-25] MEDS: methylPREDNISolone Sod Succinate 40 MG/1 ML INJ IV SCH (06:13)
[2021-04-25 06:40] LABS: BUN/Creatinine Ratio 24; Blood Urea Nitrogen 26 mg/dL (9-20); Calcium 9.5 mg/dL (8.4-10.2); Hemolysis Index 8
[2021-04-25] MEDS: LORazepam 1 MG TAB PO SCH (09:16)
[2021-04-25] MEDS: ASCORBIC ACID 500 MG TAB PO SCH (09:16)
[2021-04-25] MEDS: ZINC SULFATE 220 MG CAP PO SCH (09:16)
[2021-04-25] MEDS: CHOLECALCIFEROL (VIT D3) 5,000 UNIT TAB PO SCH (09:16)
[2021-04-25] MEDS: FAMOTIDINE 20 MG TAB PO SCH (09:16)
[2021-04-25] MEDS: ENOXAPARIN 40 MG/0.4 ML INJ SUB-Q SCH (09:16)
[2021-04-25 10:28] LABS: Anisocytosis 1+; Hypochromasia Few; Large Platelets Few; Myelocytes # (Manual) 0.2 K/mm3; Platelet Estimate Consistent w Auto; Promyelocytes # (Manual) 0.4 K/mm3; RBC Morphology Normal; Total Cells Counted 100
[2021-04-25] MEDS ORDERED: methylPREDNISolone Sod Succinate 40 MG/1 ML INJ IV SCH (12:00)
--- NOTE | 2021-04-25 12:01 | Progress Note ---
Assessment and Plan 31 y/o male with acute respiratory failure secondary to COVID pneumonia. 04/25/21: Steroids for ten days total. No lasix today. Weight loss. Hopeful discharge soon. Will sign off. 04/24/21: Continue steroids. Will do lasix again today. Weight loss. Steroids for 10 days. May need prolonged taper given patient body habitus. 04/23/21: Suggest lasix today. Please continue to wean FiO2 and encourage proning. Weight loss. Steroids for 10 says. 04/20/21: Hold on lasix today. No chemistry checked yesterday or this morning. Suggest checking one tomorrow. Will speak with RT about weaning process. Guarded prognosis 04/19/21: Will give lasix 40 IV today. Chemistry is ok. Order placed to RT for more aggressive weaning. Still no documentation of proning or refusal. 04/18/21: will give 20 of lasix IV x1 today. Please check BMP in am. Continue with steroids. Will speak with nursing about proning order and proper documentation if patient is refusing. 04/17/21: Please document if patient is proning or refusing to do so. COntinue IV steroids with solumedrol. Wean FiO2 for sats >88%. May consider some lasix therapy tomorrow. Not a candidate for Actemra 1. Suggest increasing steroids to either BID dosing on Dex or Solumedrol 40q8 2. Prone as tolerated during the day and sleep prone at night 3. Should be a candidate for Remdesivir. Not sure about actemra. From what I can find out, his oxygen was only increased for dyspnea not for desaturation so not sure if this qualifies him. 4. Suggest fluid restriction 5. Guarded prognosis given diagnosis and obesity. Subjective Date of service: 04/25/21 Interval history: Per chart, weaned to room air. No issues. Patient walked in room per nursing note and did not desat. Objective Vital Signs - 12hr 04/25/21 04/25/21 04:51 10:00 Temperature 97.3 F L Pulse Rate 75 Respiratory 20 Rate Blood Pressure 128/67 O2 Sat by Pulse 98 98 Oximetry CBC and BMP: 04/25/21 04:34 04/25/21 04:34 ABG, PT/INR, D-dimer: ABG ABG pH 7.387 (7.320-7.450) 04/16/21 14:32 POC ABG pCO2 38.6 mmHg (32.0-48.0) 04/16/21 14:32 POC ABG pO2 79.1 mmHg (83-108) L 04/16/21 14:32 POC ABG HCO3 22.7 04/16/21 14:32 ABG O2 Saturation 95.9 (0-100) 04/16/21 14:32 PT/INR, D-dimer D-Dimer < 135.00 ng/mlDDU (0-234) 04/25/21 04:34 Abnormal lab findings: Abnormal Labs 04/13/21 04/13/21 04/13/21 23:02 23:02 23:02 WBC RBC 5.09 H MCV 81 L MCH 26 L MCHC RDW Plt Count Lymph % (Auto) Lymph # (Auto) 1.0 L Seg Neutrophils % 79.5 H Seg Neuts % (Manual) Lymphocytes % (Manual) Seg Neutrophils # Seg Neutrophils # Man Lymphocytes # (Manual) Monocytes # (Manual) D-Dimer 440.91 H POC ABG pO2 ABG Chloride ABG Glucose Carboxyhemoglobin Sodium Chloride Carbon Dioxide BUN Creatinine 2.1 H Glucose 123 H POC Glucose Ferritin AST 48 H Lactate Dehydrogenase C-Reactive Protein Total Protein Albumin 3.4 L Arterial Blood Glucose Coronavirus (PCR) 04/13/21 04/13/21 04/14/21 23:02 23:02 08:46 WBC RBC MCV MCH MCHC RDW Plt Count Lymph % (Auto) Lymph # (Auto) Seg Neutrophils % Seg Neuts % (Manual) Lymphocytes % (Manual) Seg Neutrophils # Seg Neutrophils # Man Lymphocytes # (Manual) Monocytes # (Manual) D-Dimer POC ABG pO2 ABG Chloride ABG Glucose Carboxyhemoglobin Sodium Chloride Carbon Dioxide BUN Creatinine Glucose 124 H POC Glucose Ferritin 519.6 H AST Lactate Dehydrogenase 439 H C-Reactive Protein 2.50 H Total Protein Albumin Arterial Blood Glucose Coronavirus (PCR) Positive A 04/15/21 04/15/21 04/16/21 07:38 07:38 09:32 WBC 13.5 H RBC 5.44 H MCV 82 L MCH 26 L MCHC RDW 15.3 H Plt Count Lymph % (Auto) 6.8 L Lymph # (Auto) 0.9 L Seg Neutrophils % 88.2 H Seg Neuts % (Manual) Lymphocytes % (Manual) Seg Neutrophils # 11.9 H Seg Neutrophils # Man Lymphocytes # (Manual) Monocytes # (Manual) D-Dimer POC ABG pO2 ABG Chloride ABG Glucose Carboxyhemoglobin Sodium Chloride 108.8 H Carbon Dioxide 20 L 20 L BUN Creatinine Glucose 137 H 153 H POC Glucose Ferritin AST 47 H 61 H Lactate Dehydrogenase C-Reactive Protein Total Protein 8.3 H 6.2 L D Albumin 3.8 L 3.1 L Arterial Blood Glucose Coronavirus (PCR) 04/16/21 04/17/21 04/17/21 14:32 04:27 04:27 WBC 14.0 H RBC 5.55 H MCV 81 L MCH 25 L MCHC 31 L RDW Plt Count Lymph % (Auto) Lymph # (Auto) Seg Neutrophils % Seg Neuts % (Manual) 91.0 H Lymphocytes % (Manual) Seg Neutrophils # Seg Neutrophils # Man 12.7 H Lymphocytes # (Manual) 0.0 L Monocytes # (Manual) D-Dimer POC ABG pO2 79.1 L ABG Chloride 108.0 H ABG Glucose 142 H Carboxyhemoglobin 0.1 L Sodium Chloride 107.8 H Carbon Dioxide 20 L BUN Creatinine Glucose 150 H POC Glucose Ferritin AST 47 H Lactate Dehydrogenase C-Reactive Protein Total Protein Albumin 2.8 L Arterial Blood Glucose 142 H Coronavirus (PCR) 04/17/21 04/18/21 04/18/21 04:27 04:42 04:43 WBC RBC MCV MCH MCHC RDW Plt Count Lymph % (Auto) Lymph # (Auto) Seg Neutrophils % Seg Neuts % (Manual) Lymphocytes % (Manual) Seg Neutrophils # Seg Neutrophils # Man Lymphocytes # (Manual) Monocytes # (Manual) D-Dimer 339.80 H POC ABG pO2 ABG Chloride ABG Glucose Carboxyhemoglobin Sodium 147 H Chloride 111.3 H Carbon Dioxide 21 L BUN Creatinine Glucose 151 H POC Glucose Ferritin AST Lactate Dehydrogenase C-Reactive Protein 1.40 H Total Protein Albumin 3.1 L Arterial Blood Glucose Coronavirus (PCR) 04/19/21 04/22/21 04/24/21 23:32 00:22 04:44 WBC 18.9 H RBC 5.53 H MCV 82 L MCH 25 L MCHC 31 L RDW 15.5 H Plt Count 535 H Lymph % (Auto) Lymph # (Auto) Seg Neutrophils % Seg Neuts % (Manual) 91.0 H Lymphocytes % (Manual) 3.0 L Seg Neutrophils # Seg Neutrophils # Man 17.2 H Lymphocytes # (Manual) 0.6 L Monocytes # (Manual) D-Dimer POC ABG pO2 ABG Chloride ABG Glucose Carboxyhemoglobin Sodium Chloride Carbon Dioxide BUN 26 H Creatinine Glucose 173 H POC Glucose 171 H Ferritin AST Lactate Dehydrogenase C-Reactive Protein Total Protein Albumin Arterial Blood Glucose Coronavirus (PCR) 04/24/21 04/25/21 04/25/21 04:44 04:34 04:34 WBC 21.5 H RBC 5.45 H MCV 82 L MCH 26 L MCHC RDW Plt Count 543 H Lymph % (Auto) Lymph # (Auto) Seg Neutrophils % Seg Neuts % (Manual) 89.0 H Lymphocytes % (Manual) 4.0 L Seg Neutrophils # Seg Neutrophils # Man 19.1 H Lymphocytes # (Manual) 0.9 L Monocytes # (Manual) 0.9 H D-Dimer POC ABG pO2 ABG Chloride ABG Glucose Carboxyhemoglobin Sodium 134 L Chloride 96.4 L Carbon Dioxide BUN 29 H 26 H Creatinine Glucose 128 H 148 H POC Glucose Ferritin AST Lactate Dehydrogenase C-Reactive Protein Total Protein Albumin Arterial Blood Glucose Coronavirus (PCR) 04/25/21 04:34 WBC RBC MCV MCH MCHC RDW Plt Count Lymph % (Auto) Lymph # (Auto) Seg Neutrophils % Seg Neuts % (Manual) Lymphocytes % (Manual) Seg Neutrophils # Seg Neutrophils # Man Lymphocytes # (Manual) Monocytes # (Manual) D-Dimer POC ABG pO2 ABG Chloride ABG Glucose Carboxyhemoglobin Sodium Chloride Carbon Dioxide BUN Creatinine Glucose POC Glucose Ferritin 619.4 H AST Lactate Dehydrogenase C-Reactive Protein Total Protein Albumin Arterial Blood Glucose Coronavirus (PCR)
--- NOTE | 2021-04-25 12:47 | Discharge Summary ---
Providers - Providers Date of Admission: 04/16/21 10:29 Date of discharge: 04/25/21 Attending physician: JOSE RAMON KHOURY MD 04/14/21 04:31 Consult to Physician [CONS] Routine Comment: Consulting Provider: AMBROCIO HUYNH Physician Instructions: Reason For Exam: covid Consult to Physician [CONS] Routine Comment: Consulting Provider: CALOS KAMARA Physician Instructions: Reason For Exam: covid [facility] Reason for admission: Acute hypoxic respiratory failure Condition: Critical Pertinent studies: Reviewed. Procedures: None. Hospital course: The patient is a 31-year-old male past medical history of asthma, hypertension, and morbid obesity who presented with worsening shortness of breath and fever that was found to be secondary to COVID-19 pneumonia. Patient was found to be hypoxic in the emergency room and was started on supplemental oxygen. The patient's respiratory status continued to worsen patient required high flow nasal cannula. The patient was treated with IV steroids and remdesivir for COVID-19 (per protocol). The patient has since been weaned from oxygen and is medically cleared for discharge. The patient will continue a steroid taper to be completed in the outpatient setting. Disposition: 01 HOME / SELF CARE / HOMELESS Final Discharge Diagnosis (Prints w/discharge instructions): COVID-19 pneumonia, acute hypoxic respiratory failure, elevated D-dimer, bronchial asthma, OPHELIA (vasomotor nephropathy), anxiety, insomnia, morbid obesity Time spent for discharge: 45 min Core Measure Documentation - Palliative Care Palliative Care/ Comfort Measures: Not Applicable - Core Measures Any of the following diagnoses?: none Exam - Constitutional Vitals: Temp Pulse Resp BP Pulse Ox 97.3 F L 75 20 128/67 98 04/25/21 04:51 04/25/21 04:51 04/25/21 04:51 04/25/21 04:51 04/25/21 10:00 General appearance: Present: no acute distress, well-nourished, obese - EENT Eyes: Present: PERRL, EOM intact ENT: hearing intact, clear oral mucosa, dentition normal - Neck Neck: Present: supple, normal ROM - Respiratory Respiratory effort: normal Respiratory: bilateral: diminished - Cardiovascular Rhythm: regular Heart Sounds: Present: S1 & S2 - Extremities Extremities: no ischemia, pulses intact, pulses symmetrical, No edema, normal temperature, normal color, Full ROM Peripheral Pulses: within normal limits - Abdominal General gastrointestinal: Present: soft, non-tender, non-distended, normal bowel sounds Male genitourinary: Present: deferred - Rectal Rectal Exam: deferred - Integumentary Integumentary: Present: clear, warm, dry - Musculoskeletal Musculoskeletal: strength equal bilaterally - Psychiatric Psychiatric: appropriate mood/affect, memory intact, cooperative - Neurologic Neurologic: CNII-XII intact, moves all extremities - Allied Health Allied health notes reviewed: nursing Plan Care Plan Goals: The patient is safe for discharge. Assessment: The patient was admitted for acute hypoxic respiratory failure secondary to COVID-19 breakthrough infection. The patient was treated with IV steroids, Remdesivir, and supplemental oxygen. The patient has been weaned off of oxygen. The patient is medical ready for discharge. Follow up with: SCOTT DAMON MD [Primary Care Provider] - 3-5 Days Prescriptions: predniSONE [Deltasone] 20 mg PO QDAY #11 tab Famotidine [Pepcid] 20 mg PO BID #60 tablet
[2021-04-25 12:58] VITALS: BP 128/84
== END 2021-04-25 16:33 | disposition home or self-care (01) | DRG 177 ==
LOC: ED 22:26 → 3A 04-14 02:52 → IMCU 04-14 04:38 → 3A 04-14 18:44 → OBSVTOIN 04-16 10:29
PROVIDERS: ADMIT Hospitalist; ATTEND Student in an Organized Health Care Education/Training Program
PROC: XW033E5 Introduction of Remdesivir Anti-infective into Peripheral Vein, Percutaneous Approach, New Technology Group 5 (ICD-10-PCS; principal; 2021-04-15)
PROC: 4A033R1 Measurement of Arterial Saturation, Peripheral, Percutaneous Approach (ICD-10-PCS; 2021-04-16)
DX: U07.1 COVID-19 (principal); J12.82 Pneumonia due to coronavirus disease 2019; J96.01 Acute respiratory failure with hypoxia; N17.0 Acute kidney failure with tubular necrosis; J45.902 Unspecified asthma with status asthmaticus; Z68.41 Body mass index [BMI] 40.0-44.9, adult; E66.01 Morbid (severe) obesity due to excess calories; F41.9 Anxiety disorder, unspecified
CPT/HCPCS: 36415; 36600; 70450; 71045; 71275; 80048; 80053; 82140; 82728; 82805; 82947; 82962; 83615; 83735; 84100; 84145; 84484; 85007; 85025; 85379; 86140; 87040; 93005; 94640; 94644; 94760; 99291; G0378; Q0162; J0456; J0692; J0696; J1100; J1644; J1650; J1940; J2405; J2920; J2930; J3475; J7030; J7050; Q9967; U0003